=== PATIENT | male | born 1940 | race Caucasian/White ===

== ENCOUNTER 2018-04-30 05:35 | Emergency (ER) | payer MEDICARE ==
[~2018-04-30] VITALS: Ht 172.7 cm; Wt 81.6 kg
[~2018-04-30 05:35] MED LIST: ACET-687 PO; ASPI-484 PO; CARB1TAB2 PO; CARV6.25 PO; CLON0.5T11 PO; DIGO125T73 PO; METF500T27 PO; PANT40TA3 PO; PARO20TA4 PO; SIMV20TA3 PO; WARF-35 PO
--- NOTE | 2018-04-30 05:50 | ER.PDOC ---
General Chief Complaint: Requesting Medical Care Stated Complaint: FALL Time seen by MD: 05:45 Source: patient Exam Limitations: no limitations History of Present Illness Initial Comments Head and pelvic pain S/P fall. Occurred: just prior to arrival Where: home Severity: moderate Injuries/Pain Location: head, pelvis Context: Lost Balance Loss of Consciousness: No Loss of Consciousness Associated Symptoms: denies symptoms Allergies: Coded Allergies: morphine (Verified Allergy, Severe, HALLUCINATIONS, 10/27/16) MEDS Active Scripts Acetaminophen With Codeine (TYLENOL WITH CODEINE #4 TABLET) 1 Each Tablet, 1-2 EACH PO Q4 PRN for PAIN, #30 TABLET 2 Refills Prov:LILIBETH BOSS Roberto HAND SPRING REPAIRER 11/04/16 Reported Medications Metformin Hcl (METFORMIN HCL ER) 500 Mg Tab.er.24, 1 TAB PO DAILY, #90 TAB 1 Refill 10/28/16 Pantoprazole Sodium (PROTONIX) 40 Mg Tablet.dr, 1 TAB PO BID, #30 TAB 5 Refills 10/27/16 Carbidopa/Levodopa (SINEMET 25-100 MG TABLET) 1 Each Tablet, 1 TAB PO TID, #90 TAB 5 Refills 10/27/16 Clonazepam (CLONAZEPAM) 0.5 Mg Tablet, 1 TAB PO TID, #60 TAB 1 Refill 10/27/16 Aspirin (ASPIR 81) 81 Mg Tablet.dr, 1 TAB PO DAILY, #30 TAB 5 Refills 10/27/16 Warfarin Sodium (WARFARIN SODIUM) 5 Mg Tablet, 0.5 TAB PO DAILY, #90 TAB 3 Refills TUESDAY-TUESDAY AND Tuesday10/27/16 Warfarin Sodium (WARFARIN SODIUM) 5 Mg Tablet, 1 TAB PO DAILY, #90 TAB 1 Refill [id number] AND Tuesday10/27/16 Carvedilol 6.25MG (COREG 6.25MG) 6.25 Mg Tablet, 1 TAB PO BID, #180 TAB 1 Refill 10/27/16 Digoxin (Digitek) 125 Mcg Tablet, 125 MCG PO DAILY, TABLET 10/27/16 Simvastatin (SIMVASTATIN) 20 Mg Tablet, 1 TAB PO HS, #30 TAB 5 Refills 10/27/16 Paroxetine Hcl (PAROXETINE HCL) 20 Mg Tablet, 1 TAB PO HS, #30 TAB 5 Refills 10/27/16 Past Medical History Medical History: other (Parkinson) Review of Systems Constitutional: no symptoms reported Eyes: no symptoms reported Respiratory: no symptoms reported Cardiovascular: no symptoms reported Gastrointestinal: no symptoms reported Psychiatric/Neurological: see HPI All Other Systems: Reviewed and Negative Physical Exam General Appearance: No Apparent Distress, WD/WN, C-collar Head: No Evidence of Injury Neck: Normal Alignment, Normal Inspection, Tenderness Cardiovascular/Respiratory: Regular Rate, Rhythm, No M/R/G, Normal Peripheral Pulses, No JVD, Normal Breath Sounds, No Respiratory Distress Gastrointestinal: Normal Bowel Sounds, No Organomegaly, No Pulsatile Mass, Non Tender, Soft Back: Normal Inspection, No CVA Tenderness, No Vertebral Tenderness Extremities: Tenderness (pelvis) Neurologic/Psychiatric: practice managers II-XII NML as Tested, No Motor/Sensory Deficits, Alert, Normal Mood/Affect, Oriented x 3 Skin: Normal Color, Warm/Dry, Ecchymosis (right elbow from a fall 2 days ago) Oscar Coma Score Best Eye Response: (4) Open Spontaneously Best Verbal Response: (5) Oriented Best Motor Response: (6) Obeys Commands Results/Orders Results/Orders Laboratory Tests Test 04/30/18 06:05 04/30/18 06:21 White Blood Count 8.3 10^3/uL (4.5-11.0) Red Blood Count 4.18 10^6/uL (4.50-5.90) Hemoglobin 12.7 g/dL (13.9-16.3) Hematocrit 37.8 % (37.0-53.0) Mean Corpuscular Volume 90.4 fL (78-100) Mean Corpuscular Hemoglobin 30.4 pg (26-34) Mean Corpuscular Hemoglobin Concent 33.6 g/dL (33-37) Red Cell Distribution Width 16.9 % (11.5-14.5) Platelet Count 115 10^3/uL (150-400) Mean Platelet Volume 10.4 fL (7.8-11.0) Neutrophils (%) (Auto) 84.1 % (41.0-85.0) Lymphocytes (%) (Auto) 6.7 % (24.0-44.0) Monocytes (%) (Auto) 8.9 % (5.0-12.0) Neutrophils # (Auto) 7.0 10^3/uL (1.8-7.7) Lymphocytes # (Auto) 0.6 10^3/uL (1.0-4.8) Monocytes # (Auto) 0.7 10^3/uL (0.3-0.8) Absolute Immature Granulocyte (auto 0.01 10^3 u/L (0-2) Eosinophils % 0.1 % (0.0-5.0) Basophils % 0.1 % (0.0-0.2) Basophils # 0.0 10^3/uL (0.0-0.1) Eosinophil Count 0.0 10^3/uL (0.0-0.2) Prothrombin Time 36.5 SEC (9.8-11.9) Prothrombin Time INR (Non-Therap) 3.8 Activated Partial Thromboplast Time 41.0 SEC (24.67-30.72) Sodium Level 142 mmol/L (132-145) Potassium Level 4.1 mmol/L (3.6-5.2) Chloride Level 105.0 mmol/L (96-109) Carbon Dioxide Level 27.1 mmol/L (20.0-32) Anion Gap 14.0 Blood Urea Nitrogen 23 mg/dL (7-18) Creatinine 1.37 mg/dL (0.59-1.40) Estimated GFR () 60.6 (>/=60) BUN/Creatinine Ratio 16.0 Glucose Level 115 mg/dL (70-110) Calcium Level 8.2 mg/dL (8.4-10.5) Total Bilirubin 0.5 mg/dL (0.2-1.0) Aspartate Amino Transf (AST/SGOT) 36 U/L (0-35) Alanine Aminotransferase (ALT/SGPT) 24 U/L (12-78) Alkaline Phosphatase 50 U/L (50-136) Total Creatine Kinase 469 U/L (39-308) Troponin I 0.13 ng/mL (0.00-0.05) Total Protein 6.7 g/dL (6.4-8.2) Albumin 3.5 g/dL (3.4-5.0) Globulin 3.2 Percent Immature Gran (Cell Imm) 0.10 % (0.00-0.50) Differential Total Cells Counted 100 #CELLS Segmented Neutrophils 79 % (31-76) Band Neutrophils 10 % (2-6) Lymphocytes 6 % (25-36) Monocytes 5 % (3-9) Progress Progress Care of patient transferred to Dr. Milligan at 7am Departure Time of Disposition: 07:16 Disposition: 02 XFER SHT-TRM HOSP Impression: Primary Impression: Non-STEMI (non-ST elevated myocardial infarction) Condition: Stable Referrals: MONET HERNANDEZ (PCP) PRIMARY CARE PROVIDER Duration or Time Spent with Pa: 10 ELIANA DELGADILLO MD Apr 30, 2018 05:50 KEN MILLIGAN MD Apr 30, 2018 07:18
--- NOTE | 2018-04-30 05:56 | PCM.EKG ---
[facility] Test Date: 2018-04-30 Test Time: 05:51:46 Pat Name: MAGEN KWOK Department: Room: Gender: M Spacer Type Bar And Segment: : 1940 Requested By: ELIANA DELGADILLO Order Number: [id number] Reading MD: Eliana DELGADILLO Measurements Intervals [place] Rate: 84 P: 58 NC: 158 QRS: 42 QRSD: 156 T: -40 QT: 406 QTc: 479 Interpretive Statements Electronic ventricular pacemaker No previous ECG available for comparison Electronically Signed On 05-01-2018 7:27:23 PARTS RUNNER by Eliana DELGADILLO Please click the below link to view image of tracing.
[2018-04-30 06:12] LABS: BASOPHIL % 0.1 % (0.0-0.2); EOSINOPHIL % 0.1 % (0.0-5.0); HEMOGLOBIN 12.7 g/dL (13.9-16.3); LYMPHOCYTES # 0.6 10^3/uL (1.0-4.8); LYMPHOCYTES % 6.7 % (24.0-44.0); MEAN CELL HGB 30.4 pg (26-34); MEAN CELL HGB CONCENTRATION 33.6 g/dL (33-37); MEAN CORP VOLUME 90.4 fL (78-100); MEAN PLATELET VOLUME 10.4 fL (7.8-11.0); MONOCYTES # 0.7 10^3/uL (0.3-0.8); MONOCYTES % 8.9 % (5.0-12.0); NEUTROPHILS % 84.1 % (41.0-85.0); RED CELL DISTRIBUTION WIDTH 16.9 % (11.5-14.5); WHITE BLOOD CELL 8.3 10^3/uL (4.5-11.0)
[2018-04-30 06:40] LABS: CALCIUM 8.2 mg/dL (8.4-10.5); CARBON DIOXIDE 27.1 mmol/L (20.0-32)
--- NOTE | 2018-04-30 06:43 | DIREP ---
PROCEDURE:CT HEAD WITHOUT CONTRAST TECHNIQUE:Axial cuts were obtained through the head, without intravenous contrast material. The images were viewed at brain and bone settings. COMPARISON:None. INDICATIONS:Pain S/P fall FINDINGS: VENTRICLES:The ventricles and sulci are prominent consistent with age related atrophy. CEREBRUM:There is periventricular and deep white matter hypoattenuation most likely related to chronic small vessel ischemic changes. No hemorrhage is seen. There is no mass effect. If signs and symptoms continue follow up MRI may be beneficial as CT is not sensitive for acute/subacute stroke. CEREBELLUM:Negative. BRAINSTEM:Negative. BASAL CISTERNS:Negative. SKULL:Normal. SINUSES:Mucosal thickening in the bilateral ethmoid air cells and left maxillary sinus. OTHER:None CONCLUSION: 1. No acute intracranial hemorrhage or mass effect. Age related atrophy and chronic small vessel ischemic changes. 2. Extensive ethmoid air cell and left maxillary sinus disease. Dictated by: Deon Zamora MD on 04/30/2018 at 06:38 AM
--- NOTE | 2018-04-30 06:45 | DIREP ---
PROCEDURE:CHEST 1 VIEW COMPARISON:[facility], CR, XRAY CHEST SINGLE VW, 11/01/2016, 10:21 AM. [facility], CR, XRAY CHEST 2 VWS, 10/27/2016, 04:07 PM. INDICATIONS:cough FINDINGS: LUNGS/PLEURA:Evaluation of left lung base is limited due to overlying cardiac silhouette. Left basilar atelectasis. Right lung is clear. VASCULATURE:Mildly prominent central pulmonary vasculature. CARDIAC:Enlarged cardiac silhouette possibly exaggerated by portable technique. MEDIASTINUM:Normal. No visible mass or adenopathy. BONES:Normal. No fracture or visible bony lesion. OTHER:Negative. CONCLUSION:Limited portable. Retrocardiac opacity cannot be excluded. Clear right lung. Dictated by: Deon Zamora MD on 04/30/2018 at 06:41 AM
--- NOTE | 2018-04-30 06:45 | DIREP ---
PROCEDURE:XRAY ELBOW 2VWS-RT COMPARISON:None. INDICATIONS:Pain S/P fall FINDINGS: BONES:Normal. JOINTS:Normal. No displaced anterior or posterior fat pads. SOFT TISSUES:Normal. OTHER:Normal. CONCLUSION:No acute bony findings. Dictated by: Deon Zamora MD on 04/30/2018 at 06:43 AM
--- NOTE | 2018-04-30 06:52 | DIREP ---
PROCEDURE: CT SPINE CERVICAL W/O COMPARISON:None. INDICATIONS:Pain S/P fall FINDINGS: ALIGNMENT:Straightening the normal cervical curvature. VERTEBRAE:Endplate Schmorl's nodes are seen at C5-C7. No compression fracture noted. PARASPINAL AREA:Normal. OTHER:No additional findings. CERVICAL DISC LEVELS C2-C3:Large exophytic left-sided facet hypertrophy causing severe left neural foraminal narrowing. C3-C4:Moderate disc height loss. Bilateral facet hypertrophy and posterior disc osteophyte complex causing severe neural from narrowing bilaterally. C4-C5:Bilateral facet hypertrophy causing moderate severe neural foraminal narrowing bilaterally. C5-C6:Severe disc height loss. Bilateral facet hypertrophy causing moderate bilateral neural foraminal narrowing. C6-C7:Severe disc height loss. Bilateral facet hypertrophy and disc osteophyte complex causing moderate severe bilateral neural foraminal narrowing and moderate spinal canal narrowing. C7-T1:Normal. CONCLUSION: No fracture or listhesis. Multilevel degenerative changes with moderate to severe neural foraminal narrowing as above. Dictated by: Deon Zamora MD on 04/30/2018 at 06:44 AM
[2018-04-30 06:54] LABS: BAND NEUTROPHILS 10 % (2-6); LYMPHOCYTE 6 % (25-36); MONOCYTE 5 % (3-9); SEGMENTED NEUTROPHILS 79 % (31-76)
--- NOTE | 2018-04-30 06:56 | NUR ---
C-COLLAR CLEARED BY EDP
--- NOTE | 2018-04-30 07:01 | DIREP ---
PROCEDURE:CT PELVIS W/O COMPARISON:None. INDICATIONS:Pain S/P fall TECHNIQUE:Axial images were created through the pelvis without intravenous contrast material. No oral contrast was administered. Sagittal and coronal reconstructions were performed from source images. FINDINGS: AORTA/VASCULAR:Atherosclerotic plaque. RETROPERITONEUM:Normal. No mass or adenopathy. BOWEL/MESENTERY:Diverticulosis without CT evidence of diverticulitis. ABDOMINAL WALL:Normal. No mass or hernia. PELVIC ORGANS:Enlarged prostate measuring 5.2 cm. Mild bladder wall thickening. BONES:Normal for age. No bony lesion or acute fracture. OTHER:Negative. CONCLUSION: No acute findings. Diverticulosis without CT evidence of diverticulitis. Enlarged prostate. Dictated by: Deon Zamora MD on 04/30/2018 at 06:52 AM
--- NOTE | 2018-04-30 07:25 | NUR ---
[facility] ON COMPLETE DIVERS[facility].
--- NOTE | 2018-04-30 07:28 | NUR ---
[facility] UNABLE TO TAKE PATIENT AT THIS TIME.
--- NOTE | 2018-04-30 07:29 | NUR ---
[facility] PATIENT FAMILY AGREES TO PATIENT GOING TO [facility] FOR CARDIAC.
[2018-04-30 07:37] VITALS: BP 139/69
[2018-04-30] MEDS ORDERED: LOPRESSER IVP STA (07:42)
[2018-04-30] MEDS ORDERED: ASPIRIN ONE (07:48)
[2018-04-30] MEDS ORDERED: ASPIRIN PO STA (07:48)
[2018-04-30] MEDS ORDERED: LOPRESSER ONE (07:48)
[2018-04-30] MEDS ORDERED: LIPITOR PO SCH (08:00)
--- NOTE | 2018-04-30 08:06 | NUR ---
REPEAT EKG CALLED FOR REPEAT EKG.
--- NOTE | 2018-04-30 08:08 | NUR ---
[facility] DISPTACH CALLED FOR STATUS OF LIFE [facility]AR.
--- NOTE | 2018-04-30 08:16 | PCM.EKG ---
[facility] Test Date: 2018-04-30 Test Time: 08:11:59 Pat Name: MAGEN KWOK Department: Room: Gender: M Ssis Architect: : 1940 Requested By: KEN MILLIGAN Order Number: [id number] Reading MD: Ken Milligan Measurements Intervals [place] Rate: 122 P: 78 ND: 120 QRS: -53 QRSD: 162 T: 117 QT: 340 QTc: 484 Interpretive Statements Sinus tachycardia with fusion complexes with junctional escape complexes Left axis deviation Left bundle branch block Abnormal ECG No previous ECG available for comparison Electronically Signed On 05-06-2018 2:52:29 TOXICS PROGRAM OFFICER by Ken Milligan Please click the below link to view image of tracing.
[2018-04-30 08:19] VITALS: BP 150/96
--- NOTE | 2018-04-30 08:23 | NUR ---
REPORT CALLED TO [facility] ER.
--- NOTE | 2018-04-30 08:30 | NUR ---
[facility] RESUMED REPORT OF PATIENT AT THIS TIME.
[2018-04-30 09:11] VITALS: BP 150/96
== END 2018-04-30 08:40 | disposition short-term general hospital (02) ==
LOC: EDUNIT# 05:35 → EDBD 05:35 → ER 05:35
DX: S50.01XA Contusion of right elbow, initial encounter (principal); I21.4 Non-ST elevation (NSTEMI) myocardial infarction; R10.2 Pelvic and perineal pain; R51 Headache; Z79.01 Long term (current) use of anticoagulants; Z88.5 Allergy status to narcotic agent; Z79.82 Long term (current) use of aspirin; Z79.899 Other long term (current) drug therapy; W19.XXXA Unspecified fall, initial encounter; Y93.89 Activity, other specified; Y92.098 Other place in other non-institutional residence as the place of occurrence of the external cause; Y99.8 Other external cause status
CPT/HCPCS: 36415; 70450; 71045; 72125; 72192; 73070; 80053; 82550; 84484; 85025; 85610; 85730; 93005 ×2; 96374; 99285; J3490

== ENCOUNTER 2018-06-03 13:59 | Inpatient (IN) | payer MEDICARE ==
[2018-06-03] VITALS (16 sets, daily range): BP systolic 84–156; BP diastolic 36–99
[~2018-06-03] VITALS: Ht 172.7 cm; Wt 82.6 kg
[2018-06-03] MEDS ORDERED: NS 1000ML 1,000 ML IV STA (14:38)
[2018-06-03 14:56] LABS: BASOPHIL % 0.2 % (0.0-0.2); EOSINOPHIL # 0.1 10^3/uL (0.0-0.2); HEMOGLOBIN 10.8 g/dL (13.9-16.3); LYMPHOCYTES # 1.1 10^3/uL (1.0-4.8); LYMPHOCYTES % 12.2 % (24.0-44.0); MEAN CELL HGB CONCENTRATION 32.5 g/dL (33-37); MEAN CORP VOLUME 95.4 fL (78-100); MEAN PLATELET VOLUME 10.2 fL (7.8-11.0); MONOCYTES % 10.5 % (5.0-12.0); RED CELL DISTRIBUTION WIDTH 17.2 % (11.5-14.5); WHITE BLOOD CELL 9.2 10^3/uL (4.5-11.0)
[2018-06-03 15:12] LABS: CALCIUM 8.6 mg/dL (8.4-10.5); CARBON DIOXIDE 27.5 mmol/L (20.0-32)
--- NOTE | 2018-06-03 15:13 | ER.PDOC ---
General Chief Complaint: Skin Rash/Abscess Stated Complaint: BLISTER/SWOLLEN L FT. Time seen by MD: 15:08 Source: patient, family Exam Limitations: no limitations History of Present Illness Initial Comments Left leg swelling and pain S/P fall 5 days ago. Patient also developed blisters. Patient seen in [place] ED 3 days ago. Where: home Severity: moderate Exacerbated By: walking movement Relieved By: nothing Prior symptoms/Treatment: Recenly Seen, Treated by Doctor Allergies: Coded Allergies: morphine (Verified Allergy, Severe, HALLUCINATIONS, 10/27/16) Home Meds Active Scripts Acetaminophen With Codeine (TYLENOL WITH CODEINE #4 TABLET) 1 Each Tablet, 1-2 EACH PO Q4 PRN for PAIN, #30 TABLET 2 Refills Prov:LILIBETH BOSS NP 11/04/16 Reported Medications Metformin Hcl (METFORMIN HCL ER) 500 Mg Tab.er.24, 1 TAB PO DAILY, #90 TAB 1 Refill 10/28/16 Pantoprazole Sodium (PROTONIX) 40 Mg Tablet., 1 TAB PO BID, #30 TAB 5 Refills 10/27/16 Carbidopa/Levodopa (SINEMET 25-100 MG TABLET) 1 Each Tablet, 1 TAB PO TID, #90 TAB 5 Refills 10/27/16 Clonazepam (CLONAZEPAM) 0.5 Mg Tablet, 1 TAB PO TID, #60 TAB 1 Refill 10/27/16 Aspirin (ASPIR 81) 81 Mg Tablet.dr, 1 TAB PO DAILY, #30 TAB 5 Refills 10/27/16 Warfarin Sodium (WARFARIN SODIUM) 5 Mg Tablet, 0.5 TAB PO DAILY, #90 TAB 3 Refills TUESDAY-TUESDAY AND Tuesday10/27/16 Warfarin Sodium (WARFARIN SODIUM) 5 Mg Tablet, 1 TAB PO DAILY, #90 TAB 1 Refill [id number] AND Tuesday10/27/16 Carvedilol 6.25MG (COREG 6.25MG) 6.25 Mg Tablet, 1 TAB PO BID, #180 TAB 1 Refill 10/27/16 Digoxin (Digitek) 125 Mcg Tablet, 125 MCG PO DAILY, TABLET 10/27/16 Simvastatin (SIMVASTATIN) 20 Mg Tablet, 1 TAB PO HS, #30 TAB 5 Refills 10/27/16 Paroxetine Hcl (PAROXETINE HCL) 20 Mg Tablet, 1 TAB PO HS, #30 TAB 5 Refills 10/27/16 Past Medical History Medical History: arrhythmia, coronary artery disease, cardiac problems, congestive heart failure, diabetes, high cholesterol, hypertension, parkinson, renal disease Surgical History: cardiac cath, angioplasty, knee, pacemaker/ICD, stent Social History Smoking: non-smoker Alcohol Use: none Drug Use: none Review of Systems Constitutional: no symptoms reported EENTM: no symptoms reported Respiratory: no symptoms reported Cardiovascular: no symptoms reported Gastrointestinal: no symptoms reported Musculoskeletal: see HPI Skin: see HPI All Other Systems: Reviewed and Negative Physical Exam General Appearance: Alert, No Apparent Distress Lower Extremity: tenderness (left leg), swelling (left leg with blisters on medial aspect of distal leg and dorsal aspect of foot) Joint Exam: joints nml, nml ROM, nml gait/weight bearing Vascular: poor cap refill (with paresthesia of left leg), decreased pulses Neuro/Psych: sensation nml, motor nml, oriented x3, CN's nml as tested, mood/ affect nml Skin: color nml, warm/dry Back/Neck: nml inspection Respiratory: no resp distress, breath sounds nml CVS: reg rate & rhythm, heart sounds nml Abdomen: non-tender, no organomegaly, no bruit/mass Results/Orders Results/Orders Laboratory Tests Test 06/03/18 14:40 White Blood Count 9.2 10^3/uL (4.5-11.0) Red Blood Count 3.48 10^6/uL (4.50-5.90) Hemoglobin 10.8 g/dL (13.9-16.3) Hematocrit 33.2 % (37.0-53.0) Mean Corpuscular Volume 95.4 fL (78-100) Mean Corpuscular Hemoglobin 31.0 pg (26-34) Mean Corpuscular Hemoglobin Concent 32.5 g/dL (33-37) Red Cell Distribution Width 17.2 % (11.5-14.5) Platelet Count 165 10^3/uL (150-400) Mean Platelet Volume 10.2 fL (7.8-11.0) Neutrophils (%) (Auto) 76.0 % (41.0-85.0) Lymphocytes (%) (Auto) 12.2 % (24.0-44.0) Monocytes (%) (Auto) 10.5 % (5.0-12.0) Neutrophils # (Auto) 7.0 10^3/uL (1.8-7.7) Lymphocytes # (Auto) 1.1 10^3/uL (1.0-4.8) Monocytes # (Auto) 1.0 10^3/uL (0.3-0.8) Absolute Immature Granulocyte (auto 0.01 10^3 u/L (0-2) Eosinophils % 1.0 % (0.0-5.0) Basophils % 0.2 % (0.0-0.2) Basophils # 0.0 10^3/uL (0.0-0.1) Eosinophil Count 0.1 10^3/uL (0.0-0.2) Prothrombin Time 22.2 SEC (9.8-11.9) Prothrombin Time INR (Non-Therap) 2.3 Activated Partial Thromboplast Time 37.4 SEC (24.67-30.72) Sodium Level 141 mmol/L (132-145) Potassium Level 4.3 mmol/L (3.6-5.2) Chloride Level 105.0 mmol/L (96-109) Carbon Dioxide Level 27.5 mmol/L (20.0-32) Anion Gap 12.8 Blood Urea Nitrogen 25 mg/dL (7-18) Creatinine 1.53 mg/dL (0.59-1.40) Estimated GFR () 53.4 (>/=60) BUN/Creatinine Ratio 16.0 Glucose Level 125 mg/dL (70-110) Calcium Level 8.6 mg/dL (8.4-10.5) Total Bilirubin 0.9 mg/dL (0.2-1.0) Aspartate Amino Transf (AST/SGOT) 60 U/L (0-35) Alanine Aminotransferase (ALT/SGPT) 12 U/L (12-78) Alkaline Phosphatase 58 U/L (50-136) Total Protein 6.7 g/dL (6.4-8.2) Albumin 3.5 g/dL (3.4-5.0) Globulin 3.2 Percent Immature Gran (Cell Imm) 0.10 % (0.00-0.50) Administered Medications Medications (Trade) Dose Ordered Sig/Feliz Route PRN Reason Start Time Stop Time Status Last Admin Dose Admin Sodium Chloride 1,000 ml @ 1,200 mls/hr Q50M STAT IV 06/03/18 14:38 06/03/18 15:27 DC 06/03/18 14:53 Microbiology Date/Time Source Procedure Growth Status 06/03/18 14:40 Leg Left Gram Stain - Final Resulted 06/03/18 14:40 Leg Left Wound Culture Pending Resulted Progress Progress CT lower extremity: No evidence of acute bony or joint abnormality. Abnormal high density soft tissue in the lateral space suggesting hematoma. This should be evaluated in its clinical context to determine if additional evaluation is warranted. Departure Time of Disposition: 17:22 Disposition: 09 ADMITTED INPATIENT Impression: Primary Impression: Compartment syndrome of left lower extremity Additional Impression: Leg injury Condition: Stable Referrals: MONET HERNANDEZ (PCP) PRIMARY CARE PROVIDER Comments Patient taken to Surgery by Dr. Calle and will be admitted. Duration or Time Spent with Pa: 60 mins Problem Qualifiers Primary Impression: Compartment syndrome of left lower extremity Encounter type: initial encounter Qualified Codes: T79.A22A - Traumatic compartment syndrome of left lower extremity, initial encounter Additional Impression: Leg injury Encounter type: initial encounter Laterality: left Qualified Codes: S89.92XA - Unspecified injury of left lower leg, initial encounter ELIANA DELGADILLO MD Jun 03, 2018 15:13
--- NOTE | 2018-06-03 16:09 | DIREP ---
PROCEDURE:CT LOWER EXTREMITY-LT W/O COMPARISON:None. INDICATIONS:Pain and swelling of leg with blisters S/P fall 5 days ago. TECHNIQUE:Multi-planar CT images of the left calf were created without intravenous contrast. FINDINGS: BONES: No visible fracture. Knee arthroplasty. Old fracture deformity of the distal fibula. JOINTS: No dislocation. Degenerative changes to the ankle. OTHER: Localize high density soft tissue in the lateral calf measuring 28.2 x 10.1 x 4.0 cm. CONCLUSION: 1. No evidence of acute bony or joint abnormality. Abnormal high density soft tissue in the lateral space suggesting hematoma. This should be evaluated in its clinical context to determine if additional evaluation is warranted. Dictated by: Viraj Daigle M.D. on 06/03/2018 at 03:57 PM
[2018-06-03] MEDS ORDERED: VITAMIN K IM STA (16:53)
[2018-06-03] MEDS ORDERED: SODIUM CHLORIDE IR ONE (17:05)
[2018-06-03] MEDS ORDERED: NS 1000ML 1,000 ML ONE (17:21)
[2018-06-03] MEDS ORDERED: SUBLIMAZE ONE (17:22)
[2018-06-03] MEDS ORDERED: DIPRIVAN IV ONE (17:22)
[2018-06-03] MEDS ORDERED: DECADRON ONE (17:22)
[2018-06-03] MEDS ORDERED: NS 100ML 100 ML IV ONE ×2 (17:22→23:50)
[2018-06-03] MEDS ORDERED: AMIDATE IV ONE (17:22)
[2018-06-03] MEDS ORDERED: ZOFRAN ONE (17:22)
[2018-06-03] MEDS ORDERED: VITAMIN K ONE ×2 (17:24→17:42)
--- NOTE | 2018-06-03 17:39 | HPH ---
ADMIT DATE: 06/03/2018 CHIEF COMPLAINT: Painful left lower leg. HISTORY OF PRESENT ILLNESS: The patient is a 77-year-old male. He fell approximately 5-6 days ago at home injuring his left lower leg. Apparently, at first he was able to ambulate, but over the next several days, he began having more pain and swelling about the left lower leg. On , which was approximately 2 days ago, he was seen in the Emergency Room in [place] where he was advised to keep his leg elevated and use ice packs. The patient continued to have pain and swelling about the left leg and his family brought him to the Emergency Room in [place] today. The patient is on Coumadin for cardiac reasons. According to the family on Tuesday, he saw his showcase maker and his INR was elevated and they advocated that he stop his Coumadin at that point. The patient has been off Coumadin for the last 3 days. PAST MEDICAL HISTORY: Medical problems include history of atrial fibrillation, history of congestive heart failure, coronary artery disease. He has diabetes, hypertension, Parkinson's. MEDICATIONS: Please see list on the chart. ALLERGIES: Include MORPHINE and CODEINE PAST SURGICAL HISTORY: Includes bilateral knee replacement, pacemaker and defibrillator placement, placement of cardiac stent. REVIEW OF SYSTEMS: Positive for numbness about the left lower leg, but is negative for chest pain, shortness of breath, nausea, vomiting, melena, hematochezia, dysuria, hematuria, fever, chills, or weight loss. FAMILY HISTORY: Unknown. PHYSICAL EXAMINATION: GENERAL: Shows a healthy-appearing 77-year-old male in no acute distress. HEENT: Within normal limits. CHEST: Clear to auscultation. HEART: Regular rate and rhythm, no murmur. EXTREMITIES: The patient's left lower extremity distal to the knee, he has quite a few fracture blisters, some have already popped and others are still present. On the dorsal aspect of his foot, he has a fairly large fracture blister. The patient is unable to extend his toes, but he is able to plantar flex his toes. He really has no dorsi or plantar flexion about his ankle. He has diffuse numbness over the plantar medial, dorsal and lateral aspect of his left foot compared to the right. The patient's compartments are extremely swollen and very tight. He does not have any pain with passive flexion and extension of his toes. He has a 1+ dorsalis pedis pulse. The patient has quite a bit of bruising all down the lateral side of his leg. IMAGING: The patient's x-rays are negative for any fractures. His CT scan shows a hematoma anterolaterally. The patient's upper extremities and right lower extremities have no areas of tenderness or deformity. He has normal sensation about the left lower extremity including the left foot and ankle with normal flexion and extension of his toes and ankles. ASSESSMENT: Compartment syndrome, left lower leg. Other diagnoses include diabetes, hypertension, coronary artery disease, history of atrial fibrillation, history of coronary artery disease, Coumadin toxicity history. PLAN: The patient will be taken to the operating room for fasciotomies. The risks and hazards of the procedure have been discussed with the family. He will be given fresh frozen plasma. The patient and the family understand there will be multiple procedures. Oseas Calle MD DR: ANILA/gabby JOB# [id number]
[2018-06-03] MEDS ORDERED: ANCEF ONE ×2 (17:46→23:49)
[2018-06-03] MEDS ORDERED: NS 250ML 250 ML IV ONE (17:46)
[2018-06-03] MEDS ORDERED: LACTATED RINGERS 1,000 ML ONE (18:50)
[2018-06-03] MEDS ORDERED: ZOFRAN IV PRN ×2 (19:30)
[2018-06-03] MEDS ORDERED: VENTOLIN IH PRN (19:30)
[2018-06-03] MEDS ORDERED: BENADRYL IV PRN (19:30)
[2018-06-03] MEDS ORDERED: SUBLIMAZE IV PRN (19:30)
[2018-06-03] MEDS ORDERED: LACTATED RINGERS 1,000 ML IV SCH (19:30)
[2018-06-03] MEDS ORDERED: CEPACOL SORE THROAT LOZENGE MM PRN (19:30)
[2018-06-03] MEDS: DEMEROL IV PRN (20:01)
[2018-06-03] MEDS ORDERED: NS 500ML 500 ML IV STA (20:48)
[2018-06-03] MEDS ORDERED: TOPROL XL PO STA (20:48)
--- NOTE | 2018-06-03 20:54 | PCM.EKG ---
[facility] Test Date: 2018-06-03 Test Time: 20:39:53 Pat Name: MAGEN KWOK Department: Room: 340 A Gender: M Family Preservation Worker: CATY : 1940 Requested By: LONG ORTEGA Order Number: [id number] Reading MD: Ruben Gonzalez Measurements Intervals [place] Rate: 119 P: NV: QRS: -44 QRSD: 174 T: 120 QT: 426 QTc: 599 Interpretive Statements Atrial fibrillation with occasional Left axis deviation Left bundle branch block Abnormal ECG Compared to ECG 04/30/2018 08:11:59 Sinus tachycardia no longer present Junctional escape complex(es) no longer present Fusion complex(es) no longer present Electronically Signed On 06-05-2018 7:59:09 PRODUCTION TROUBLESHOOTER by Ruben Gonzalez Please click the below link to view image of tracing.
[2018-06-03] MEDS ORDERED: LOPRESSER ONE (20:57)
[2018-06-03] MEDS: PAXIL PO SCH (20:59)
[2018-06-03] MEDS: PROTONIX PO SCH (20:59)
[2018-06-03] MEDS: SINEMET 25/100 PO SCH (20:59)
[2018-06-03] MEDS: COREG PO SCH (21:00)
[2018-06-03] MEDS: KLONOPIN PO SCH (21:00)
[2018-06-03] MEDS: ANCEF 2 GM/D5W 50ML IV SCH (23:53)
[2018-06-04] MEDS: ULTRAM PO PRN ×3 (00:01→21:26)
--- NOTE | 2018-06-04 01:20 | OPH ---
DATE OF SURGERY: 06/03/2018 PREOPERATIVE DIAGNOSES: 1. Compartment syndrome of the left lower leg. 2. Hematoma, left lower leg. POSTOPERATIVE DIAGNOSES: 1. Compartment syndrome of the left lower leg. 2. Hematoma, left lower leg. OPERATIVE PROCEDURES: 1. I and D of a large hematoma over the anterolateral aspect of the left lower leg. 2. Full compartment fasciotomy, left lower leg. SURGEON: Oseas Calle MD ANESTHESIA: LMA. TOURNIQUET TIME: 23 minutes at 300 mmHg. DRAINS: None. BLOOD LOSS: 300 mL. DESCRIPTION OF INDICATIONS: The patient is a 77-year-old male. He fell approximately 5 days ago at home, injuring his left lower leg. Earlier that day, the patient had seen his psychiatric mental health nurse in [place] and he was informed that his INR was too high for his Coumadin therapy and was advised to stop his Coumadin 5 days ago. The Coumadin was stopped by the family. Over the next several days, the patient continued to have increasingly severe swelling about the left lower leg. Approximately 2 days ago, he was seen in the [facility] because of some fracture blisters about the left lower leg. He was advised to keep the leg elevated as much as possible and to stay off of it. The family brought him to the [facility] this afternoon because of continued swelling and more fracture blisters as well as some malodorous lesions about the left lower leg. They denied any fever or chills. The patient on exam complained of numbness about the medial, dorsal and lateral aspects of his left foot. He had no active extension of the toes or the ankle. He had slight flexion of the toes. The patient had an extreme amount of swelling anterolaterally as well as some pain medially and posteriorly about the leg. His compartments felt very tight. The patient really did not have any significant pain with flexion and extension of his toes or ankle. The patient had large fracture blisters on the dorsal portion of his foot. He had multiple areas of skin necrosis that were 3-4 cm in diameter in circular manner over the anterolateral border of his leg. The patient had 1+ dorsalis pedis pulse. The x-rays did not show any fractures. The CT scan showed large hematoma anterolaterally about his leg. The patient was felt to have a compartment syndrome of unknown duration. The patient has a certain amount of dementia and the family really cannot tell me exactly how long had he had numbness about his foot and ankle. It is my opinion that we should proceed with immediate fasciotomy of his leg with decompression of the hematoma. The patient already had numbness and weakness. However, I felt it was more prudent to proceed with decompression as opposed to observation, although the problem could have been several days old. The patient was taken to the operating room for the above procedures. DESCRIPTION OF PROCEDURE: The patient was placed on the operating table in the supine position. LMA anesthetic was induced without difficulty. The patient had the well-padded tourniquet placed around the right thigh. He was given 10 mg of vitamin K and 1 unit of fresh frozen plasma. His preoperative INR was 2.4. The patient then had the left lower extremity sterilely prepped and draped. The leg was elevated for 60 seconds and the tourniquet was inflated to 300 mmHg. The patient then had an anterolateral incision made about the leg extending from the fibular head down to about 2 inches proximal to the tip of the lateral malleolus. A huge hematoma under quite a bit of tension was encountered and decompressed. The patient had extremely large amount of hematoma compressing the anterior and lateral compartments. The hematoma was evacuated. The anterior compartment was decompressed from proximal to distal. Likewise, the lateral compartment was decompressed from proximal to distal over the shaft of the fibula. The patient then had an incision made just posterior to the posteromedial border of his tibia. The incision was taken through the skin and the subcutaneous tissues. The muscle belly was dissected off of the posteromedial edge of his tibia. This decompressed the deep compartment. The superficial compartment was decompressed through a separate fascial incision more posteriorly. Once the wounds were all irrigated, then the tourniquet was released. Any bleeding was controlled with the cautery. The wounds were left open and the wounds were dressed with Adaptic, 4 x 4s, ABD pad, cast padding and Ronaldo wrap from his knee down to his foot. The patient was extubated in the operating room and sent to recovery in stable condition. Oseas Calle MD DR: ANILA/gabby JOB# [id number]
[2018-06-04 01:27] VITALS: BP 107/63
[2018-06-04 04:47] VITALS: BP 104/64
[2018-06-04 05:41] LABS: HEMOGLOBIN 8.5 g/dL (13.9-16.3); MEAN CELL HGB 30.6 pg (26-34); MEAN CELL HGB CONCENTRATION 31.5 g/dL (33-37); MEAN CORP VOLUME 97.1 fL (78-100); MEAN PLATELET VOLUME 10.4 fL (7.8-11.0); RED CELL DISTRIBUTION WIDTH 17.1 % (11.5-14.5); WHITE BLOOD CELL 9.7 10^3/uL (4.5-11.0)
[2018-06-04] MEDS ORDERED: NS 100ML 100 ML IV ONE (06:15)
[2018-06-04] MEDS ORDERED: ANCEF ONE (06:15)
[2018-06-04] MEDS: ANCEF 2 GM/D5W 50ML IV SCH (06:21)
[2018-06-04 07:42] VITALS: BP 98/59
[2018-06-04] MEDS: COLACE PO SCH (08:21)
[2018-06-04] MEDS: SINEMET 25/100 PO SCH ×3 (08:21→21:23)
[2018-06-04] MEDS: LANOXIN PO SCH (08:21)
[2018-06-04] MEDS: KLONOPIN PO SCH ×3 (08:22→21:24)
[2018-06-04] MEDS: COREG PO SCH ×3 (08:22→21:24)
[2018-06-04] MEDS: PEPCID PO SCH (08:22)
[2018-06-04] MEDS: PROTONIX PO SCH ×2 (08:22→21:24)
[2018-06-04] MEDS: GLUCOPHAGE XR PO SCH (09:00)
--- NOTE | 2018-06-04 09:20 | PRM.CONS ---
Consultation History of Present Illness History of Patient Comments 77 yo male presented to with severe leg pain and swelling after a fall 4 days ago. Found to have hematoma and compartment syndrome of the left lower leg and went to OR early this AM for fasciotomy and hematoma evacuation. Pt. has end-stage Parkinson's Disease and has profound shuffling gait. Multiple recent falls including head trauma and bilateral LE injury. 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 Secondary to the pt's very high risk of continued falls and complications from those falls, I would not recommend he be on anything stronger than an 81 mg daily ASA. Risk of CVA in Afib and CHF is about 7% per year and is far outweighed by his risk of continued multiple falls and trauma. Continue IVF for JENNIFER. Thank you for consultation! Consultation # [id number] Review of Systems Allergies: Coded Allergies: morphine (Verified Allergy, Severe, HALLUCINATIONS, 10/27/16) codeine (Verified Allergy, Intermediate, 06/03/18) Scheduled Aspirin (Aspir 81), 1 TAB PO DAILY, (Reported) Carbidopa/Levodopa (Sinemet 25-100 Mg Tablet), 1 TAB PO TID, (Reported) Carvedilol 6.25MG (Coreg 6.25MG), 1 TAB PO BID, (Reported) Clonazepam (Clonazepam), 1 TAB PO TID, (Reported) Digoxin (Digitek), 125 MCG PO DAILY, (Reported) Metformin Hcl (Metformin Hcl Er), 1 TAB PO DAILY, (Reported) Pantoprazole Sodium (Protonix), 1 TAB PO BID, (Reported) Paroxetine Hcl (Paroxetine Hcl), 1 TAB PO HS, (Reported) Simvastatin (Simvastatin), 1 TAB PO HS, (Reported) Warfarin Sodium (Warfarin Sodium), 1 TAB PO DAILY, (Reported) Warfarin Sodium (Warfarin Sodium), 0.5 TAB PO DAILY, (Reported) Scheduled PRN Acetaminophen With Codeine (Tylenol With Codeine #4 Tablet), 1-2 EACH PO Q4 PRN for PAIN VTE VTE Risk Total Score: 3 VTE Risk Score VTE Risk: Score 0-1 = Low Risk (Aggressive mobilization; early ambulation; no VTE prophylaxis required) Score 2: Moderate Risk (Intermittent/Pneumatic Compression Device OR Lovenox/Heparin/Coumadin) Score 3-4: High Risk (Intermittent/Pneumatic Compression Device AND Lovenox/Heparin/Coumadin) Score > or =5: Highest Risk (Intermittent/Pneumatic Compression Device AND Lovenox/Heparin/Coumadin) Assessment/Plan Assessment/Plan Patient History: No known health problems 32 MOTHER, , Age:87 19 CHILD 19 CHILD, , Age:27 19 CHILD, , Age:54 Parkinson's disease G8 BROTHER, , Age:81 No Family History of: Alzheimer's disease Asthma Cerebrovascular disorder Chronic obstructive pulmonary disease Congestive heart failure Diabetes insipidus Diabetes mellitus Hypertension LONG ORTEGA MD Jun 04, 2018 09:20
[2018-06-04 11:56] VITALS: BP 100/53
--- NOTE | 2018-06-04 12:43 | PRM.PN ---
Subjective Subjective Date: Jun 04, 2018 Time: 12:41 Subjective Pain ok VSS HGB 8.5 postop anemia from surgery expected No sensation on foot but able to extend his toes Cont with PT IV antibiotics Patient History: No known health problems 32 MOTHER, , Age:87 19 CHILD 19 CHILD, , Age:27 19 CHILD, , Age:54 Parkinson's disease G8 BROTHER, , Age:81 No Family History of: Alzheimer's disease Asthma Cerebrovascular disorder Chronic obstructive pulmonary disease Congestive heart failure Diabetes insipidus Diabetes mellitus Hypertension VTE VTE Risk Total Score: 3 VTE Risk Score VTE Risk: Score 0-1 = Low Risk (Aggressive mobilization; early ambulation; no VTE prophylaxis required) Score 2: Moderate Risk (Intermittent/Pneumatic Compression Device OR Lovenox/Heparin/Coumadin) Score 3-4: High Risk (Intermittent/Pneumatic Compression Device AND Lovenox/Heparin/Coumadin) Score > or =5: Highest Risk (Intermittent/Pneumatic Compression Device AND Lovenox/Heparin/Coumadin) Review of Systems Allergies: Coded Allergies: morphine (Verified Allergy, Severe, HALLUCINATIONS, 10/27/16) codeine (Verified Allergy, Intermediate, 06/03/18) Scheduled Aspirin (Aspir 81), 1 TAB PO DAILY, (Reported) Carbidopa/Levodopa (Sinemet 25-100 Mg Tablet), 1 TAB PO TID, (Reported) Carvedilol 6.25MG (Coreg 6.25MG), 1 TAB PO BID, (Reported) Clonazepam (Clonazepam), 1 TAB PO TID, (Reported) Digoxin (Digitek), 125 MCG PO DAILY, (Reported) Metformin Hcl (Metformin Hcl Er), 1 TAB PO DAILY, (Reported) Pantoprazole Sodium (Protonix), 1 TAB PO BID, (Reported) Paroxetine Hcl (Paroxetine Hcl), 1 TAB PO HS, (Reported) Simvastatin (Simvastatin), 1 TAB PO HS, (Reported) Warfarin Sodium (Warfarin Sodium), 1 TAB PO DAILY, (Reported) Warfarin Sodium (Warfarin Sodium), 0.5 TAB PO DAILY, (Reported) Scheduled PRN Acetaminophen With Codeine (Tylenol With Codeine #4 Tablet), 1-2 EACH PO Q4 PRN for PAIN Objective Vitals and I/O Vital Sign - Last 24 Hours 06/03/18 06/03/18 06/03/18 06/03/18 14:09 14:14 14:18 14:23 Temp 98.9 98.9 98.9 98.9 Pulse 88 89 88 Resp 14 14 B/P (MAP) 115/52 (73) 84/36 (52) Pulse Ox 94 94 O2 Delivery Room Air Room Air 06/03/18 06/03/18 06/03/18 06/03/18 14:29 14:31 14:44 14:59 Pulse 85 81 82 B/P (MAP) 93/51 (65) Pulse Ox 96 88 92 06/03/18 06/03/18 06/03/18 06/03/18 15:14 15:27 15:29 15:48 Pulse 88 89 B/P (MAP) 105/61 (76) 156/90 (112) Pulse Ox 94 95 06/03/18 06/03/18 06/03/18 06/03/18 15:59 16:04 16:14 16:19 Pulse 92 97 B/P (MAP) 134/73 (93) 148/42 (77) 06/03/18 06/03/18 06/03/18 06/03/18 16:29 16:34 16:44 16:49 Pulse 82 99 B/P (MAP) 151/71 (97) 156/99 (118) 06/03/18 06/03/18 06/03/18 06/03/18 16:59 17:04 17:14 18:00 Temp 98.6 98.6 Pulse 92 87 109 Resp 14 B/P (MAP) 134/70 (91) 104/39 06/03/18 06/03/18 06/03/18 06/03/18 18:15 18:20 18:55 19:08 Temp 99.0 98.3 100.6 99.8 99.0 98.3 100.6 99.8 Pulse 70 108 122 90 Resp 14 14 18 18 B/P (MAP) 91/62 105/68 87/49 (62) 118/61 (80) Pulse Ox 97 95 O2 Delivery Non-Rebreather Room Air O2 Flow Rate 10 06/03/18 06/03/18 06/03/18 06/03/18 19:25 21:49 22:55 22:56 Temp 99.5 99.5 Pulse 92 80 Resp 18 18 16 B/P (MAP) 121/60 (80) Pulse Ox 97 97 97 O2 Delivery Room Air Nasal Cannula CPAP FiO2 30 06/03/18 06/03/18 06/04/18 06/04/18 22:56 23:40 01:27 04:30 Temp 97.8 97.8 Pulse 80 88 76 Resp 16 18 19 B/P (MAP) 107/63 (78) Pulse Ox 98 97 95 O2 Delivery C-Pap C-Pap C Pap CPAP FiO2 30 30 06/04/18 06/04/18 06/04/18 06/04/18 04:47 07:42 08:23 08:26 Temp 97.4 98.3 97.4 98.3 Pulse 68 72 72 Resp 30 20 B/P (MAP) 104/64 (77) 98/59 (72) 98/59 Pulse Ox 97 O2 Delivery C Pap Room Air Nasal Cannula O2 Flow Rate 2.00 06/04/18 06/04/18 06/04/18 10:01 10:15 11:56 Temp 98.1 98.1 Pulse 69 71 Resp 16 20 B/P (MAP) 100/53 (69) Pulse Ox 98 98 O2 Delivery Nasal Cannula Nasal Cannula O2 Flow Rate 2.00 2.00 FiO2 28 Intake and Output 06/03/18 06/03/18 06/04/18 15:00 23:00 07:00 Intake Total 9000 ml 200 ml Output Total 275 ml Balance 9000 ml -75 ml All Results(Lab/Rad) Laboratory Tests Test 06/03/18 14:40 06/04/18 05:26 White Blood Count 9.2 10^3/uL 9.7 10^3/uL Red Blood Count 3.48 10^6/uL 2.78 10^6/uL Hemoglobin 10.8 g/dL 8.5 g/dL Hematocrit 33.2 % 27.0 % Mean Corpuscular Volume 95.4 fL 97.1 fL Mean Corpuscular Hemoglobin 31.0 pg 30.6 pg Mean Corpuscular Hemoglobin Concent 32.5 g/dL 31.5 g/dL Red Cell Distribution Width 17.2 % 17.1 % Platelet Count 165 10^3/uL 145 10^3/uL Mean Platelet Volume 10.2 fL 10.4 fL Neutrophils (%) (Auto) 76.0 % Lymphocytes (%) (Auto) 12.2 % Monocytes (%) (Auto) 10.5 % Neutrophils # (Auto) 7.0 10^3/uL Lymphocytes # (Auto) 1.1 10^3/uL Monocytes # (Auto) 1.0 10^3/uL Absolute Immature Granulocyte (auto 0.01 10^3 u/L Eosinophils % 1.0 % Basophils % 0.2 % Basophils # 0.0 10^3/uL Eosinophil Count 0.1 10^3/uL Prothrombin Time 22.2 SEC Prothrombin Time INR (Non-Therap) 2.3 Activated Partial Thromboplast Time 37.4 SEC Sodium Level 141 mmol/L Potassium Level 4.3 mmol/L Chloride Level 105.0 mmol/L Carbon Dioxide Level 27.5 mmol/L Anion Gap 12.8 Blood Urea Nitrogen 25 mg/dL Creatinine 1.53 mg/dL Estimated GFR () 53.4 BUN/Creatinine Ratio 16.0 Glucose Level 125 mg/dL Calcium Level 8.6 mg/dL Total Bilirubin 0.9 mg/dL Aspartate Amino Transf (AST/SGOT) 60 U/L Alanine Aminotransferase (ALT/SGPT) 12 U/L Alkaline Phosphatase 58 U/L Total Protein 6.7 g/dL Albumin 3.5 g/dL Globulin 3.2 Percent Immature Gran (Cell Imm) 0.10 % Current Medications Medications (Trade) Dose Ordered Sig/Feliz Route PRN Reason Start Time Stop Time Status Last Admin Dose Admin Sodium Chloride 1,000 ml @ 1,200 mls/hr Q50M STAT IV 06/03/18 14:38 06/03/18 15:27 DC 06/03/18 14:53 Sodium Chloride (Sodium Chloride) 1,000 ml STK-MED ONCE IR 06/03/18 17:05 06/03/18 17:07 DC Sodium Chloride 1,000 ml @ ud STK-MED ONCE .ROUTE 06/03/18 17:21 06/03/18 17:23 DC Sodium Chloride 100 ml @ ud STK-MED ONCE IV 06/03/18 17:22 06/03/18 17:23 DC Dexamethasone Sodium Phosphate (Decadron) 4 mg STK-MED ONCE .ROUTE 06/03/18 17:22 06/03/18 17:23 DC Ondansetron HCl (Zofran) 4 mg STK-MED ONCE .ROUTE 06/03/18 17:22 06/03/18 17:23 DC Etomidate (Amidate) 40 mg STK-MED ONCE IV 06/03/18 17:22 06/03/18 17:23 DC Fentanyl Citrate (Sublimaze) 100 mcg STK-MED ONCE .ROUTE 06/03/18 17:22 06/03/18 17:24 DC Propofol (Diprivan) 200 mg STK-MED ONCE IV 06/03/18 17:22 06/03/18 17:24 DC Cefazolin Sodium (Ancef) 1 gm STK-MED ONCE .ROUTE 06/03/18 17:46 06/03/18 17:47 DC Sodium Chloride 250 ml @ ud STK-MED ONCE IV 06/03/18 17:46 06/03/18 17:47 DC Fentanyl Citrate (Sublimaze) 25 mcg Q5MIN PRN IV PAIN 06/03/18 19:30 06/03/18 22:40 DC Ondansetron HCl (Zofran) 4 mg PRN PRN IV nv 06/03/18 19:30 06/03/18 22:43 DC Diphenhydramine HCl (Benadryl) 25 mg Q5MIN PRN IV NAUSEA / VOMITING 06/03/18 19:30 06/03/18 22:34 DC Albuterol Sulfate (Ventolin) 2.5 mg OT PRN IH WHEEZING 06/03/18 19:30 06/03/18 22:42 DC Tramadol HCl (Ultram) 50 mg Q6H PRN PO MILD PAIN 06/03/18 19:30 07/03/18 19:29 Tramadol HCl (Ultram) 100 mg Q6H PRN PO SEVERE PAIN 06/03/18 19:30 07/03/18 19:29 06/04/18 06:22 Docusate Sodium (Colace) 100 mg DAILY PO 06/04/18 09:00 07/04/18 08:59 06/04/18 08:21 Throat Lozenges (Cepacol Sore Throat Lozenge) 1 each PRN PRN MM SORE THROAT 06/03/18 19:30 07/03/18 19:29 Famotidine (Pepcid) 20 mg DAILY PO 06/04/18 09:00 07/04/18 08:59 06/04/18 08:22 Cefazolin Sodium/ Dextrose (Ancef 2 Gm/D5W 50ml) 2 gm Q8 IV 06/03/18 22:00 06/04/18 14:01 06/04/18 06:21 Meperidine HCl (Demerol) 50 mg Q4HR PRN IV PAIN 06/03/18 19:30 07/03/18 19:29 06/03/18 20:01 Ondansetron HCl (Zofran) 4 mg Q4H PRN IV NAUSEA / VOMITING 06/03/18 19:30 07/03/18 19:29 Carbidopa/Levodopa (Sinemet 25/100) 1 each TID PO 06/03/18 21:00 07/03/18 20:59 06/04/18 08:21 Carvedilol (Coreg) 6.25 mg BID PO 06/03/18 21:00 07/03/18 20:59 Clonazepam (Klonopin) 0.5 mg TID PO 06/03/18 21:00 07/03/18 20:59 06/04/18 08:22 Digoxin (Lanoxin) 125 mcg DAILY PO 06/04/18 09:00 07/04/18 08:59 06/04/18 08:21 Pantoprazole Sodium (Protonix) 40 mg BID PO 06/03/18 21:00 07/03/18 20:59 06/04/18 08:22 Paroxetine HCl (Paxil) 20 mg HS PO 06/03/18 21:00 07/03/18 20:59 06/03/18 20:59 Simvastatin (Zocor) 20 mg HS PO 06/03/18 21:00 07/03/18 20:59 06/04/18 00:00 Metformin HCl (Glucophage Xr) 500 mg DAILY PO 06/04/18 09:00 07/04/18 08:59 Sodium Chloride 0 ml @ 999 mls/hr Q0M STAT IV 06/03/18 20:48 06/03/18 22:39 DC 06/03/18 20:48 Metoprolol Succinate (Toprol Xl) 25 mg STAT STAT PO 06/03/18 20:48 06/03/18 22:40 DC 06/03/18 21:05 Metoprolol Tartrate (Lopresser) 25 mg STK-MED ONCE .ROUTE 06/03/18 20:57 06/03/18 20:59 DC Cefazolin Sodium (Ancef) 1 gm STK-MED ONCE .ROUTE 06/03/18 23:49 06/03/18 23:51 DC Sodium Chloride 100 ml @ ud STK-MED ONCE IV 06/03/18 23:50 06/03/18 23:51 DC Cefazolin Sodium (Ancef) 1 gm STK-MED ONCE .ROUTE 06/04/18 06:15 06/04/18 06:16 DC Sodium Chloride 100 ml @ ud STK-MED ONCE IV 06/04/18 06:15 06/04/18 06:17 DC Course Sepsis Screening Results: Posi: NEGATIVE Sepsis Qualifier/Stage: NO DEFINITE RISK Duration or Total Time Spent w: 60 mins Vitals & review Data Vital Sign - Last 24 Hours 06/03/18 06/03/18 06/03/18 06/03/18 14:09 14:14 14:18 14:23 Temp 98.9 98.9 98.9 98.9 Pulse 88 89 88 Resp 14 14 B/P (MAP) 115/52 (73) 84/36 (52) Pulse Ox 94 94 O2 Delivery Room Air Room Air 06/03/18 06/03/18 06/03/18 06/03/18 14:29 14:31 14:44 14:59 Pulse 85 81 82 B/P (MAP) 93/51 (65) Pulse Ox 96 88 92 06/03/18 06/03/18 06/03/18 06/03/18 15:14 15:27 15:29 15:48 Pulse 88 89 B/P (MAP) 105/61 (76) 156/90 (112) Pulse Ox 94 95 06/03/18 06/03/18 06/03/18 06/03/18 15:59 16:04 16:14 16:19 Pulse 92 97 B/P (MAP) 134/73 (93) 148/42 (77) 06/03/18 06/03/18 06/03/18 06/03/18 16:29 16:34 16:44 16:49 Pulse 82 99 B/P (MAP) 151/71 (97) 156/99 (118) 06/03/18 06/03/18 06/03/18 06/03/18 16:59 17:04 17:14 18:00 Temp 98.6 98.6 Pulse 92 87 109 Resp 14 B/P (MAP) 134/70 (91) 104/39 06/03/18 06/03/18 06/03/18 06/03/18 18:15 18:20 18:55 19:08 Temp 99.0 98.3 100.6 99.8 99.0 98.3 100.6 99.8 Pulse 70 108 122 90 Resp 14 14 18 18 B/P (MAP) 91/62 105/68 87/49 (62) 118/61 (80) Pulse Ox 97 95 O2 Delivery Non-Rebreather Room Air O2 Flow Rate 10 06/03/18 06/03/18 06/03/18 06/03/18 19:25 21:49 22:55 22:56 Temp 99.5 99.5 Pulse 92 80 Resp 18 18 16 B/P (MAP) 121/60 (80) Pulse Ox 97 97 97 O2 Delivery Room Air Nasal Cannula CPAP FiO2 30 06/03/18 06/03/18 06/04/18 06/04/18 22:56 23:40 01:27 04:30 Temp 97.8 97.8 Pulse 80 88 76 Resp 16 18 19 B/P (MAP) 107/63 (78) Pulse Ox 98 97 95 O2 Delivery C-Pap C-Pap C Pap CPAP FiO2 30 30 06/04/18 06/04/18 06/04/18 06/04/18 04:47 07:42 08:23 08:26 Temp 97.4 98.3 97.4 98.3 Pulse 68 72 72 Resp 30 20 B/P (MAP) 104/64 (77) 98/59 (72) 98/59 Pulse Ox 97 O2 Delivery C Pap Room Air Nasal Cannula O2 Flow Rate 2.00 06/04/18 06/04/18 06/04/18 10:01 10:15 11:56 Temp 98.1 98.1 Pulse 69 71 Resp 16 20 B/P (MAP) 100/53 (69) Pulse Ox 98 98 O2 Delivery Nasal Cannula Nasal Cannula O2 Flow Rate 2.00 2.00 FiO2 28 Intake and Output 06/03/18 06/03/18 06/04/18 15:00 23:00 07:00 Intake Total 9000 ml 200 ml Output Total 275 ml Balance 9000 ml -75 ml Laboratory Tests Test 06/03/18 14:40 06/04/18 05:26 White Blood Count 9.2 10^3/uL 9.7 10^3/uL Red Blood Count 3.48 10^6/uL 2.78 10^6/uL Hemoglobin 10.8 g/dL 8.5 g/dL Hematocrit 33.2 % 27.0 % Mean Corpuscular Volume 95.4 fL 97.1 fL Mean Corpuscular Hemoglobin 31.0 pg 30.6 pg Mean Corpuscular Hemoglobin Concent 32.5 g/dL 31.5 g/dL Red Cell Distribution Width 17.2 % 17.1 % Platelet Count 165 10^3/uL 145 10^3/uL Mean Platelet Volume 10.2 fL 10.4 fL Neutrophils (%) (Auto) 76.0 % Lymphocytes (%) (Auto) 12.2 % Monocytes (%) (Auto) 10.5 % Neutrophils # (Auto) 7.0 10^3/uL Lymphocytes # (Auto) 1.1 10^3/uL Monocytes # (Auto) 1.0 10^3/uL Absolute Immature Granulocyte (auto 0.01 10^3 u/L Eosinophils % 1.0 % Basophils % 0.2 % Basophils # 0.0 10^3/uL Eosinophil Count 0.1 10^3/uL Prothrombin Time 22.2 SEC Prothrombin Time INR (Non-Therap) 2.3 Activated Partial Thromboplast Time 37.4 SEC Sodium Level 141 mmol/L Potassium Level 4.3 mmol/L Chloride Level 105.0 mmol/L Carbon Dioxide Level 27.5 mmol/L Anion Gap 12.8 Blood Urea Nitrogen 25 mg/dL Creatinine 1.53 mg/dL Estimated GFR () 53.4 BUN/Creatinine Ratio 16.0 Glucose Level 125 mg/dL Calcium Level 8.6 mg/dL Total Bilirubin 0.9 mg/dL Aspartate Amino Transf (AST/SGOT) 60 U/L Alanine Aminotransferase (ALT/SGPT) 12 U/L Alkaline Phosphatase 58 U/L Total Protein 6.7 g/dL Albumin 3.5 g/dL Globulin 3.2 Percent Immature Gran (Cell Imm) 0.10 % Current Medications Medications (Trade) Dose Ordered Sig/Feliz PRN Reason Start Time Stop Time Status Last Admin Carbidopa/Levodopa (Sinemet 25/100) 1 each TID 06/03/18 21:00 07/03/18 20:59 06/04/18 08:21 Carvedilol (Coreg) 6.25 mg BID 06/03/18 21:00 07/03/18 20:59 Cefazolin Sodium/ Dextrose (Ancef 2 Gm/D5W 50ml) 2 gm Q8 06/03/18 22:00 06/04/18 14:01 06/04/18 06:21 Clonazepam (Klonopin) 0.5 mg TID 06/03/18 21:00 07/03/18 20:59 06/04/18 08:22 Digoxin (Lanoxin) 125 mcg DAILY 06/04/18 09:00 07/04/18 08:59 06/04/18 08:21 Docusate Sodium (Colace) 100 mg DAILY 06/04/18 09:00 07/04/18 08:59 06/04/18 08:21 Famotidine (Pepcid) 20 mg DAILY 06/04/18 09:00 07/04/18 08:59 06/04/18 08:22 Meperidine HCl (Demerol) 50 mg Q4HR PRN PAIN 06/03/18 19:30 07/03/18 19:29 06/03/18 20:01 Metformin HCl (Glucophage Xr) 500 mg DAILY 06/04/18 09:00 07/04/18 08:59 Ondansetron HCl (Zofran) 4 mg Q4H PRN NAUSEA / VOMITING 06/03/18 19:30 07/03/18 19:29 Pantoprazole Sodium (Protonix) 40 mg BID 06/03/18 21:00 07/03/18 20:59 06/04/18 08:22 Paroxetine HCl (Paxil) 20 mg HS 06/03/18 21:00 07/03/18 20:59 06/03/18 20:59 Simvastatin (Zocor) 20 mg HS 06/03/18 21:00 07/03/18 20:59 06/04/18 00:00 Throat Lozenges (Cepacol Sore Throat Lozenge) 1 each PRN PRN SORE THROAT 06/03/18 19:30 07/03/18 19:29 Tramadol HCl (Ultram) 50 mg Q6H PRN MILD PAIN 06/03/18 19:30 07/03/18 19:29 Tramadol HCl (Ultram) 100 mg Q6H PRN SEVERE PAIN 06/03/18 19:30 07/03/18 19:29 06/04/18 06:22 Sepsis Infection Criteria Pres: None LEVEL 1 SEPSIS INFECTION CRITE: None/Not assessed LEVEL 2-SIRS (LIST ALL THAT AP: HR>90/min Cardiovascular Evidence: Not Assessed or None Hematologic Evidence: None/Not assessed Hepatic Evidence: None/Not assessed Metabolic Evidence: None/Not assessed Neurological Evidence: None/Not assessed Respiratory Evidence: Need for O2 to keep>90%, O2 SAT<90room air Renal Evidence: None/Not assessed O2 Sat by Pulse Oximetry: 98 Oxygen Flow Rate: 2.00 ARACELI HUMPHREY MD Jun 04, 2018 12:43
[2018-06-04] MEDS: ANCEF 1 GM in NS 100ML 100 ML IV SCH ×2 (15:14→21:23)
--- NOTE | 2018-06-04 16:01 | CNH ---
DATE OF CONSULTATION: 06/03/2018 INTERNAL MEDICINE CONSULTATION ATTENDING PHYSICIAN: Oseas Calle M.D. REASON FOR CONSULTATION: Medical management. HISTORY OF PRESENT ILLNESS: This is a very pleasant 77-year-old male with a past medical history significant for multiple medical problems including end-stage Parkinson's disease who presents to the Emergency Department with severe pain and swelling of the left lower extremity. The patient most recently fell approximately 5 days ago at home, twisting his ankle and getting a small puncture wound on the lower left leg. He was having significant swelling and pain secondary to this, and he proceeded to the Emergency Room in [facility] where he was advised to be on antibiotics and to keep his leg elevated. The patient's pain and swelling continued to worsen over the next 48 hours to the point that his leg was severely hard to the touch, and he began having a loss of sensation in the leg as well as the inability to move his foot and toes. On presentation to the Emergency Department, he was found to have probable compartment syndrome as well as a large hematoma and was taken to the operating room for fasciotomy and evacuation of the hematoma early this morning. The patient is currently postop and doing very well, alert and comfortable with significant improvement in the range of motion of his foot and toes. He still does not have sensation in his toes, however. The patient has Parkinson's disease and over the last several weeks has been having multiple falls. The patient has a shuffling gait and this is causing him to trip extensively at home. He has hit his head multiple times and has injured his right hip and right knee several times as well. He was taken to the hospital at [facility] [place] in [place], [place], several weeks ago after one of these falls and he was found to be in atrial fibrillation. His musculoskeletal system was evaluated, and he was found to not have any fractures, although he was in rapid ventricular response and was kept in the hospital for 2 days to get control of this. He was placed on warfarin at that time and has been taking it faithfully up until the last 4 to 5 days. He was seen in the [facility] where his INR was slightly elevated according to the family, and he was instructed to hold his Coumadin at that time. The patient's family states that he is having significant bruising frequently since being on Coumadin, especially with his falls. PAST MEDICAL HISTORY: 1. Chronic systolic congestive heart failure. 2. Coronary artery disease with stent placement. 3. Atrial fibrillation. 4. Chronic anticoagulation. 5. End-stage Parkinson's disease. 6. Hypertension. 7. Diabetes mellitus type 2. 8. Osteoarthritis. 9. Degenerative joint disease. 10. Gait disturbance. MEDICATIONS: See admit medication reconciliation form. ALLERGIES: CODEINE AND MORPHINE. PAST SURGICAL HISTORY: 1. Bilateral knee replacement. 2. Pacemaker and ICD placement. 3. Placement of stent 4 or 5 years ago. SOCIAL HISTORY: Alcohol, tobacco, or recreational drug, none. The patient lives with his in [place], [place]. He is retired, but still somewhat active. FAMILY HISTORY: Multiple family members positive for diabetes and hypertension. REVIEW OF SYSTEMS: GENERAL: Overall positive for weakness and fatigue over the last several weeks. CARDIAC: Denies chest pain, orthopnea, PND or palpitations. RESPIRATORY: Denies shortness of breath, cough or congestion. No hemoptysis. No history of TB. GASTROINTESTINAL: No nausea, vomiting, diarrhea, or constipation. No history of hepatitis. GENITOURINARY: Denies dysuria, frequency, hematuria or nocturia. No incontinence. HEMATOLOGIC: Positive for easy bleeding and easy bruising as above, especially since being on warfarin. ENDOCRINE: No recent weight loss or weight gain. No temperature intolerance. NEUROLOGIC: Denies headache, paresthesias or dizziness. He has a significant tremor and shuffling gait from his Parkinson's disease. MUSCULOSKELETAL: Pain in the left lower extremity as noted above. PSYCHIATRIC: Denies depression or anxiety. SKIN: No complaints. OBJECTIVE: PHYSICAL EXAMINATION: VITAL SIGNS: Temperature 98.9, pulse 88, respirations 14, O2 sat 94% on room air, and blood pressure 115/52. GENERAL: This is a well-appearing male in no acute distress. He is lying in bed, postop day 0. HEENT: Atraumatic, normocephalic. Sclerae are clear and anicteric. Oral mucosa is moist. NECK: Soft, supple. Normal range of motion. No bruits, goiter, mass or adenopathy. There is no JVD. LUNGS: Clear to auscultation bilaterally. HEART: Irregularly irregular rhythm without murmurs, S3 or S4. ABDOMEN: Soft, nontender, nondistended. Positive bowel sounds. No masses felt. EXTREMITIES: The right lower extremity warm and well perfused without edema, cyanosis, or clubbing. The left lower extremity is wrapped from the knee to the end of the foot with his postop dressing. Unable to evaluate for edema in the lower leg. Leg is nontender. He does have good movement in the toes. He cannot feel his toes, however. I am unable to evaluate his pulses at this time. Cranial nerves 2 through 12 are grossly intact and symmetric. SKIN: Intact. LABORATORY DATA: White blood cell count 9.2, hemoglobin 10.8, hematocrit 33.2, and platelets 165. Sodium 141, potassium 4.3, chloride 105, BUN 25, creatinine 1.53, glucose 125. Calcium 8.6, total bilirubin 0.9, AST 60, ALT 12. PT 22.2, INR 2.3. CT abdomen and pelvis -- "no evidence of acute bony or joint abnormality. Abnormal high density soft tissue in the lateral space suggesting hematoma." ASSESSMENT: 1. Left lower leg compartment syndrome. 2. Left lower leg hematoma. 3. Paroxysmal atrial fibrillation. 4. Acute renal insufficiency. 5. Elevated INR secondary to Coumadin use. 6. Diabetes mellitus with hyperglycemia. 7. Chronic systolic congestive heart failure. 8. End-stage Parkinson's disease. PLAN: The patient is admitted to [facility] Med/Surg floor postoperatively. He went this morning at approximately 1:00 a.m. for full compartment fasciotomy of the left lower leg as well as I and D of large hematoma over the anterolateral aspect of the left lower leg. He is doing very well postoperatively. We will defer management to Dr. Calle. Unclear if he will need wound care as an outpatient, but depending on this, he may benefit from [facility] facility versus long-term acute care. He desperately needs physical therapy to try to aid in his gait disturbance. He shuffling gait from Parkinson's is progressing and it is placing him at severely high risk of more falls. The patient's INR was appropriately elevated from warfarin use on arrival. He was given vitamin K preoperatively. He is on warfarin for atrial fibrillation and stroke prevention. In terms of a risk-benefit ratio, in my opinion it is severely risky for him to remain on blood thinners in the future because of his very high fall risk, multiple recent falls, recent head trauma from falls, and now recent hematoma from a fall. Unfortunately, he is going to be at a higher risk of fall in the future secondary to his Parkinson's as well as age and deconditioning. His risk of stroke is only approximately 7% per year if he is not on anticoagulation and in my opinion it is just not worth the risk. I will try and discuss this with his PCP tomorrow and get his thoughts as well, but the family is leaning towards him not being on anticoagulation as well. Continue IV fluids postoperatively, and we will reevaluate renal function in a.m. Follow heart rate on telemetry and adjust beta shivam as needed for paroxysmal tachycardia. Resume other cardiac medications and home medications. Thank you very much for the opportunity to follow this very pleasant patient. I will be happy to continue to follow with you and make recommendations as needed. Naveed Simon MD DR: MONIKA/gabby JOB# [id number] CC: Oseas Calle MD
[2018-06-04 20:27] VITALS: BP 98/77
[2018-06-04] MEDS: ZOCOR PO SCH ×2 (21:24)
[2018-06-04] MEDS: PAXIL PO SCH (21:24)
[2018-06-05] VITALS (39 sets, daily range): BP systolic 83–148; BP diastolic 42–91
[2018-06-05 05:11] LABS: HEMOGLOBIN 7.3 g/dL (13.9-16.3); MEAN CELL HGB 30.4 pg (26-34); MEAN CELL HGB CONCENTRATION 30.9 g/dL (33-37); MEAN CORP VOLUME 98.3 fL (78-100); MEAN PLATELET VOLUME 10.1 fL (7.8-11.0); RED CELL DISTRIBUTION WIDTH 17.1 % (11.5-14.5); WHITE BLOOD CELL 6.9 10^3/uL (4.5-11.0)
[2018-06-05 05:54] LABS: CARBON DIOXIDE 28.3 mmol/L (20.0-32)
[2018-06-05] MEDS: ANCEF 1 GM in NS 100ML 100 ML IV SCH ×2 (05:57→17:10)
[2018-06-05] MEDS: COLACE PO SCH (08:36)
[2018-06-05] MEDS: SINEMET 25/100 PO SCH ×3 (08:36→21:06)
[2018-06-05] MEDS: KLONOPIN PO SCH ×3 (08:36→21:06)
[2018-06-05] MEDS: COREG PO SCH ×2 (08:36→21:08)
[2018-06-05] MEDS: LANOXIN PO SCH (08:37)
[2018-06-05] MEDS: PROTONIX PO SCH ×2 (08:37→21:06)
[2018-06-05] MEDS: GLUCOPHAGE XR PO SCH (08:37)
[2018-06-05] MEDS: PEPCID PO SCH (08:37)
[2018-06-05] MEDS ORDERED: LASIX IV ONE (09:30)
[2018-06-05] MEDS ORDERED: NS 250ML 250 ML IV ONE ×2 (10:13→14:03)
--- NOTE | 2018-06-05 10:47 | PCM.EKG ---
[facility] [place], [place] Test Date: 2018-06-05 Test Time: 10:45:24 Pat Name: MAGEN KWOK Department: Room: ICU3 Gender: M Light Adjuster: DF : 1940 Requested By: LONG ORTEGA Order Number: [id number] Reading MD: Ruben Gonzalez Measurements Intervals [place] Rate: 104 P: ND: QRS: -36 QRSD: 176 T: 117 QT: 432 QTc: 568 Interpretive Statements Atrial fibrillation with frequent Left axis deviation Left bundle branch block Abnormal ECG Compared to ECG 06/03/2018 20:39:53 No significant changes Electronically Signed On 06-06-2018 10:04:13 [employer]AMINER by Ruben Gonzalez Please click the below link to view image of tracing.
[2018-06-05] MEDS: ULTRAM PO PRN (11:43)
[2018-06-05 12:40] LABS: ABG PH 7.429 (7.350-7.450); BE(B) 2.6 mmol/L (-2.0-2.0); HCO3act 27.2 mmol/L (22.0-26.0); pO2 99.5 mmHg (75.0-100.0)
[2018-06-05] MEDS ORDERED: LASIX ONE (14:08)
[2018-06-05] MEDS ORDERED: LANOXIN IV STA (15:29)
[2018-06-05] MEDS ORDERED: NEXTERONE IV ONE (15:30)
[2018-06-05] MEDS ORDERED: NS 100ML 100 ML IV ONE (15:37)
--- NOTE | 2018-06-05 16:01 | DIREP ---
PROCEDURE:CHEST 2 VIEWS COMPARISON:[facility], CR, XRAY CHEST SINGLE VW, 04/30/2018, 05:06 AM. [facility], CR, XRAY CHEST SINGLE VW, 11/01/2016, 10:21 AM. [facility], CR, XRAY CHEST 2 VWS, 10/27/2016, 04:07 PM. INDICATIONS:chf FINDINGS: LUNGS/PLEURA:No significant pulmonary parenchymal abnormalities. No effusions. VASCULATURE:Normal. Unremarkable pulmonary vasculature. CARDIAC:Mild cardiomegaly. Left pacemaker. MEDIASTINUM:Normal. No visible mass or adenopathy. BONES:Normal. No fracture or visible bony lesion. OTHER:EKG leads overlie the chest. CONCLUSION:Mild cardiomegaly. No acute cardiopulmonary abnormalities. Dictated by: Howard Barrett M.D. on 06/05/2018 at 03:58 PM
[2018-06-05] MEDS ORDERED: LANOXIN ONE (16:38)
[2018-06-05] MEDS ORDERED: NS 1000ML/KCL 20MEQ 1,000 ML IV ONE (16:39)
[2018-06-05] MEDS: NEXTERONE 360 MG/200 ML BAG 200 ML IV SCH ×2 (17:06→22:32)
[2018-06-05] MEDS: NS 1000ML/KCL 20MEQ 1,000 ML IV SCH (17:10)
--- NOTE | 2018-06-05 17:27 | PRM.PN ---
Subjective Subjective Date: Jun 05, 2018 Time: 17:24 Subjective No significant events overnight. Pain under control but slightly worse than yesterday. Moving foot and toes well, although this brings on most of his pain. Weak overall and tries to get up alone. 3/4 In ICU because of AFIB HGB 7.3 postop anemia from surgical blood loss expected Dr Simon and Dr Rocha managing medical issues Pt appears comfortable and in no distress Plan repeat I&D once stable medically Patient History: No known health problems 32 MOTHER, , Age:87 19 CHILD 19 CHILD, , Age:27 19 CHILD, , Age:54 Parkinson's disease G8 BROTHER, , Age:81 No Family History of: Alzheimer's disease Asthma Cerebrovascular disorder Chronic obstructive pulmonary disease Congestive heart failure Diabetes insipidus Diabetes mellitus Hypertension VTE VTE Risk Total Score: 3 VTE Risk Score VTE Risk: Score 0-1 = Low Risk (Aggressive mobilization; early ambulation; no VTE prophylaxis required) Score 2: Moderate Risk (Intermittent/Pneumatic Compression Device OR Lovenox/Heparin/Coumadin) Score 3-4: High Risk (Intermittent/Pneumatic Compression Device AND Lovenox/Heparin/Coumadin) Score > or =5: Highest Risk (Intermittent/Pneumatic Compression Device AND Lovenox/Heparin/Coumadin) Review of Systems Constitutional: Weakness; No: Fever, Chills, Sweats, Malaise, Other Respiratory: No: Cough, Dry, Shortness of breath, SOB with excertion, Wheezing , Hemoptysis, Pleuritic Pain, Sputum, Wheezing, Other Cardiovascular: No: Chest Pain, Palpitations, Orthopnea, Paroxysmal Noc. Dyspnea, Edema, Lt Headedness, Other Gastrointestinal: No: Nausea, Vomiting, Abdominal Pain, Diarrhea, Constipation , Melena, Hematochezia, Other Musculoskeletal: leg pain, foot pain Neurological: Weakness; No: Numbness, Incoordination, Change in speech, Confusion, Seizures, Other Allergies: Coded Allergies: morphine (Verified Allergy, Severe, HALLUCINATIONS, 10/27/16) codeine (Verified Allergy, Intermediate, 06/03/18) Scheduled Aspirin (Aspir 81), 1 TAB PO DAILY, (Reported) Carbidopa/Levodopa (Sinemet 25-100 Mg Tablet), 1 TAB PO TID, (Reported) Carvedilol 6.25MG (Coreg 6.25MG), 1 TAB PO BID, (Reported) Clonazepam (Clonazepam), 1 TAB PO TID, (Reported) Digoxin (Digitek), 125 MCG PO DAILY, (Reported) Metformin Hcl (Metformin Hcl Er), 1 TAB PO DAILY, (Reported) Pantoprazole Sodium (Protonix), 1 TAB PO BID, (Reported) Paroxetine Hcl (Paroxetine Hcl), 1 TAB PO HS, (Reported) Simvastatin (Simvastatin), 1 TAB PO HS, (Reported) Warfarin Sodium (Warfarin Sodium), 1 TAB PO DAILY, (Reported) Warfarin Sodium (Warfarin Sodium), 0.5 TAB PO DAILY, (Reported) Scheduled PRN Acetaminophen With Codeine (Tylenol With Codeine #4 Tablet), 1-2 EACH PO Q4 PRN for PAIN Objective Vitals and I/O Vital Sign - Last 24 Hours 06/03/18 06/03/18 06/03/18 06/03/18 14:09 14:14 14:18 14:23 Temp 98.9 98.9 98.9 98.9 Pulse 88 89 88 Resp 14 14 B/P (MAP) 115/52 (73) 84/36 (52) Pulse Ox 94 94 O2 Delivery Room Air Room Air 06/03/18 06/03/18 06/03/18 06/03/18 14:29 14:31 14:44 14:59 Pulse 85 81 82 B/P (MAP) 93/51 (65) Pulse Ox 96 88 92 06/03/18 06/03/18 06/03/18 06/03/18 15:14 15:27 15:29 15:48 Pulse 88 89 B/P (MAP) 105/61 (76) 156/90 (112) Pulse Ox 94 95 06/03/18 06/03/18 06/03/18 06/03/18 15:59 16:04 16:14 16:19 Pulse 92 97 B/P (MAP) 134/73 (93) 148/42 (77) 06/03/18 06/03/18 06/03/18 06/03/18 16:29 16:34 16:44 16:49 Pulse 82 99 B/P (MAP) 151/71 (97) 156/99 (118) 06/03/18 06/03/18 06/03/18 06/03/18 16:59 17:04 17:14 18:00 Temp 98.6 98.6 Pulse 92 87 109 Resp 14 B/P (MAP) 134/70 (91) 104/39 06/03/18 06/03/18 06/03/18 06/03/18 18:15 18:20 18:55 19:08 Temp 99.0 98.3 100.6 99.8 99.0 98.3 100.6 99.8 Pulse 70 108 122 90 Resp 14 14 18 18 B/P (MAP) 91/62 105/68 87/49 (62) 118/61 (80) Pulse Ox 97 95 O2 Delivery Non-Rebreather Room Air O2 Flow Rate 10 06/03/18 06/03/18 06/03/18 06/03/18 19:25 21:49 22:55 22:56 Temp 99.5 99.5 Pulse 92 80 Resp 18 18 16 B/P (MAP) 121/60 (80) Pulse Ox 97 97 97 O2 Delivery Room Air Nasal Cannula CPAP FiO2 30 06/03/18 06/03/18 06/04/18 06/04/18 22:56 23:40 01:27 04:30 Temp 97.8 97.8 Pulse 80 88 76 Resp 16 18 19 B/P (MAP) 107/63 (78) Pulse Ox 98 97 95 O2 Delivery C-Pap C-Pap C Pap CPAP FiO2 30 30 06/04/18 06/04/18 06/04/18 06/04/18 04:47 07:42 08:23 08:26 Temp 97.4 98.3 97.4 98.3 Pulse 68 72 72 Resp 30 20 B/P (MAP) 104/64 (77) 98/59 (72) 98/59 Pulse Ox 97 O2 Delivery C Pap Room Air Nasal Cannula O2 Flow Rate 2.00 06/04/18 06/04/18 06/04/18 10:01 10:15 11:56 Temp 98.1 98.1 Pulse 69 71 Resp 16 20 B/P (MAP) 100/53 (69) Pulse Ox 98 98 O2 Delivery Nasal Cannula Nasal Cannula O2 Flow Rate 2.00 2.00 FiO2 28 Intake and Output 06/03/18 06/03/18 06/04/18 15:00 23:00 07:00 Intake Total 9000 ml 200 ml Output Total 275 ml Balance 9000 ml -75 ml General: Alert, Oriented X3, Cooperative, No acute distress Neck: Supple, No JVD Lungs: Clear to auscultation Heart: Regular rate, Normal S1, Normal S2, No murmurs Abdomen: Normal bowel sounds, Soft, No tenderness, No masses Extremities: Other (L LE wrapped, cleand dressed and dry.) Neuro: Normal gait, Normal speech, Strength at 5/5 X4 ext, Normal tone, Sensation intact, Other (Moderate to severe resting parkinsonian tremor on RUE.) All Results(Lab/Rad) Laboratory Tests Test 06/03/18 14:40 06/04/18 05:26 White Blood Count 9.2 10^3/uL 9.7 10^3/uL Red Blood Count 3.48 10^6/uL 2.78 10^6/uL Hemoglobin 10.8 g/dL 8.5 g/dL Hematocrit 33.2 % 27.0 % Mean Corpuscular Volume 95.4 fL 97.1 fL Mean Corpuscular Hemoglobin 31.0 pg 30.6 pg Mean Corpuscular Hemoglobin Concent 32.5 g/dL 31.5 g/dL Red Cell Distribution Width 17.2 % 17.1 % Platelet Count 165 10^3/uL 145 10^3/uL Mean Platelet Volume 10.2 fL 10.4 fL Neutrophils (%) (Auto) 76.0 % Lymphocytes (%) (Auto) 12.2 % Monocytes (%) (Auto) 10.5 % Neutrophils # (Auto) 7.0 10^3/uL Lymphocytes # (Auto) 1.1 10^3/uL Monocytes # (Auto) 1.0 10^3/uL Absolute Immature Granulocyte (auto 0.01 10^3 u/L Eosinophils % 1.0 % Basophils % 0.2 % Basophils # 0.0 10^3/uL Eosinophil Count 0.1 10^3/uL Prothrombin Time 22.2 SEC Prothrombin Time INR (Non-Therap) 2.3 Activated Partial Thromboplast Time 37.4 SEC Sodium Level 141 mmol/L Potassium Level 4.3 mmol/L Chloride Level 105.0 mmol/L Carbon Dioxide Level 27.5 mmol/L Anion Gap 12.8 Blood Urea Nitrogen 25 mg/dL Creatinine 1.53 mg/dL Estimated GFR () 53.4 BUN/Creatinine Ratio 16.0 Glucose Level 125 mg/dL Calcium Level 8.6 mg/dL Total Bilirubin 0.9 mg/dL Aspartate Amino Transf (AST/SGOT) 60 U/L Alanine Aminotransferase (ALT/SGPT) 12 U/L Alkaline Phosphatase 58 U/L Total Protein 6.7 g/dL Albumin 3.5 g/dL Globulin 3.2 Percent Immature Gran (Cell Imm) 0.10 % Current Medications Medications (Trade) Dose Ordered Sig/Feliz Route PRN Reason Start Time Stop Time Status Last Admin Dose Admin Sodium Chloride 1,000 ml @ 1,200 mls/hr Q50M STAT IV 06/03/18 14:38 06/03/18 15:27 DC 06/03/18 14:53 Sodium Chloride (Sodium Chloride) 1,000 ml STK-MED ONCE IR 06/03/18 17:05 06/03/18 17:07 DC Sodium Chloride 1,000 ml @ ud STK-MED ONCE .ROUTE 06/03/18 17:21 06/03/18 17:23 DC Sodium Chloride 100 ml @ ud STK-MED ONCE IV 06/03/18 17:22 06/03/18 17:23 DC Dexamethasone Sodium Phosphate (Decadron) 4 mg STK-MED ONCE .ROUTE 06/03/18 17:22 06/03/18 17:23 DC Ondansetron HCl (Zofran) 4 mg STK-MED ONCE .ROUTE 06/03/18 17:22 06/03/18 17:23 DC Etomidate (Amidate) 40 mg STK-MED ONCE IV 06/03/18 17:22 06/03/18 17:23 DC Fentanyl Citrate (Sublimaze) 100 mcg STK-MED ONCE .ROUTE 06/03/18 17:22 06/03/18 17:24 DC Propofol (Diprivan) 200 mg STK-MED ONCE IV 06/03/18 17:22 06/03/18 17:24 DC Cefazolin Sodium (Ancef) 1 gm STK-MED ONCE .ROUTE 06/03/18 17:46 06/03/18 17:47 DC Sodium Chloride 250 ml @ ud STK-MED ONCE IV 06/03/18 17:46 06/03/18 17:47 DC Fentanyl Citrate (Sublimaze) 25 mcg Q5MIN PRN IV PAIN 06/03/18 19:30 06/03/18 22:40 DC Ondansetron HCl (Zofran) 4 mg PRN PRN IV nv 06/03/18 19:30 06/03/18 22:43 DC Diphenhydramine HCl (Benadryl) 25 mg Q5MIN PRN IV NAUSEA / VOMITING 06/03/18 19:30 06/03/18 22:34 DC Albuterol Sulfate (Ventolin) 2.5 mg OT PRN IH WHEEZING 06/03/18 19:30 06/03/18 22:42 DC Tramadol HCl (Ultram) 50 mg Q6H PRN PO MILD PAIN 06/03/18 19:30 07/03/18 19:29 Tramadol HCl (Ultram) 100 mg Q6H PRN PO SEVERE PAIN 06/03/18 19:30 07/03/18 19:29 06/04/18 06:22 Docusate Sodium (Colace) 100 mg DAILY PO 06/04/18 09:00 07/04/18 08:59 06/04/18 08:21 Throat Lozenges (Cepacol Sore Throat Lozenge) 1 each PRN PRN MM SORE THROAT 06/03/18 19:30 07/03/18 19:29 Famotidine (Pepcid) 20 mg DAILY PO 06/04/18 09:00 07/04/18 08:59 06/04/18 08:22 Cefazolin Sodium/ Dextrose (Ancef 2 Gm/D5W 50ml) 2 gm Q8 IV 06/03/18 22:00 06/04/18 14:01 06/04/18 06:21 Meperidine HCl (Demerol) 50 mg Q4HR PRN IV PAIN 06/03/18 19:30 07/03/18 19:29 06/03/18 20:01 Ondansetron HCl (Zofran) 4 mg Q4H PRN IV NAUSEA / VOMITING 06/03/18 19:30 07/03/18 19:29 Carbidopa/Levodopa (Sinemet 25/100) 1 each TID PO 06/03/18 21:00 07/03/18 20:59 06/04/18 08:21 Carvedilol (Coreg) 6.25 mg BID PO 06/03/18 21:00 07/03/18 20:59 Clonazepam (Klonopin) 0.5 mg TID PO 06/03/18 21:00 07/03/18 20:59 06/04/18 08:22 Digoxin (Lanoxin) 125 mcg DAILY PO 06/04/18 09:00 07/04/18 08:59 06/04/18 08:21 Pantoprazole Sodium (Protonix) 40 mg BID PO 06/03/18 21:00 07/03/18 20:59 06/04/18 08:22 Paroxetine HCl (Paxil) 20 mg HS PO 06/03/18 21:00 07/03/18 20:59 06/03/18 20:59 Simvastatin (Zocor) 20 mg HS PO 06/03/18 21:00 07/03/18 20:59 06/04/18 00:00 Metformin HCl (Glucophage Xr) 500 mg DAILY PO 06/04/18 09:00 07/04/18 08:59 Sodium Chloride 0 ml @ 999 mls/hr Q0M STAT IV 06/03/18 20:48 06/03/18 22:39 DC 06/03/18 20:48 Metoprolol Succinate (Toprol Xl) 25 mg STAT STAT PO 06/03/18 20:48 06/03/18 22:40 DC 06/03/18 21:05 Metoprolol Tartrate (Lopresser) 25 mg STK-MED ONCE .ROUTE 06/03/18 20:57 06/03/18 20:59 DC Cefazolin Sodium (Ancef) 1 gm STK-MED ONCE .ROUTE 06/03/18 23:49 06/03/18 23:51 DC Sodium Chloride 100 ml @ ud STK-MED ONCE IV 06/03/18 23:50 06/03/18 23:51 DC Cefazolin Sodium (Ancef) 1 gm STK-MED ONCE .ROUTE 06/04/18 06:15 06/04/18 06:16 DC Sodium Chloride 100 ml @ ud STK-MED ONCE IV 06/04/18 06:15 06/04/18 06:17 DC Course Sepsis Screening Results: Posi: NEGATIVE Sepsis Qualifier/Stage: NO DEFINITE RISK Duration or Total Time Spent w: 60 mins Vitals & review Data Vital Sign - Last 24 Hours 06/03/18 06/03/18 06/03/18 06/03/18 14:09 14:14 14:18 14:23 Temp 98.9 98.9 98.9 98.9 Pulse 88 89 88 Resp 14 14 B/P (MAP) 115/52 (73) 84/36 (52) Pulse Ox 94 94 O2 Delivery Room Air Room Air 06/03/18 06/03/18 06/03/18 06/03/18 14:29 14:31 14:44 14:59 Pulse 85 81 82 B/P (MAP) 93/51 (65) Pulse Ox 96 88 92 06/03/18 06/03/18 06/03/18 06/03/18 15:14 15:27 15:29 15:48 Pulse 88 89 B/P (MAP) 105/61 (76) 156/90 (112) Pulse Ox 94 95 06/03/18 06/03/18 06/03/18 06/03/18 15:59 16:04 16:14 16:19 Pulse 92 97 B/P (MAP) 134/73 (93) 148/42 (77) 06/03/18 06/03/18 06/03/18 06/03/18 16:29 16:34 16:44 16:49 Pulse 82 99 B/P (MAP) 151/71 (97) 156/99 (118) 06/03/18 06/03/18 06/03/18 06/03/18 16:59 17:04 17:14 18:00 Temp 98.6 98.6 Pulse 92 87 109 Resp 14 B/P (MAP) 134/70 (91) 104/39 06/03/18 06/03/18 06/03/18 06/03/18 18:15 18:20 18:55 19:08 Temp 99.0 98.3 100.6 99.8 99.0 98.3 100.6 99.8 Pulse 70 108 122 90 Resp 14 14 18 18 B/P (MAP) 91/62 105/68 87/49 (62) 118/61 (80) Pulse Ox 97 95 O2 Delivery Non-Rebreather Room Air O2 Flow Rate 10 06/03/18 06/03/18 06/03/18 06/03/18 19:25 21:49 22:55 22:56 Temp 99.5 99.5 Pulse 92 80 Resp 18 18 16 B/P (MAP) 121/60 (80) Pulse Ox 97 97 97 O2 Delivery Room Air Nasal Cannula CPAP FiO2 30 06/03/18 06/03/18 06/04/18 06/04/18 22:56 23:40 01:27 04:30 Temp 97.8 97.8 Pulse 80 88 76 Resp 16 18 19 B/P (MAP) 107/63 (78) Pulse Ox 98 97 95 O2 Delivery C-Pap C-Pap C Pap CPAP FiO2 30 30 06/04/18 06/04/18 06/04/18 06/04/18 04:47 07:42 08:23 08:26 Temp 97.4 98.3 97.4 98.3 Pulse 68 72 72 Resp 30 20 B/P (MAP) 104/64 (77) 98/59 (72) 98/59 Pulse Ox 97 O2 Delivery C Pap Room Air Nasal Cannula O2 Flow Rate 2.00 06/04/18 06/04/18 06/04/18 10:01 10:15 11:56 Temp 98.1 98.1 Pulse 69 71 Resp 16 20 B/P (MAP) 100/53 (69) Pulse Ox 98 98 O2 Delivery Nasal Cannula Nasal Cannula O2 Flow Rate 2.00 2.00 FiO2 28 Intake and Output 06/03/18 06/03/18 06/04/18 15:00 23:00 07:00 Intake Total 9000 ml 200 ml Output Total 275 ml Balance 9000 ml -75 ml Laboratory Tests Test 06/03/18 14:40 06/04/18 05:26 White Blood Count 9.2 10^3/uL 9.7 10^3/uL Red Blood Count 3.48 10^6/uL 2.78 10^6/uL Hemoglobin 10.8 g/dL 8.5 g/dL Hematocrit 33.2 % 27.0 % Mean Corpuscular Volume 95.4 fL 97.1 fL Mean Corpuscular Hemoglobin 31.0 pg 30.6 pg Mean Corpuscular Hemoglobin Concent 32.5 g/dL 31.5 g/dL Red Cell Distribution Width 17.2 % 17.1 % Platelet Count 165 10^3/uL 145 10^3/uL Mean Platelet Volume 10.2 fL 10.4 fL Neutrophils (%) (Auto) 76.0 % Lymphocytes (%) (Auto) 12.2 % Monocytes (%) (Auto) 10.5 % Neutrophils # (Auto) 7.0 10^3/uL Lymphocytes # (Auto) 1.1 10^3/uL Monocytes # (Auto) 1.0 10^3/uL Absolute Immature Granulocyte (auto 0.01 10^3 u/L Eosinophils % 1.0 % Basophils % 0.2 % Basophils # 0.0 10^3/uL Eosinophil Count 0.1 10^3/uL Prothrombin Time 22.2 SEC Prothrombin Time INR (Non-Therap) 2.3 Activated Partial Thromboplast Time 37.4 SEC Sodium Level 141 mmol/L Potassium Level 4.3 mmol/L Chloride Level 105.0 mmol/L Carbon Dioxide Level 27.5 mmol/L Anion Gap 12.8 Blood Urea Nitrogen 25 mg/dL Creatinine 1.53 mg/dL Estimated GFR () 53.4 BUN/Creatinine Ratio 16.0 Glucose Level 125 mg/dL Calcium Level 8.6 mg/dL Total Bilirubin 0.9 mg/dL Aspartate Amino Transf (AST/SGOT) 60 U/L Alanine Aminotransferase (ALT/SGPT) 12 U/L Alkaline Phosphatase 58 U/L Total Protein 6.7 g/dL Albumin 3.5 g/dL Globulin 3.2 Percent Immature Gran (Cell Imm) 0.10 % Current Medications Medications (Trade) Dose Ordered Sig/Feliz PRN Reason Start Time Stop Time Status Last Admin Carbidopa/Levodopa (Sinemet 25/100) 1 each TID 06/03/18 21:00 07/03/18 20:59 06/04/18 08:21 Carvedilol (Coreg) 6.25 mg BID 06/03/18 21:00 07/03/18 20:59 Cefazolin Sodium/ Dextrose (Ancef 2 Gm/D5W 50ml) 2 gm Q8 06/03/18 22:00 06/04/18 14:01 06/04/18 06:21 Clonazepam (Klonopin) 0.5 mg TID 06/03/18 21:00 07/03/18 20:59 06/04/18 08:22 Digoxin (Lanoxin) 125 mcg DAILY 06/04/18 09:00 07/04/18 08:59 06/04/18 08:21 Docusate Sodium (Colace) 100 mg DAILY 06/04/18 09:00 07/04/18 08:59 06/04/18 08:21 Famotidine (Pepcid) 20 mg DAILY 06/04/18 09:00 07/04/18 08:59 06/04/18 08:22 Meperidine HCl (Demerol) 50 mg Q4HR PRN PAIN 06/03/18 19:30 07/03/18 19:29 06/03/18 20:01 Metformin HCl (Glucophage Xr) 500 mg DAILY 06/04/18 09:00 07/04/18 08:59 Ondansetron HCl (Zofran) 4 mg Q4H PRN NAUSEA / VOMITING 06/03/18 19:30 07/03/18 19:29 Pantoprazole Sodium (Protonix) 40 mg BID 06/03/18 21:00 07/03/18 20:59 06/04/18 08:22 Paroxetine HCl (Paxil) 20 mg HS 06/03/18 21:00 07/03/18 20:59 06/03/18 20:59 Simvastatin (Zocor) 20 mg HS 06/03/18 21:00 07/03/18 20:59 06/04/18 00:00 Throat Lozenges (Cepacol Sore Throat Lozenge) 1 each PRN PRN SORE THROAT 06/03/18 19:30 07/03/18 19:29 Tramadol HCl (Ultram) 50 mg Q6H PRN MILD PAIN 06/03/18 19:30 07/03/18 19:29 Tramadol HCl (Ultram) 100 mg Q6H PRN SEVERE PAIN 06/03/18 19:30 07/03/18 19:29 06/04/18 06:22 Sepsis Infection Criteria Pres: None LEVEL 1 SEPSIS INFECTION CRITE: None/Not assessed LEVEL 2-SIRS (LIST ALL THAT AP: None/Not assessed Cardiovascular Evidence: Not Assessed or None Hematologic Evidence: None/Not assessed Hepatic Evidence: None/Not assessed Metabolic Evidence: None/Not assessed Neurological Evidence: None/Not assessed Respiratory Evidence: Need for O2 to keep>90%, O2 SAT<90room air Renal Evidence: None/Not assessed O2 Sat by Pulse Oximetry: 94 Oxygen Flow Rate: 2.00 Assessment/Plan Assessment/Plan Assessment/Plan 1.) L Lower Leg Compartment Syndrome - PO D1 fasciotomy. Stable and improved ROM. - May be going back to OR tomorrow. 2.) L LE Hematoma - Secondary to fall. Evac during surgery. - Continue holding Coumadin. 3.) Elevated INR - Secondary to therapeutic dose of Coumadin. No active bleeding. - Continue to hold Coumadin. 4.) Anemia - Probably secondary to expected drop with surgery. - Currently at 7.3, but given his significant cardiac hx and the fact that he may be going back to the OR 1 or more times, will transfuse 2 units flanking Lasix. 5.) Paroxysmal Afib - Rate controlled. I would not anticoagulate at this time secondary to fresh hematoma, ongoing OR cases, and high-risk for multiple falls. 6.) Acute Renal Insuff - Probably mild ATN. Will follow. 7.) End-Stage Parkinson's Disease - Putting him at very high risk for falls. Will very likely need SNF as outpt. - PT/OT. Plan 1.) L Lower Leg Compartment Syndrome - PO D1 fasciotomy. Stable and improved ROM. - May be going back to OR tomorrow. 2.) L LE Hematoma - Secondary to fall. Evac during surgery. - Continue holding Coumadin. 3.) Elevated INR - Secondary to therapeutic dose of Coumadin. No active bleeding. - Continue to hold Coumadin. 4.) Anemia - Probably secondary to expected drop with surgery. - Currently at 7.3, but given his significant cardiac hx and the fact that he may be going back to the OR 1 or more times, will transfuse 2 units flanking Lasix. 5.) Paroxysmal Afib - Rate controlled. I would not anticoagulate at this time secondary to fresh hematoma, ongoing OR cases, and high-risk for multiple falls. 6.) Acute Renal Insuff - Probably mild ATN. Will follow. 7.) End-Stage Parkinson's Disease - Putting him at very high risk for falls. Will very likely need SNF as outpt. - PT/OT. ARACELI HUMPHREY MD Jun 05, 2018 17:27
[2018-06-05] MEDS: LIPITOR PO SCH (21:06)
[2018-06-05] MEDS: PAXIL PO SCH (21:06)
[2018-06-05] MEDS: ZOCOR PO SCH (21:06)
[2018-06-05] MEDS: ALTACE PO SCH (21:07)
[2018-06-05] MEDS ORDERED: NEXTERONE 360 MG/200 ML BAG 200 ML IV SCH (21:30)
[2018-06-06] VITALS (89 sets, daily range): BP systolic 74–159; BP diastolic 35–97
[2018-06-06] MEDS: ANCEF 1 GM in NS 100ML 100 ML IV SCH ×3 (01:02→17:02)
[2018-06-06 05:02] LABS: HEMOGLOBIN 9.7 g/dL (13.9-16.3); MEAN CELL HGB 30.7 pg (26-34); MEAN CELL HGB CONCENTRATION 32.3 g/dL (33-37); MEAN CORP VOLUME 94.9 fL (78-100); MEAN PLATELET VOLUME 9.7 fL (7.8-11.0); RED CELL DISTRIBUTION WIDTH 18.2 % (11.5-14.5); WHITE BLOOD CELL 7.6 10^3/uL (4.5-11.0)
[2018-06-06 05:23] LABS: CALCIUM 8.4 mg/dL (8.4-10.5); CARBON DIOXIDE 30.4 mmol/L (20.0-32)
[2018-06-06] MEDS: NS 1000ML/KCL 20MEQ 1,000 ML IV SCH ×2 (06:22→22:43)
[2018-06-06] MEDS ORDERED: NS 1000ML 1,000 ML ONE (06:40)
[2018-06-06] MEDS ORDERED: SUBLIMAZE ONE (06:41)
[2018-06-06] MEDS ORDERED: XYLOCAINE ONE (06:41)
[2018-06-06] MEDS ORDERED: HEPARIN ONE (06:41)
[2018-06-06] MEDS ORDERED: VERSED ONE (06:41)
[2018-06-06] MEDS: ULTRAM PO PRN ×2 (07:15→13:31)
--- NOTE | 2018-06-06 08:26 | PCM.EKG ---
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
[2018-06-06] MEDS: COLACE PO SCH (09:18)
[2018-06-06] MEDS: KLONOPIN PO SCH ×3 (09:18→20:54)
[2018-06-06] MEDS: SINEMET 25/100 PO SCH ×3 (09:18→20:54)
[2018-06-06] MEDS: GLUCOPHAGE XR PO SCH (09:18)
[2018-06-06] MEDS: PROTONIX PO SCH (09:19)
[2018-06-06] MEDS: ALTACE PO SCH ×2 (09:19→20:56)
[2018-06-06] MEDS: COREG PO SCH ×2 (09:19→20:55)
[2018-06-06] MEDS: PEPCID PO SCH (09:19)
[2018-06-06] MEDS: LANOXIN PO SCH (09:19)
--- NOTE | 2018-06-06 09:29 | PRM.PN ---
Subjective Subjective Date: Jun 06, 2018 Time: 09:27 Subjective Patient denies complaints. Pain controlled. OR likely this AM for further debridement. Cardiology stepped up to ICU for Amio infusion. Patient has not converted but rate is controlled. No other issues. Labs reviewed. 06/05 In ICU HGB 9.7 after 2units of PRBCS Pain ok For Cardioversion later today as per Dr Paz Patient History: No known health problems 32 MOTHER, , Age:87 19 CHILD 19 CHILD, , Age:27 19 CHILD, , Age:54 Parkinson's disease G8 BROTHER, , Age:81 No Family History of: Alzheimer's disease Asthma Cerebrovascular disorder Chronic obstructive pulmonary disease Congestive heart failure Diabetes insipidus Diabetes mellitus Hypertension VTE VTE Risk Total Score: 3 VTE Risk Score VTE Risk: Score 0-1 = Low Risk (Aggressive mobilization; early ambulation; no VTE prophylaxis required) Score 2: Moderate Risk (Intermittent/Pneumatic Compression Device OR Lovenox/Heparin/Coumadin) Score 3-4: High Risk (Intermittent/Pneumatic Compression Device AND Lovenox/Heparin/Coumadin) Score > or =5: Highest Risk (Intermittent/Pneumatic Compression Device AND Lovenox/Heparin/Coumadin) Review of Systems Allergies: Coded Allergies: morphine (Verified Allergy, Severe, HALLUCINATIONS, 10/27/16) codeine (Verified Allergy, Intermediate, 06/03/18) Scheduled Aspirin (Aspir 81), 1 TAB PO DAILY, (Reported) Carbidopa/Levodopa (Sinemet 25-100 Mg Tablet), 1 TAB PO TID, (Reported) Carvedilol 6.25MG (Coreg 6.25MG), 1 TAB PO BID, (Reported) Clonazepam (Clonazepam), 1 TAB PO TID, (Reported) Digoxin (Digitek), 125 MCG PO DAILY, (Reported) Metformin Hcl (Metformin Hcl Er), 1 TAB PO DAILY, (Reported) Pantoprazole Sodium (Protonix), 1 TAB PO BID, (Reported) Paroxetine Hcl (Paroxetine Hcl), 1 TAB PO HS, (Reported) Simvastatin (Simvastatin), 1 TAB PO HS, (Reported) Warfarin Sodium (Warfarin Sodium), 1 TAB PO DAILY, (Reported) Warfarin Sodium (Warfarin Sodium), 0.5 TAB PO DAILY, (Reported) Scheduled PRN Acetaminophen With Codeine (Tylenol With Codeine #4 Tablet), 1-2 EACH PO Q4 PRN for PAIN Objective Vitals and I/O Vital Sign - Last 24 Hours 06/03/18 06/03/18 06/03/18 06/03/18 14:09 14:14 14:18 14:23 Temp 98.9 98.9 98.9 98.9 Pulse 88 89 88 Resp 14 14 B/P (MAP) 115/52 (73) 84/36 (52) Pulse Ox 94 94 O2 Delivery Room Air Room Air 06/03/18 06/03/18 06/03/18 06/03/18 14:29 14:31 14:44 14:59 Pulse 85 81 82 B/P (MAP) 93/51 (65) Pulse Ox 96 88 92 06/03/18 06/03/18 06/03/18 06/03/18 15:14 15:27 15:29 15:48 Pulse 88 89 B/P (MAP) 105/61 (76) 156/90 (112) Pulse Ox 94 95 06/03/18 06/03/18 06/03/18 06/03/18 15:59 16:04 16:14 16:19 Pulse 92 97 B/P (MAP) 134/73 (93) 148/42 (77) 06/03/18 06/03/18 06/03/18 06/03/18 16:29 16:34 16:44 16:49 Pulse 82 99 B/P (MAP) 151/71 (97) 156/99 (118) 06/03/18 06/03/18 06/03/18 06/03/18 16:59 17:04 17:14 18:00 Temp 98.6 98.6 Pulse 92 87 109 Resp 14 B/P (MAP) 134/70 (91) 104/39 06/03/18 06/03/18 06/03/18 06/03/18 18:15 18:20 18:55 19:08 Temp 99.0 98.3 100.6 99.8 99.0 98.3 100.6 99.8 Pulse 70 108 122 90 Resp 14 14 18 18 B/P (MAP) 91/62 105/68 87/49 (62) 118/61 (80) Pulse Ox 97 95 O2 Delivery Non-Rebreather Room Air O2 Flow Rate 10 3/2/06/03/18 06/03/18 06/03/18 19:25 21:49 22:55 22:56 Temp 99.5 99.5 Pulse 92 80 Resp 18 18 16 B/P (MAP) 121/60 (80) Pulse Ox 97 97 97 O2 Delivery Room Air Nasal Cannula CPAP FiO2 30 06/03/18 06/03/18 06/04/18 06/04/18 22:56 23:40 01:27 04:30 Temp 97.8 97.8 Pulse 80 88 76 Resp 16 18 19 B/P (MAP) 107/63 (78) Pulse Ox 98 97 95 O2 Delivery C-Pap C-Pap C Pap CPAP FiO2 30 30 06/04/18 06/04/18 06/04/18 06/04/18 04:47 07:42 08:23 08:26 Temp 97.4 98.3 97.4 98.3 Pulse 68 72 72 Resp 30 20 B/P (MAP) 104/64 (77) 98/59 (72) 98/59 Pulse Ox 97 O2 Delivery C Pap Room Air Nasal Cannula O2 Flow Rate 2.00 06/04/18 06/04/18 06/04/18 10:01 10:15 11:56 Temp 98.1 98.1 Pulse 69 71 Resp 16 20 B/P (MAP) 100/53 (69) Pulse Ox 98 98 O2 Delivery Nasal Cannula Nasal Cannula O2 Flow Rate 2.00 2.00 FiO2 28 Intake and Output 06/03/18 06/03/18 06/04/18 15:00 23:00 07:00 Intake Total 9000 ml 200 ml Output Total 275 ml Balance 9000 ml -75 ml General: Alert, Oriented X3, Cooperative, No acute distress HEENT: Atraumatic, PERRLA, EOMI Neck: Supple, No JVD Lungs: Clear to auscultation, Normal air movement Heart: Regular rate, Normal S1, Normal S2, No murmurs Abdomen: Normal bowel sounds, Soft, No tenderness, No masses Extremities: Other (L LE wrapped, cleand dressed and dry.) Skin: No rashes Neuro: Normal gait, Normal speech, Strength at 5/5 X4 ext, Normal tone, Sensation intact, Cranial nerves 3-12 NL, Other (Moderate to severe resting parkinsonian tremor on RUE.) Psych/Mental Status: Mental status NL, Mood NL All Results(Lab/Rad) Laboratory Tests Test 06/03/18 14:40 06/04/18 05:26 White Blood Count 9.2 10^3/uL 9.7 10^3/uL Red Blood Count 3.48 10^6/uL 2.78 10^6/uL Hemoglobin 10.8 g/dL 8.5 g/dL Hematocrit 33.2 % 27.0 % Mean Corpuscular Volume 95.4 fL 97.1 fL Mean Corpuscular Hemoglobin 31.0 pg 30.6 pg Mean Corpuscular Hemoglobin Concent 32.5 g/dL 31.5 g/dL Red Cell Distribution Width 17.2 % 17.1 % Platelet Count 165 10^3/uL 145 10^3/uL Mean Platelet Volume 10.2 fL 10.4 fL Neutrophils (%) (Auto) 76.0 % Lymphocytes (%) (Auto) 12.2 % Monocytes (%) (Auto) 10.5 % Neutrophils # (Auto) 7.0 10^3/uL Lymphocytes # (Auto) 1.1 10^3/uL Monocytes # (Auto) 1.0 10^3/uL Absolute Immature Granulocyte (auto 0.01 10^3 u/L Eosinophils % 1.0 % Basophils % 0.2 % Basophils # 0.0 10^3/uL Eosinophil Count 0.1 10^3/uL Prothrombin Time 22.2 SEC Prothrombin Time INR (Non-Therap) 2.3 Activated Partial Thromboplast Time 37.4 SEC Sodium Level 141 mmol/L Potassium Level 4.3 mmol/L Chloride Level 105.0 mmol/L Carbon Dioxide Level 27.5 mmol/L Anion Gap 12.8 Blood Urea Nitrogen 25 mg/dL Creatinine 1.53 mg/dL Estimated GFR () 53.4 BUN/Creatinine Ratio 16.0 Glucose Level 125 mg/dL Calcium Level 8.6 mg/dL Total Bilirubin 0.9 mg/dL Aspartate Amino Transf (AST/SGOT) 60 U/L Alanine Aminotransferase (ALT/SGPT) 12 U/L Alkaline Phosphatase 58 U/L Total Protein 6.7 g/dL Albumin 3.5 g/dL Globulin 3.2 Percent Immature Gran (Cell Imm) 0.10 % Current Medications Medications (Trade) Dose Ordered Sig/Feliz Route PRN Reason Start Time Stop Time Status Last Admin Dose Admin Sodium Chloride 1,000 ml @ 1,200 mls/hr Q50M STAT IV 06/03/18 14:38 06/03/18 15:27 DC 06/03/18 14:53 Sodium Chloride (Sodium Chloride) 1,000 ml STK-MED ONCE IR 06/03/18 17:05 06/03/18 17:07 DC Sodium Chloride 1,000 ml @ ud STK-MED ONCE .ROUTE 06/03/18 17:21 06/03/18 17:23 DC Sodium Chloride 100 ml @ ud STK-MED ONCE IV 06/03/18 17:22 06/03/18 17:23 DC Dexamethasone Sodium Phosphate (Decadron) 4 mg STK-MED ONCE .ROUTE 06/03/18 17:22 06/03/18 17:23 DC Ondansetron HCl (Zofran) 4 mg STK-MED ONCE .ROUTE 06/03/18 17:22 06/03/18 17:23 DC Etomidate (Amidate) 40 mg STK-MED ONCE IV 06/03/18 17:22 06/03/18 17:23 DC Fentanyl Citrate (Sublimaze) 100 mcg STK-MED ONCE .ROUTE 06/03/18 17:22 06/03/18 17:24 DC Propofol (Diprivan) 200 mg STK-MED ONCE IV 06/03/18 17:22 06/03/18 17:24 DC Cefazolin Sodium (Ancef) 1 gm STK-MED ONCE .ROUTE 06/03/18 17:46 06/03/18 17:47 DC Sodium Chloride 250 ml @ ud STK-MED ONCE IV 06/03/18 17:46 06/03/18 17:47 DC Fentanyl Citrate (Sublimaze) 25 mcg Q5MIN PRN IV PAIN 06/03/18 19:30 06/03/18 22:40 DC Ondansetron HCl (Zofran) 4 mg PRN PRN IV nv 06/03/18 19:30 06/03/18 22:43 DC Diphenhydramine HCl (Benadryl) 25 mg Q5MIN PRN IV NAUSEA / VOMITING 06/03/18 19:30 06/03/18 22:34 DC Albuterol Sulfate (Ventolin) 2.5 mg OT PRN IH WHEEZING 06/03/18 19:30 06/03/18 22:42 DC Tramadol HCl (Ultram) 50 mg Q6H PRN PO MILD PAIN 06/03/18 19:30 07/03/18 19:29 Tramadol HCl (Ultram) 100 mg Q6H PRN PO SEVERE PAIN 06/03/18 19:30 07/03/18 19:29 06/04/18 06:22 Docusate Sodium (Colace) 100 mg DAILY PO 06/04/18 09:00 07/04/18 08:59 06/04/18 08:21 Throat Lozenges (Cepacol Sore Throat Lozenge) 1 each PRN PRN MM SORE THROAT 06/03/18 19:30 07/03/18 19:29 Famotidine (Pepcid) 20 mg DAILY PO 06/04/18 09:00 07/04/18 08:59 06/04/18 08:22 Cefazolin Sodium/ Dextrose (Ancef 2 Gm/D5W 50ml) 2 gm Q8 IV 06/03/18 22:00 06/04/18 14:01 06/04/18 06:21 Meperidine HCl (Demerol) 50 mg Q4HR PRN IV PAIN 06/03/18 19:30 07/03/18 19:29 06/03/18 20:01 Ondansetron HCl (Zofran) 4 mg Q4H PRN IV NAUSEA / VOMITING 06/03/18 19:30 07/03/18 19:29 Carbidopa/Levodopa (Sinemet 25/100) 1 each TID PO 06/03/18 21:00 07/03/18 20:59 06/04/18 08:21 Carvedilol (Coreg) 6.25 mg BID PO 06/03/18 21:00 07/03/18 20:59 Clonazepam (Klonopin) 0.5 mg TID PO 06/03/18 21:00 07/03/18 20:59 06/04/18 08:22 Digoxin (Lanoxin) 125 mcg DAILY PO 06/04/18 09:00 07/04/18 08:59 06/04/18 08:21 Pantoprazole Sodium (Protonix) 40 mg BID PO 06/03/18 21:00 07/03/18 20:59 06/04/18 08:22 Paroxetine HCl (Paxil) 20 mg HS PO 06/03/18 21:00 07/03/18 20:59 06/03/18 20:59 Simvastatin (Zocor) 20 mg HS PO 06/03/18 21:00 07/03/18 20:59 06/04/18 00:00 Metformin HCl (Glucophage Xr) 500 mg DAILY PO 06/04/18 09:00 07/04/18 08:59 Sodium Chloride 0 ml @ 999 mls/hr Q0M STAT IV 06/03/18 20:48 06/03/18 22:39 DC 06/03/18 20:48 Metoprolol Succinate (Toprol Xl) 25 mg STAT STAT PO 06/03/18 20:48 06/03/18 22:40 DC 06/03/18 21:05 Metoprolol Tartrate (Lopresser) 25 mg STK-MED ONCE .ROUTE 06/03/18 20:57 06/03/18 20:59 DC Cefazolin Sodium (Ancef) 1 gm STK-MED ONCE .ROUTE 06/03/18 23:49 06/03/18 23:51 DC Sodium Chloride 100 ml @ ud STK-MED ONCE IV 06/03/18 23:50 06/03/18 23:51 DC Cefazolin Sodium (Ancef) 1 gm STK-MED ONCE .ROUTE 06/04/18 06:15 06/04/18 06:16 DC Sodium Chloride 100 ml @ ud STK-MED ONCE IV 06/04/18 06:15 06/04/18 06:17 DC Course Sepsis Screening Results: Posi: POSITIVE Sepsis Qualifier/Stage: SEPSIS RISK Duration or Total Time Spent w: 60 mins Vitals & review Data Vital Sign - Last 24 Hours 06/03/18 06/03/18 06/03/18 06/03/18 14:09 14:14 14:18 14:23 Temp 98.9 98.9 98.9 98.9 Pulse 88 89 88 Resp 14 14 B/P (MAP) 115/52 (73) 84/36 (52) Pulse Ox 94 94 O2 Delivery Room Air Room Air 06/03/18 06/03/18 06/03/18 06/03/18 14:29 14:31 14:44 14:59 Pulse 85 81 82 B/P (MAP) 93/51 (65) Pulse Ox 96 88 92 306/03/18 06/03/18 06/03/18 15:14 15:27 15:29 15:48 Pulse 88 89 B/P (MAP) 105/61 (76) 156/90 (112) Pulse Ox 94 95 06/03/18 06/03/18 06/03/18 06/03/18 15:59 16:04 16:14 16:19 Pulse 92 97 B/P (MAP) 134/73 (93) 148/42 (77) 06/03/18 06/03/18 06/03/18 06/03/18 16:29 16:34 16:44 16:49 Pulse 82 99 B/P (MAP) 151/71 (97) 156/99 (118) 06/03/18 06/03/18 06/03/18 06/03/18 16:59 17:04 17:14 18:00 Temp 98.6 98.6 Pulse 92 87 109 Resp 14 B/P (MAP) 134/70 (91) 104/39 06/03/18 06/03/18 06/03/18 06/03/18 18:15 18:20 18:55 19:08 Temp 99.0 98.3 100.6 99.8 99.0 98.3 100.6 99.8 Pulse 70 108 122 90 Resp 14 14 18 18 B/P (MAP) 91/62 105/68 87/49 (62) 118/61 (80) Pulse Ox 97 95 O2 Delivery Non-Rebreather Room Air O2 Flow Rate 10 06/03/18 06/03/18 06/03/18 06/03/18 19:25 21:49 22:55 22:56 Temp 99.5 99.5 Pulse 92 80 Resp 18 18 16 B/P (MAP) 121/60 (80) Pulse Ox 97 97 97 O2 Delivery Room Air Nasal Cannula CPAP FiO2 30 06/03/18 06/03/18 06/04/18 06/04/18 22:56 23:40 01:27 04:30 Temp 97.8 97.8 Pulse 80 88 76 Resp 16 18 19 B/P (MAP) 107/63 (78) Pulse Ox 98 97 95 O2 Delivery C-Pap C-Pap C Pap CPAP FiO2 30 30 06/04/18 06/04/18 06/04/18 06/04/18 04:47 07:42 08:23 08:26 Temp 97.4 98.3 97.4 98.3 Pulse 68 72 72 Resp 30 20 B/P (MAP) 104/64 (77) 98/59 (72) 98/59 Pulse Ox 97 O2 Delivery C Pap Room Air Nasal Cannula O2 Flow Rate 2.00 06/04/18 06/04/18 06/04/18 10:01 10:15 11:56 Temp 98.1 98.1 Pulse 69 71 Resp 16 20 B/P (MAP) 100/53 (69) Pulse Ox 98 98 O2 Delivery Nasal Cannula Nasal Cannula O2 Flow Rate 2.00 2.00 FiO2 28 Intake and Output 06/03/18 06/03/18 06/04/18 15:00 23:00 07:00 Intake Total 9000 ml 200 ml Output Total 275 ml Balance 9000 ml -75 ml Laboratory Tests Test 06/03/18 14:40 06/04/18 05:26 White Blood Count 9.2 10^3/uL 9.7 10^3/uL Red Blood Count 3.48 10^6/uL 2.78 10^6/uL Hemoglobin 10.8 g/dL 8.5 g/dL Hematocrit 33.2 % 27.0 % Mean Corpuscular Volume 95.4 fL 97.1 fL Mean Corpuscular Hemoglobin 31.0 pg 30.6 pg Mean Corpuscular Hemoglobin Concent 32.5 g/dL 31.5 g/dL Red Cell Distribution Width 17.2 % 17.1 % Platelet Count 165 10^3/uL 145 10^3/uL Mean Platelet Volume 10.2 fL 10.4 fL Neutrophils (%) (Auto) 76.0 % Lymphocytes (%) (Auto) 12.2 % Monocytes (%) (Auto) 10.5 % Neutrophils # (Auto) 7.0 10^3/uL Lymphocytes # (Auto) 1.1 10^3/uL Monocytes # (Auto) 1.0 10^3/uL Absolute Immature Granulocyte (auto 0.01 10^3 u/L Eosinophils % 1.0 % Basophils % 0.2 % Basophils # 0.0 10^3/uL Eosinophil Count 0.1 10^3/uL Prothrombin Time 22.2 SEC Prothrombin Time INR (Non-Therap) 2.3 Activated Partial Thromboplast Time 37.4 SEC Sodium Level 141 mmol/L Potassium Level 4.3 mmol/L Chloride Level 105.0 mmol/L Carbon Dioxide Level 27.5 mmol/L Anion Gap 12.8 Blood Urea Nitrogen 25 mg/dL Creatinine 1.53 mg/dL Estimated GFR () 53.4 BUN/Creatinine Ratio 16.0 Glucose Level 125 mg/dL Calcium Level 8.6 mg/dL Total Bilirubin 0.9 mg/dL Aspartate Amino Transf (AST/SGOT) 60 U/L Alanine Aminotransferase (ALT/SGPT) 12 U/L Alkaline Phosphatase 58 U/L Total Protein 6.7 g/dL Albumin 3.5 g/dL Globulin 3.2 Percent Immature Gran (Cell Imm) 0.10 % Current Medications Medications (Trade) Dose Ordered Sig/Feliz PRN Reason Start Time Stop Time Status Last Admin Carbidopa/Levodopa (Sinemet 25/100) 1 each TID 06/03/18 21:00 07/03/18 20:59 06/04/18 08:21 Carvedilol (Coreg) 6.25 mg BID 06/03/18 21:00 07/03/18 20:59 Cefazolin Sodium/ Dextrose (Ancef 2 Gm/D5W 50ml) 2 gm Q8 06/03/18 22:00 06/04/18 14:01 06/04/18 06:21 Clonazepam (Klonopin) 0.5 mg TID 06/03/18 21:00 07/03/18 20:59 06/04/18 08:22 Digoxin (Lanoxin) 125 mcg DAILY 06/04/18 09:00 07/04/18 08:59 06/04/18 08:21 Docusate Sodium (Colace) 100 mg DAILY 06/04/18 09:00 07/04/18 08:59 06/04/18 08:21 Famotidine (Pepcid) 20 mg DAILY 06/04/18 09:00 07/04/18 08:59 06/04/18 08:22 Meperidine HCl (Demerol) 50 mg Q4HR PRN PAIN 06/03/18 19:30 07/03/18 19:29 06/03/18 20:01 Metformin HCl (Glucophage Xr) 500 mg DAILY 06/04/18 09:00 07/04/18 08:59 Ondansetron HCl (Zofran) 4 mg Q4H PRN NAUSEA / VOMITING 06/03/18 19:30 07/03/18 19:29 Pantoprazole Sodium (Protonix) 40 mg BID 06/03/18 21:00 07/03/18 20:59 06/04/18 08:22 Paroxetine HCl (Paxil) 20 mg HS 06/03/18 21:00 07/03/18 20:59 06/03/18 20:59 Simvastatin (Zocor) 20 mg HS 06/03/18 21:00 07/03/18 20:59 06/04/18 00:00 Throat Lozenges (Cepacol Sore Throat Lozenge) 1 each PRN PRN SORE THROAT 06/03/18 19:30 07/03/18 19:29 Tramadol HCl (Ultram) 50 mg Q6H PRN MILD PAIN 06/03/18 19:30 07/03/18 19:29 Tramadol HCl (Ultram) 100 mg Q6H PRN SEVERE PAIN 06/03/18 19:30 07/03/18 19:29 06/04/18 06:22 Sepsis Infection Criteria Pres: Suspected Infection LEVEL 1 SEPSIS INFECTION CRITE: ABX Therapy, Recent Invasive Procedure LEVEL 2-SIRS (LIST ALL THAT AP: None/Not assessed Cardiovascular Evidence: Not Assessed or None Hematologic Evidence: None/Not assessed Hepatic Evidence: Elevated AST(SGOT)>72 Metabolic Evidence: None/Not assessed Neurological Evidence: None/Not assessed Respiratory Evidence: Need for O2 to keep>90%, O2 SAT<90room air Renal Evidence: None/Not assessed O2 Sat by Pulse Oximetry: 98 Oxygen Flow Rate: 2.00 Assessment/Plan Assessment/Plan Assessment/Plan 1.) L Lower Leg Compartment Syndrome - POD 2 fasciotomy. Possible further debridement in OR this AM. Cont IV abx. Pain currently controlled. Cont PT/OT. 2.) L LE Hematoma - Secondary to fall. Evac during surgery. - currently holding anticoagulation. Restart per Cards/surgery 3.) Coagulopathy: INR subtherapeutic currently. Will defer anticoagulation recs to Cardiology. 4.) Anemia - Hg improved s/p Transfusion. Will recheck CBC in AM. 5.) Chronic Afib- Rate controlled. Cards has been consulted, cont Amio infusion. Possible Cardioversion. Will defer anticoagulation recs to Cards. Patient is fall risk. 6.) Acute Renal Insuff - BUN/Cr mildly elevated. GFR above 70. 7.) End-Stage Parkinson's Disease - cont PT/OT. 8. PPx: PPI and Pepcid, no VTE currently 2/2 Compartment syndrome and Anemia. 9. DM: cont PO oral hypoglycemics Plan 1.) L Lower Leg Compartment Syndrome - POD 2 fasciotomy. Possible further debridement in OR this AM. Cont IV abx. Pain currently controlled. Cont PT/OT. 2.) L LE Hematoma - Secondary to fall. Evac during surgery. - currently holding anticoagulation. Restart per Cards/surgery 3.) Coagulopathy: INR subtherapeutic currently. Will defer anticoagulation recs to Cardiology. 4.) Anemia - Hg improved s/p Transfusion. Will recheck CBC in AM. 5.) Chronic Afib- Rate controlled. Cards has been consulted, cont Amio infusion. Possible Cardioversion. Will defer anticoagulation recs to Cards. Patient is fall risk. 6.) Acute Renal Insuff - BUN/Cr mildly elevated. GFR above 70. 7.) End-Stage Parkinson's Disease - cont PT/OT. 8. PPx: PPI and Pepcid, no VTE currently 2/2 Compartment syndrome and Anemia. 9. DM: cont PO oral hypoglycemics ARACELI HUMPHREY MD Jun 06, 2018 09:29
[2018-06-06] MEDS: FIBERCON PO SCH (09:47)
--- NOTE | 2018-06-06 12:18 | DIET.OP ---
Nutrition Asmt/Malnutrit 2-17 Nutritional Screening: Malnutr/Diet Consult Diagnosis: Painful Left Lower Leg Pertinent Medical Hx/Surgical: Per MD: Medical problems include history of atrial fibrillation, history of congestive heart failure, coronary artery disease. He has diabetes, hypertension, Parkinson's. Subjective Information: Consulted for Diabetic assessment. Spoke to the patient with the presence of the and daughter in the room. He does not currently have any appetite problems, past or present. He currently takes metformin and a cinnamon pill daily for DM, unsure of dosages. He normally eats two meals daily. His reports that she helps him check his sugars normally 3 times weekly, unless the patient feels that he needs to check them more often. Blood sugars run around 110 mg/dL at home. Sometimes has problems swallowing when he eats too fast. Unable to get a UBW. Current Diet Order/Nutrition S: 1800 ADA, 2 gr Na Pertinent Meds Current Medications Medications (Trade) Dose Ordered Sig/Feliz PRN Reason Start Time Stop Time Status Last Admin Amiodarone HCL/ Dextrose 200 ml @ 17 mls/hr OT 06/05/18 21:30 07/05/18 21:29 Amiodarone HCL/ Dextrose 200 ml @ 34 mls/hr OT 06/05/18 15:30 07/05/18 15:29 06/05/18 22:32 Atorvastatin Calcium (Lipitor) 40 mg HS 06/05/18 21:00 07/05/18 20:59 06/05/18 21:06 Calcium Polycarbophil (Fibercon) 625 mg DAILY 06/06/18 10:00 07/06/18 09:59 06/06/18 09:47 Carbidopa/Levodopa (Sinemet 25/100) 1 each TID 06/03/18 21:00 07/03/18 20:59 06/06/18 09:18 Carvedilol (Coreg) 6.25 mg BID 06/03/18 21:00 07/03/18 20:59 06/06/18 09:19 Cefazolin Sodium 1 gm/Sodium Chloride 100 ml @ 100 mls/hr Q8H 06/06/18 01:00 07/06/18 00:59 06/06/18 09:19 Clonazepam (Klonopin) 0.5 mg TID 06/03/18 21:00 07/03/18 20:59 06/06/18 09:18 Digoxin (Lanoxin) 125 mcg DAILY 06/04/18 09:00 07/04/18 08:59 06/06/18 09:19 Docusate Sodium (Colace) 100 mg DAILY 06/04/18 09:00 07/04/18 08:59 06/06/18 09:18 Famotidine (Pepcid) 20 mg DAILY 06/04/18 09:00 07/04/18 08:59 06/06/18 09:19 Meperidine HCl (Demerol) 50 mg Q4HR PRN PAIN 06/03/18 19:30 07/03/18 19:29 06/03/18 20:01 Metformin HCl (Glucophage Xr) 500 mg DAILY 06/04/18 09:00 07/04/18 08:59 06/06/18 09:18 Ondansetron HCl (Zofran) 4 mg Q4H PRN NAUSEA / VOMITING 06/03/18 19:30 07/03/18 19:29 Pantoprazole Sodium (Protonix) 40 mg BID 06/03/18 21:00 07/03/18 20:59 06/06/18 09:19 Paroxetine HCl (Paxil) 20 mg HS 06/03/18 21:00 07/03/18 20:59 06/05/18 21:06 Potassium Chloride/Sodium Chloride 1,000 ml @ 80 mls/hr [id number] 06/05/18 15:30 07/05/18 15:29 06/06/18 06:22 Ramipril (Altace) 1.25 mg BID 06/05/18 21:00 07/05/18 20:59 06/06/18 09:19 Simvastatin (Zocor) 20 mg HS 06/03/18 21:00 07/03/18 20:59 06/05/18 21:06 Throat Lozenges (Cepacol Sore Throat Lozenge) 1 each PRN PRN SORE THROAT 06/03/18 19:30 07/03/18 19:29 Tramadol HCl (Ultram) 50 mg Q6H PRN MILD PAIN 06/03/18 19:30 07/03/18 19:29 06/06/18 07:15 Tramadol HCl (Ultram) 100 mg Q6H PRN SEVERE PAIN 06/03/18 19:30 07/03/18 19:29 06/05/18 11:43 Pertinent Labs Laboratory Tests 06/05/18 12:23: Troponin I 0.07H, Pro-B-Type Natriuretic Peptide 1920H 06/06/18 04:50: White Blood Count 7.6, Red Blood Count 3.16L, Hemoglobin 9.7#L, Hematocrit 30.0L , Mean Corpuscular Volume 94.9, Mean Corpuscular Hemoglobin 30.7, Mean Corpuscular Hemoglobin Concent 32.3L, Red Cell Distribution Width 18.2H, Platelet Count 148L, Mean Platelet Volume 9.7, Sodium Level 141, Potassium Level 4.2, Chloride Level 104.0, Carbon Dioxide Level 30.4, Anion Gap 10.8, Blood Urea Nitrogen 21H, Creatinine 1.17, Estimated GFR () 72.8 , BUN/Creatinine Ratio 17.0, Glucose Level 111H, Calcium Level 8.4, Total Bilirubin 0.8, Aspartate Amino Transf (AST/SGOT) 78H, Alanine Aminotransferase ( ALT/SGPT) 11L, Alkaline Phosphatase 47L, Total Protein 6.1L, Albumin 2.8L, Globulin 3.3 Height (Feet): 5 Height (Inches): 8 Current Weight: 180 %IBW: 117 Weight Status: Appropriate Food Allergies: No Cultural/Ethnic/Orthodox Maty: None reported Current %PO: Good(75-100%) BEE in Kcals: Use Current Weight Calories/Kcals/Kg: MsJ * 1.2-1.3 Kcals Calculated: [id number] Protein: Use Current Weight Protein g/k-20% of 1800 ADA Protein Calculated: 68g-90g Fluid: ml: 5431-2086 or 1 mL/kcal Nutritional Problem: No Cur. Nutritional Probl Signs/Symptoms: BMI 26.7, 117% IBW, 75-100% consumption of most meals, Blood Sugars 96-136 mg/dL RD Comments: CHO needs: 45-55% of 1800 ADA or 203g-248g daily Intervention: 1. Continue with current diet order 2. If necessary, educate the patient about the consistent CHO diet Monitor/evaluate: 1. Blood Glucose Levels 2. Weight status 3. po intake Expected Outcomes Goal: 1. The patient will consume 100% of meals provided to meet 100% pf estimated energy needs over the next 2-3 days Discharge plan; 1. Discharge planning in progress Malnutrtion/Nutrition Risk Edu: VIRA Lou RD Jun 06, 2018 12:18
[2018-06-06] MEDS: CORDARONE PO SCH (20:55)
[2018-06-06] MEDS: PAXIL PO SCH (20:55)
[2018-06-06] MEDS: LIPITOR PO SCH ×2 (20:56→21:00)
[2018-06-07] VITALS (85 sets, daily range): BP systolic 88–157; BP diastolic 33–105
[2018-06-07] MEDS: ANCEF 1 GM in NS 100ML 100 ML IV SCH ×3 (00:57→17:15)
--- NOTE | 2018-06-07 01:19 | CNH ---
DATE OF CONSULTATION: 06/05/2018 IDENTIFICATION: A 77-year-old male. PRIMARY CARE PHYSICIAN: Dr. Simon. CHIEF COMPLAINT: Preop evaluation for right lower leg hematoma exacerbation with unstable vital signs and rapid irregular heartbeat. HISTORY OF PRESENT ILLNESS: The patient is a 77-year-old white male with known history of atherosclerotic heart disease and has one coronary stent placed and has been told that he has cardiomyopathy, chronic systolic heart failure, congestive heart failure and he has irregular rhythm and apparently, he has a device and it is biventricular pacer ICD device implanted by ____, generator change done by Dr. Liao about 3 years ago and he has had recurrent falls, dizziness, lightheadedness. At this time, he felt a huge hematoma in the right leg and was seen by Dr. Calle and the hematoma would require evacuation surgery and skin grafting by Dr. Hartman, consulted by ____ found the patient's blood pressure was 70/50 and his heart rate was 130. He was in flutter/fibrillation with ventricular heart rate with flutter waves tracking and ventricular pacing with a rate of 130 and the patient has weakness and fatigue. Denies chest pain, but dyspnea on exertion with extreme poor effort tolerance and he has had a drop in hemoglobin from 10 to almost 7 grams and he is getting 2 units of blood at this time and he has been given morphine. MEDICATIONS: He has been on multiple medications: Aspirin 81 mg once a day, Coumadin 2.5 mg once a day alternating with ____ they have been stopped since he was admitted. He was on Tylenol with Codeine 1 tablet q. 4 hours p.r.n. pain and he has a history of Parkinson's. He is on Sinemet 25/100 one tablet 3 times a day, Coreg 6.25 mg twice a day, clonazepam 0.5 mg 3 times a day, digoxin 0.125 mg daily, metformin 500 mg daily, Protonix 40 mg once a day, paroxetine 20 mg once a day, simvastatin 20 mg once a day. PAST MEDICAL HISTORY: Admits to have CAD, coronary stent with congestive heart failure, biventricular device and [employer]-D, dyslipidemia, diabetes, kidney disease, Parkinson's disease, hypertension, hypertensive heart disease and prior ____ operation. SOCIAL HISTORY: Nonsmoker and no ethanol abuse. FAMILY HISTORY: Not much available from the patient. PHYSICAL EXAMINATION: GENERAL: The patient was lying in bed and he is 172 cm and 82 kilograms and BMI 27.7. VITAL SIGNS: Showed a heart rate of 130, blood pressure was 70/50 in lying position, his respirations were 18. He appeared very pale. RBC infusion in progress. HEENT: Otherwise unremarkable. No obvious JVP or carotid bruits are noted. LUNGS: Poor air entry bilaterally. HEART: Sounds S1, S2 irregular and arrhythmia. No murmurs were audible. ABDOMEN: Rounded, soft, nontender, no organomegaly. EXTREMITIES: Distal pulses poorly felt. Right leg has been red because of the hematoma and dependent edema was noted in the left leg. NEUROLOGIC: He is alert, awake, oriented. No lateralizing motor deficit is documented. LABORATORY DATA: Showed hemoglobin dropped from 10.8-7.3 and chemistries showed a BUN of 24, creatinine of 1.09 with an elevation of SGOT to 110, alkaline phosphatase is 42, creatinine came down from 1.53-1.09 with a BUN of 24. ProBNP is 1920. Troponin is 0.07. IMAGING STUDIES: EKG shows atrial flutter/fibrillation with rapid ventricular response with flutter, tracking with ventricular pacing at a rate of 130 along with left bundle-branch block pattern. His chest x-ray shows cardiomegaly. There was lower extremity CT done, which showed no evidence of any acute bony abnormality, soft tissue swelling and hematoma noted. No actual fracture is noted. IMPRESSION: Recurrent falls, atrial flutter/fibrillation with rapid ventricular response and ischemic cardiomyopathy with low ejection fraction somewhere around 25-30%, hypotension, hypovolemia, probably related to blood loss due to hematoma with drop in hemoglobin to 7.3, large right leg hematoma, history of diabetes, history of hypertension, hypertensive heart disease. RECOMMENDATIONS: At this time, we will transfer the patient to ICU. We will interrogate the device and see when he went into atrial flutter/fibrillation. According to the family, he was in and out of flutter/fibrillation. We will get the history of his arrhythmias on interrogation echocardiogram to assess LV function. We will give blood transfusion and judicious fluids. Once the blood pressure is stabilized, we will probably start him on IV amiodarone to control rate and may try to achieve chemical cardioversion. He is off anticoagulation at the present time, so one would not shock him, rate control would be acceptable and may start him on preload and afterload agents once blood pressure stabilizes. He is not hemodynamically stable to undergo surgery at the present time. We will reevaluate him on 06/06/2018 and determine his risk. Thank you very much for this consultation. Chandnihand MD Aj DR: MARITZA/gabby JOB# [id number]
--- NOTE | 2018-06-07 04:02 | CNH ---
DATE OF CONSULTATION: BRIEF CONSULTATION CHIEF COMPLAINT: Wound on the left leg. HISTORY OF PRESENT ILLNESS: This is a 77-year-old male who apparently has been managed on outpatient Coumadin for some time. Approximately a week ago, he had an injury at home and developed some bleeding, which ultimately led to compartment syndrome. He was emergently evaluated over the weekend at [facility] and operated on by Orthopedics. There are some concerns for the possible need for skin graft depending on how the wound progresses. Unfortunately, postop phase, he had some bleeding that required transfusion and he is currently in the ICU for his AFib with RVR. The patient's believes he did have a similar bleeding episode in the past associated with elevated Coumadin levels. PAST MEDICAL HISTORY: Includes atrial fibrillation, history of chronic congestive heart failure, coronary artery disease, previous stent placement, Parkinson's disease, diabetes, hypertension. ALLERGIES: Include CODEINE and MORPHINE. INPATIENT MEDICATIONS: Per MAR. OUTPATIENT MEDICATIONS: Per electronic medical record for medical reconciliation. PAST SURGICAL HISTORY: Includes knee replacement, pacemaker, ICD, previous cardiac stent. SOCIAL HISTORY: Essentially negative for any recent alcohol, tobacco or illicit drug use. He apparently lives with his , in [place]. He is retired. 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 FAMILY HISTORY: Essentially noncontributory. REVIEW OF SYSTEMS: GENERAL: Positive for weakness and fatigue. ENDOCRINE: He has known diabetes. There is no reported thyroid disease. NEUROLOGIC: He has a history of Parkinson's disease. There is no reported seizures or passing out. MUSCULOSKELETAL: He has significant pain in the left lower extremity, is currently dressed. PHYSICAL EXAMINATION: VITAL SIGNS: This is an alert and oriented, appropriate, 77-year-old male in no acute distress. His last reported temperature today is 98.3, pulse 85, respiratory rate of 18, blood pressure 128/54. HEENT: Normocephalic, atraumatic. Hiller mucous membranes. NECK: Supple and soft. Trachea is midline. No JVD or thyromegaly. HEART: Has a regular rate and rhythm, the rate is currently controlled though. LUNGS: Clear bilaterally. ABDOMEN: Bowel sounds positive, soft. EXTREMITIES: Show positive radial pulses bilaterally. Positive dorsal pedal pulse on the right with limited evaluation on the left because of the dressing. He has good capillary refill in the left lower extremity. NEUROLOGIC: He has no acute findings. LABORATORY STUDIES: Today show white count 7.6, hemoglobin 9.7 after transfusion, platelet count is 148. Chemistry today shows BUN of 21, creatinine of 1.017. His liver enzymes show slight elevation in AST, which improved from previous. His troponin is 0.07. ASSESSMENT: 1. Compartment syndrome secondary to injury. 2. History of iatrogenic coagulopathy. 3. History of atrial fibrillation. 4. History of Parkinson's. PLAN: 1. The patient is seen and examined, the chart is reviewed. 2. Continue medical management per the primary service and Cardiology when this patient is appropriately optimized and Ortho. Return to the OR. We will evaluate the wound with the dressing change. Determine if he needs any further surgical intervention or if he needs to be managed conservatively. Butch Hartman DO DR: LINDA/gabby JOB# [id number] CC: Tom Kulkarni M.D.
--- NOTE | 2018-06-07 04:13 | PCM.EKG ---
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
[2018-06-07 05:29] LABS: BASOPHIL % 0.1 % (0.0-0.2); EOSINOPHIL # 0.2 10^3/uL (0.0-0.2); HEMOGLOBIN 9.5 g/dL (13.9-16.3); LYMPHOCYTES # 0.9 10^3/uL (1.0-4.8); LYMPHOCYTES % 11.2 % (24.0-44.0); MEAN CELL HGB 31.3 pg (26-34); MEAN CELL HGB CONCENTRATION 32.8 g/dL (33-37); MEAN CORP VOLUME 95.4 fL (78-100); MEAN PLATELET VOLUME 9.1 fL (7.8-11.0); MONOCYTES # 0.9 10^3/uL (0.3-0.8); MONOCYTES % 11.1 % (5.0-12.0); NEUTROPHIL # 5.9 10^3/uL (1.8-7.7); NEUTROPHILS % 74.5 % (41.0-85.0); RED CELL DISTRIBUTION WIDTH 17.1 % (11.5-14.5); WHITE BLOOD CELL 7.9 10^3/uL (4.5-11.0)
[2018-06-07 06:03] LABS: CALCIUM 8.4 mg/dL (8.4-10.5)
[2018-06-07] MEDS ORDERED: NEOSTIGMINE ONE (06:28)
[2018-06-07] MEDS ORDERED: ZOFRAN ONE (06:28)
[2018-06-07] MEDS ORDERED: DILAUDID ONE (06:29)
[2018-06-07] MEDS ORDERED: VERSED ONE (06:29)
[2018-06-07] MEDS ORDERED: DIPRIVAN IV ONE (06:29)
[2018-06-07] MEDS ORDERED: ZEMURON IV ONE (06:29)
[2018-06-07] MEDS ORDERED: SUBLIMAZE ONE (06:29)
[2018-06-07] MEDS ORDERED: LACTATED RINGERS 1,000 ML ONE (06:30)
[2018-06-07] MEDS ORDERED: LIDOCAINE 2% VIAL ONE (06:30)
[2018-06-07] MEDS ORDERED: NS 100ML 100 ML IV ONE ×2 (06:30→08:31)
[2018-06-07] MEDS ORDERED: NS 3000ML IRR IR ONE ×2 (07:02→10:10)
[2018-06-07] MEDS ORDERED: SODIUM CHLORIDE IR ONE (07:02)
[2018-06-07] MEDS ORDERED: NS 250ML 250 ML IV ONE (07:02)
--- NOTE | 2018-06-07 07:04 | PCM.EKG ---
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
--- NOTE | 2018-06-07 07:35 | PRM.PN ---
Subjective Subjective Date: Jun 07, 2018 Time: 07:30 Subjective Patient denies complaints. Plan to go to OR this AM for further debridement of wound. Pain controlled. Labs reviewed. Patient off Amio infusion. Patient History: No known health problems 32 MOTHER, , Age:87 19 CHILD 19 CHILD, , Age:27 19 CHILD, , Age:54 Parkinson's disease G8 BROTHER, , Age:81 No Family History of: Alzheimer's disease Asthma Cerebrovascular disorder Chronic obstructive pulmonary disease Congestive heart failure Diabetes insipidus Diabetes mellitus Hypertension VTE VTE Risk Total Score: 3 VTE Risk Score VTE Risk: Score 0-1 = Low Risk (Aggressive mobilization; early ambulation; no VTE prophylaxis required) Score 2: Moderate Risk (Intermittent/Pneumatic Compression Device OR Lovenox/Heparin/Coumadin) Score 3-4: High Risk (Intermittent/Pneumatic Compression Device AND Lovenox/Heparin/Coumadin) Score > or =5: Highest Risk (Intermittent/Pneumatic Compression Device AND Lovenox/Heparin/Coumadin) Review of Systems Allergies: Coded Allergies: morphine (Verified Allergy, Severe, HALLUCINATIONS, 10/27/16) codeine (Verified Allergy, Intermediate, 06/03/18) Scheduled Aspirin (Aspir 81), 1 TAB PO DAILY, (Reported) Carbidopa/Levodopa (Sinemet 25-100 Mg Tablet), 1 TAB PO TID, (Reported) Carvedilol 6.25MG (Coreg 6.25MG), 1 TAB PO BID, (Reported) Clonazepam (Clonazepam), 1 TAB PO TID, (Reported) Digoxin (Digitek), 125 MCG PO DAILY, (Reported) Metformin Hcl (Metformin Hcl Er), 1 TAB PO DAILY, (Reported) Pantoprazole Sodium (Protonix), 1 TAB PO BID, (Reported) Paroxetine Hcl (Paroxetine Hcl), 1 TAB PO HS, (Reported) Simvastatin (Simvastatin), 1 TAB PO HS, (Reported) Warfarin Sodium (Warfarin Sodium), 1 TAB PO DAILY, (Reported) Warfarin Sodium (Warfarin Sodium), 0.5 TAB PO DAILY, (Reported) Scheduled PRN Acetaminophen With Codeine (Tylenol With Codeine #4 Tablet), 1-2 EACH PO Q4 PRN for PAIN Objective Vitals and I/O Vital Sign - Last 24 Hours 06/03/18 06/03/18 06/03/18 06/03/18 14:09 14:14 14:18 14:23 Temp 98.9 98.9 98.9 98.9 Pulse 88 89 88 Resp 14 14 B/P (MAP) 115/52 (73) 84/36 (52) Pulse Ox 94 94 O2 Delivery Room Air Room Air 06/03/18 06/03/18 06/03/18 06/03/18 14:29 14:31 14:44 14:59 Pulse 85 81 82 B/P (MAP) 93/51 (65) Pulse Ox 96 88 92 06/03/18 06/03/18 06/03/18 06/03/18 15:14 15:27 15:29 15:48 Pulse 88 89 B/P (MAP) 105/61 (76) 156/90 (112) Pulse Ox 94 95 06/03/18 06/03/18 06/03/18 06/03/18 15:59 16:04 16:14 16:19 Pulse 92 97 B/P (MAP) 134/73 (93) 148/42 (77) 06/03/18 06/03/18 06/03/18 06/03/18 16:29 16:34 16:44 16:49 Pulse 82 99 B/P (MAP) 151/71 (97) 156/99 (118) 06/03/18 06/03/18 06/03/18 06/03/18 16:59 17:04 17:14 18:00 Temp 98.6 98.6 Pulse 92 87 109 Resp 14 B/P (MAP) 134/70 (91) 104/39 06/03/18 06/03/18 06/03/18 06/03/18 18:15 18:20 18:55 19:08 Temp 99.0 98.3 100.6 99.8 99.0 98.3 100.6 99.8 Pulse 70 108 122 90 Resp 14 14 18 18 B/P (MAP) 91/62 105/68 87/49 (62) 118/61 (80) Pulse Ox 97 95 O2 Delivery Non-Rebreather Room Air O2 Flow Rate 10 06/03/18 06/03/18 06/03/18 06/03/18 19:25 21:49 22:55 22:56 Temp 99.5 99.5 Pulse 92 80 Resp 18 18 16 B/P (MAP) 121/60 (80) Pulse Ox 97 97 97 O2 Delivery Room Air Nasal Cannula CPAP FiO2 30 06/03/18 06/03/18 06/04/18 06/04/18 22:56 23:40 01:27 04:30 Temp 97.8 97.8 Pulse 80 88 76 Resp 16 18 19 B/P (MAP) 107/63 (78) Pulse Ox 98 97 95 O2 Delivery C-Pap C-Pap C Pap CPAP FiO2 30 30 06/04/18 06/04/18 06/04/18 06/04/18 04:47 07:42 08:23 08:26 Temp 97.4 98.3 97.4 98.3 Pulse 68 72 72 Resp 30 20 B/P (MAP) 104/64 (77) 98/59 (72) 98/59 Pulse Ox 97 O2 Delivery C Pap Room Air Nasal Cannula O2 Flow Rate 2.00 06/04/18 06/04/18 06/04/18 10:01 10:15 11:56 Temp 98.1 98.1 Pulse 69 71 Resp 16 20 B/P (MAP) 100/53 (69) Pulse Ox 98 98 O2 Delivery Nasal Cannula Nasal Cannula O2 Flow Rate 2.00 2.00 FiO2 28 Intake and Output 06/03/18 06/03/18 06/04/18 15:00 23:00 07:00 Intake Total 9000 ml 200 ml Output Total 275 ml Balance 9000 ml -75 ml General: Alert, Oriented X3, Cooperative, No acute distress HEENT: Atraumatic, PERRLA, EOMI, Mucous membr. moist/pink Neck: Supple, No JVD Lungs: Clear to auscultation, Normal air movement Heart: Normal S1, Normal S2, No murmurs Abdomen: Normal bowel sounds, Soft, No tenderness, No masses Extremities: Normal pulses, Other (L LE wrapped, cleand dressed and dry.) Skin: No rashes Neuro: Normal gait, Normal speech, Strength at 5/5 X4 ext, Normal tone, Sensation intact, Cranial nerves 3-12 NL, Other (Moderate to severe resting parkinsonian tremor on RUE.) Psych/Mental Status: Mental status NL, Mood NL All Results(Lab/Rad) Laboratory Tests Test 06/03/18 14:40 06/04/18 05:26 White Blood Count 9.2 10^3/uL 9.7 10^3/uL Red Blood Count 3.48 10^6/uL 2.78 10^6/uL Hemoglobin 10.8 g/dL 8.5 g/dL Hematocrit 33.2 % 27.0 % Mean Corpuscular Volume 95.4 fL 97.1 fL Mean Corpuscular Hemoglobin 31.0 pg 30.6 pg Mean Corpuscular Hemoglobin Concent 32.5 g/dL 31.5 g/dL Red Cell Distribution Width 17.2 % 17.1 % Platelet Count 165 10^3/uL 145 10^3/uL Mean Platelet Volume 10.2 fL 10.4 fL Neutrophils (%) (Auto) 76.0 % Lymphocytes (%) (Auto) 12.2 % Monocytes (%) (Auto) 10.5 % Neutrophils # (Auto) 7.0 10^3/uL Lymphocytes # (Auto) 1.1 10^3/uL Monocytes # (Auto) 1.0 10^3/uL Absolute Immature Granulocyte (auto 0.01 10^3 u/L Eosinophils % 1.0 % Basophils % 0.2 % Basophils # 0.0 10^3/uL Eosinophil Count 0.1 10^3/uL Prothrombin Time 22.2 SEC Prothrombin Time INR (Non-Therap) 2.3 Activated Partial Thromboplast Time 37.4 SEC Sodium Level 141 mmol/L Potassium Level 4.3 mmol/L Chloride Level 105.0 mmol/L Carbon Dioxide Level 27.5 mmol/L Anion Gap 12.8 Blood Urea Nitrogen 25 mg/dL Creatinine 1.53 mg/dL Estimated GFR () 53.4 BUN/Creatinine Ratio 16.0 Glucose Level 125 mg/dL Calcium Level 8.6 mg/dL Total Bilirubin 0.9 mg/dL Aspartate Amino Transf (AST/SGOT) 60 U/L Alanine Aminotransferase (ALT/SGPT) 12 U/L Alkaline Phosphatase 58 U/L Total Protein 6.7 g/dL Albumin 3.5 g/dL Globulin 3.2 Percent Immature Gran (Cell Imm) 0.10 % Current Medications Medications (Trade) Dose Ordered Sig/Feliz Route PRN Reason Start Time Stop Time Status Last Admin Dose Admin Sodium Chloride 1,000 ml @ 1,200 mls/hr Q50M STAT IV 06/03/18 14:38 06/03/18 15:27 DC 06/03/18 14:53 Sodium Chloride (Sodium Chloride) 1,000 ml STK-MED ONCE IR 06/03/18 17:05 06/03/18 17:07 DC Sodium Chloride 1,000 ml @ ud STK-MED ONCE .ROUTE 06/03/18 17:21 06/03/18 17:23 DC Sodium Chloride 100 ml @ ud STK-MED ONCE IV 06/03/18 17:22 06/03/18 17:23 DC Dexamethasone Sodium Phosphate (Decadron) 4 mg STK-MED ONCE .ROUTE 06/03/18 17:22 06/03/18 17:23 DC Ondansetron HCl (Zofran) 4 mg STK-MED ONCE .ROUTE 06/03/18 17:22 06/03/18 17:23 DC Etomidate (Amidate) 40 mg STK-MED ONCE IV 06/03/18 17:22 06/03/18 17:23 DC Fentanyl Citrate (Sublimaze) 100 mcg STK-MED ONCE .ROUTE 06/03/18 17:22 06/03/18 17:24 DC Propofol (Diprivan) 200 mg STK-MED ONCE IV 06/03/18 17:22 06/03/18 17:24 DC Cefazolin Sodium (Ancef) 1 gm STK-MED ONCE .ROUTE 06/03/18 17:46 06/03/18 17:47 DC Sodium Chloride 250 ml @ ud STK-MED ONCE IV 06/03/18 17:46 06/03/18 17:47 DC Fentanyl Citrate (Sublimaze) 25 mcg Q5MIN PRN IV PAIN 06/03/18 19:30 06/03/18 22:40 DC Ondansetron HCl (Zofran) 4 mg PRN PRN IV nv 06/03/18 19:30 06/03/18 22:43 DC Diphenhydramine HCl (Benadryl) 25 mg Q5MIN PRN IV NAUSEA / VOMITING 06/03/18 19:30 06/03/18 22:34 DC Albuterol Sulfate (Ventolin) 2.5 mg OT PRN IH WHEEZING 06/03/18 19:30 06/03/18 22:42 DC Tramadol HCl (Ultram) 50 mg Q6H PRN PO MILD PAIN 06/03/18 19:30 07/03/18 19:29 Tramadol HCl (Ultram) 100 mg Q6H PRN PO SEVERE PAIN 06/03/18 19:30 07/03/18 19:29 06/04/18 06:22 Docusate Sodium (Colace) 100 mg DAILY PO 06/04/18 09:00 07/04/18 08:59 06/04/18 08:21 Throat Lozenges (Cepacol Sore Throat Lozenge) 1 each PRN PRN MM SORE THROAT 06/03/18 19:30 07/03/18 19:29 Famotidine (Pepcid) 20 mg DAILY PO 06/04/18 09:00 07/04/18 08:59 06/04/18 08:22 Cefazolin Sodium/ Dextrose (Ancef 2 Gm/D5W 50ml) 2 gm Q8 IV 06/03/18 22:00 06/04/18 14:01 06/04/18 06:21 Meperidine HCl (Demerol) 50 mg Q4HR PRN IV PAIN 06/03/18 19:30 07/03/18 19:29 06/03/18 20:01 Ondansetron HCl (Zofran) 4 mg Q4H PRN IV NAUSEA / VOMITING 06/03/18 19:30 07/03/18 19:29 Carbidopa/Levodopa (Sinemet 25/100) 1 each TID PO 06/03/18 21:00 07/03/18 20:59 06/04/18 08:21 Carvedilol (Coreg) 6.25 mg BID PO 06/03/18 21:00 07/03/18 20:59 Clonazepam (Klonopin) 0.5 mg TID PO 06/03/18 21:00 07/03/18 20:59 06/04/18 08:22 Digoxin (Lanoxin) 125 mcg DAILY PO 06/04/18 09:00 07/04/18 08:59 06/04/18 08:21 Pantoprazole Sodium (Protonix) 40 mg BID PO 06/03/18 21:00 07/03/18 20:59 06/04/18 08:22 Paroxetine HCl (Paxil) 20 mg HS PO 06/03/18 21:00 07/03/18 20:59 06/03/18 20:59 Simvastatin (Zocor) 20 mg HS PO 06/03/18 21:00 07/03/18 20:59 06/04/18 00:00 Metformin HCl (Glucophage Xr) 500 mg DAILY PO 06/04/18 09:00 07/04/18 08:59 Sodium Chloride 0 ml @ 999 mls/hr Q0M STAT IV 06/03/18 20:48 06/03/18 22:39 DC 06/03/18 20:48 Metoprolol Succinate (Toprol Xl) 25 mg STAT STAT PO 06/03/18 20:48 06/03/18 22:40 DC 06/03/18 21:05 Metoprolol Tartrate (Lopresser) 25 mg STK-MED ONCE .ROUTE 06/03/18 20:57 06/03/18 20:59 DC Cefazolin Sodium (Ancef) 1 gm STK-MED ONCE .ROUTE 06/03/18 23:49 06/03/18 23:51 DC Sodium Chloride 100 ml @ ud STK-MED ONCE IV 06/03/18 23:50 06/03/18 23:51 DC Cefazolin Sodium (Ancef) 1 gm STK-MED ONCE .ROUTE 06/04/18 06:15 06/04/18 06:16 DC Sodium Chloride 100 ml @ ud STK-MED ONCE IV 06/04/18 06:15 06/04/18 06:17 DC Course Sepsis Screening Results: Posi: POSITIVE Sepsis Qualifier/Stage: SEPSIS RISK Duration or Total Time Spent w: 60 mins Vitals & review Data Vital Sign - Last 24 Hours 06/03/18 06/03/18 06/03/18 06/03/18 14:09 14:14 14:18 14:23 Temp 98.9 98.9 98.9 98.9 Pulse 88 89 88 Resp 14 14 B/P (MAP) 115/52 (73) 84/36 (52) Pulse Ox 94 94 O2 Delivery Room Air Room Air 06/03/18 06/03/18 06/03/18 06/03/18 14:29 14:31 14:44 14:59 Pulse 85 81 82 B/P (MAP) 93/51 (65) Pulse Ox 96 88 92 06/03/18 06/03/18 06/03/18 06/03/18 15:14 15:27 15:29 15:48 Pulse 88 89 B/P (MAP) 105/61 (76) 156/90 (112) Pulse Ox 94 95 06/03/18 06/03/18 06/03/18 06/03/18 15:59 16:04 16:14 16:19 Pulse 92 97 B/P (MAP) 134/73 (93) 148/42 (77) 06/03/18 06/03/18 06/03/18 06/03/18 16:29 16:34 16:44 16:49 Pulse 82 99 B/P (MAP) 151/71 (97) 156/99 (118) 06/03/18 06/03/18 06/03/18 06/03/18 16:59 17:04 17:14 18:00 Temp 98.6 98.6 Pulse 92 87 109 Resp 14 B/P (MAP) 134/70 (91) 104/39 06/03/18 06/03/18 06/03/18 06/03/18 18:15 18:20 18:55 19:08 Temp 99.0 98.3 100.6 99.8 99.0 98.3 100.6 99.8 Pulse 70 108 122 90 Resp 14 14 18 18 B/P (MAP) 91/62 105/68 87/49 (62) 118/61 (80) Pulse Ox 97 95 O2 Delivery Non-Rebreather Room Air O2 Flow Rate 10 06/03/18 06/03/18 06/03/18 06/03/18 19:25 21:49 22:55 22:56 Temp 99.5 99.5 Pulse 92 80 Resp 18 18 16 B/P (MAP) 121/60 (80) Pulse Ox 97 97 97 O2 Delivery Room Air Nasal Cannula CPAP FiO2 30 06/03/18 06/03/18 06/04/18 06/04/18 22:56 23:40 01:27 04:30 Temp 97.8 97.8 Pulse 80 88 76 Resp 16 18 19 B/P (MAP) 107/63 (78) Pulse Ox 98 97 95 O2 Delivery C-Pap C-Pap C Pap CPAP FiO2 30 30 06/04/18 06/04/18 06/04/18 06/04/18 04:47 07:42 08:23 08:26 Temp 97.4 98.3 97.4 98.3 Pulse 68 72 72 Resp 30 20 B/P (MAP) 104/64 (77) 98/59 (72) 98/59 Pulse Ox 97 O2 Delivery C Pap Room Air Nasal Cannula O2 Flow Rate 2.00 06/04/18 06/04/18 06/04/18 10:01 10:15 11:56 Temp 98.1 98.1 Pulse 69 71 Resp 16 20 B/P (MAP) 100/53 (69) Pulse Ox 98 98 O2 Delivery Nasal Cannula Nasal Cannula O2 Flow Rate 2.00 2.00 FiO2 28 Intake and Output 06/03/18 06/03/18 06/04/18 15:00 23:00 07:00 Intake Total 9000 ml 200 ml Output Total 275 ml Balance 9000 ml -75 ml Laboratory Tests Test 06/03/18 14:40 06/04/18 05:26 White Blood Count 9.2 10^3/uL 9.7 10^3/uL Red Blood Count 3.48 10^6/uL 2.78 10^6/uL Hemoglobin 10.8 g/dL 8.5 g/dL Hematocrit 33.2 % 27.0 % Mean Corpuscular Volume 95.4 fL 97.1 fL Mean Corpuscular Hemoglobin 31.0 pg 30.6 pg Mean Corpuscular Hemoglobin Concent 32.5 g/dL 31.5 g/dL Red Cell Distribution Width 17.2 % 17.1 % Platelet Count 165 10^3/uL 145 10^3/uL Mean Platelet Volume 10.2 fL 10.4 fL Neutrophils (%) (Auto) 76.0 % Lymphocytes (%) (Auto) 12.2 % Monocytes (%) (Auto) 10.5 % Neutrophils # (Auto) 7.0 10^3/uL Lymphocytes # (Auto) 1.1 10^3/uL Monocytes # (Auto) 1.0 10^3/uL Absolute Immature Granulocyte (auto 0.01 10^3 u/L Eosinophils % 1.0 % Basophils % 0.2 % Basophils # 0.0 10^3/uL Eosinophil Count 0.1 10^3/uL Prothrombin Time 22.2 SEC Prothrombin Time INR (Non-Therap) 2.3 Activated Partial Thromboplast Time 37.4 SEC Sodium Level 141 mmol/L Potassium Level 4.3 mmol/L Chloride Level 105.0 mmol/L Carbon Dioxide Level 27.5 mmol/L Anion Gap 12.8 Blood Urea Nitrogen 25 mg/dL Creatinine 1.53 mg/dL Estimated GFR () 53.4 BUN/Creatinine Ratio 16.0 Glucose Level 125 mg/dL Calcium Level 8.6 mg/dL Total Bilirubin 0.9 mg/dL Aspartate Amino Transf (AST/SGOT) 60 U/L Alanine Aminotransferase (ALT/SGPT) 12 U/L Alkaline Phosphatase 58 U/L Total Protein 6.7 g/dL Albumin 3.5 g/dL Globulin 3.2 Percent Immature Gran (Cell Imm) 0.10 % Current Medications Medications (Trade) Dose Ordered Sig/Feliz PRN Reason Start Time Stop Time Status Last Admin Carbidopa/Levodopa (Sinemet 25/100) 1 each TID 06/03/18 21:00 07/03/18 20:59 06/04/18 08:21 Carvedilol (Coreg) 6.25 mg BID 06/03/18 21:00 07/03/18 20:59 Cefazolin Sodium/ Dextrose (Ancef 2 Gm/D5W 50ml) 2 gm Q8 06/03/18 22:00 06/04/18 14:01 06/04/18 06:21 Clonazepam (Klonopin) 0.5 mg TID 06/03/18 21:00 07/03/18 20:59 06/04/18 08:22 Digoxin (Lanoxin) 125 mcg DAILY 06/04/18 09:00 07/04/18 08:59 06/04/18 08:21 Docusate Sodium (Colace) 100 mg DAILY 06/04/18 09:00 07/04/18 08:59 06/04/18 08:21 Famotidine (Pepcid) 20 mg DAILY 06/04/18 09:00 07/04/18 08:59 06/04/18 08:22 Meperidine HCl (Demerol) 50 mg Q4HR PRN PAIN 06/03/18 19:30 07/03/18 19:29 06/03/18 20:01 Metformin HCl (Glucophage Xr) 500 mg DAILY 06/04/18 09:00 07/04/18 08:59 Ondansetron HCl (Zofran) 4 mg Q4H PRN NAUSEA / VOMITING 06/03/18 19:30 07/03/18 19:29 Pantoprazole Sodium (Protonix) 40 mg BID 06/03/18 21:00 07/03/18 20:59 06/04/18 08:22 Paroxetine HCl (Paxil) 20 mg HS 06/03/18 21:00 07/03/18 20:59 06/03/18 20:59 Simvastatin (Zocor) 20 mg HS 06/03/18 21:00 07/03/18 20:59 06/04/18 00:00 Throat Lozenges (Cepacol Sore Throat Lozenge) 1 each PRN PRN SORE THROAT 06/03/18 19:30 07/03/18 19:29 Tramadol HCl (Ultram) 50 mg Q6H PRN MILD PAIN 06/03/18 19:30 07/03/18 19:29 Tramadol HCl (Ultram) 100 mg Q6H PRN SEVERE PAIN 06/03/18 19:30 07/03/18 19:29 06/04/18 06:22 Sepsis Infection Criteria Pres: Suspected Infection LEVEL 1 SEPSIS INFECTION CRITE: ABX Therapy, Recent Invasive Procedure LEVEL 2-SIRS (LIST ALL THAT AP: None/Not assessed Cardiovascular Evidence: Not Assessed or None Hematologic Evidence: None/Not assessed Hepatic Evidence: Elevated AST(SGOT)>72 Metabolic Evidence: None/Not assessed Neurological Evidence: None/Not assessed Respiratory Evidence: Need for O2 to keep>90%, O2 SAT<90room air Renal Evidence: None/Not assessed O2 Sat by Pulse Oximetry: 97 Oxygen Flow Rate: 1.00 Assessment/Plan Assessment/Plan Assessment/Plan Patient is a 77 M PMH of Parkinson's Disease, DM, Chronic Afib presents with LLE Compartment syndrome. Plan 1.) L Lower Leg Compartment Syndrome - POD 3 fasciotomy. OR this AM for further debridement. Ortho managing. 2.) L LE Hematoma - Secondary to fall. Holding anticoagulation. 3.) Coagulopathy: holding all anticoagulation currently. INR wnl. 4.) Anemia - Hg stable. Will check daily CBC. 5.) Chronic Afib- Amio infusion d/c. PO amio currently. Holding anticoagulation. 6.) Acute Renal Insuff - Cr/GFR stable. Avoid Nephrotoxic agents. 7.) End-Stage Parkinson's Disease - cont PT/OT. 8. PPx: PPI and Pepcid, no VTE currently 2/2 Compartment syndrome and Anemia. 9. DM: cont PO oral hypoglycemics JATIN LOTT MD Jun 07, 2018 07:35
[2018-06-07] MEDS ORDERED: NS 1000ML 1,000 ML ONE (07:37)
[2018-06-07] MEDS ORDERED: ANCEF ONE (08:31)
[2018-06-07] MEDS ORDERED: TRANDATE IV PRN (09:30)
[2018-06-07] MEDS ORDERED: DILAUDID IV PRN (09:30)
[2018-06-07] MEDS ORDERED: APRESOLINE IV PRN (09:30)
[2018-06-07] MEDS ORDERED: SUBLIMAZE IV PRN (09:30)
[2018-06-07] MEDS ORDERED: ZOFRAN IV PRN (09:30)
[2018-06-07] MEDS ORDERED: PHENERGAN IV PRN (09:30)
[2018-06-07] MEDS: COREG PO SCH ×2 (10:20→22:02)
[2018-06-07] MEDS: COLACE PO SCH (10:20)
[2018-06-07] MEDS: CORDARONE PO SCH ×2 (10:21→22:05)
[2018-06-07] MEDS: FIBERCON PO SCH (10:21)
[2018-06-07] MEDS: GLUCOPHAGE XR PO SCH (10:21)
[2018-06-07] MEDS: KLONOPIN PO SCH ×3 (10:22→22:03)
[2018-06-07] MEDS: LANOXIN PO SCH (10:23)
[2018-06-07] MEDS: PROTONIX PO SCH (10:23)
[2018-06-07] MEDS: PEPCID PO SCH (10:23)
[2018-06-07] MEDS: SINEMET 25/100 PO SCH ×3 (10:24→22:03)
[2018-06-07] MEDS: ALTACE PO SCH ×2 (11:11→22:00)
[2018-06-07] MEDS: NS 1000ML/KCL 20MEQ 1,000 ML IV SCH (11:12)
--- NOTE | 2018-06-07 11:15 | OPH ---
DATE OF SURGERY: 06/07/2018 PREOPERATIVE DIAGNOSIS: Status post fasciotomy of the medial and lateral aspect of the left lower leg. POSTOPERATIVE DIAGNOSIS: Status post fasciotomy of the medial and lateral aspect of the left lower leg. OPERATIVE PROCEDURE: 1. I and D with wound closure of the medial wound of the left leg that was approximately 20 cm in length and 3.5 cm in width. 2. Debridement of skin and subcutaneous tissue using a 10 blade as well as a Versajet system at the lateral wound of the left lower leg. SURGEON: Oseas Calle MD ANESTHESIA: LMA. TOURNIQUET TIME: None. BLOOD LOSS: 30 mL. DESCRIPTION OF INDICATIONS: The patient is a 77-year-old male who is approximately 3 days status post I and D for a compartment syndrome of the left lower leg. The patient was taken to the operating room today for irrigation and debridement of his wound with possible wound closure. DESCRIPTION OF PROCEDURE: The patient was placed on the operating table in the supine position. LMA anesthetic was induced without difficulty. The patient had the left lower extremity sterilely prepped and draped. The lateral wound was clean and was approximately 20 cm in length and about 3 cm in width. The muscle tissue was clean. There were no signs of infection. No redness or purulent drainage. We used an irrigation to clean the wound. Any nonviable tissue was debrided with a #10 blade. The wound was then reapproximated with #2 Prolene in an interrupted manner as well as juan ramon. The fascia was left open. The subcutaneous area was not closed. There was good approximation of the skin edges without any excessive tension on the skin. On the lateral wound, the patient had some areas of full thickness necrosis about the anterolateral portion of the wound. The Pulsavac was used to irrigate and debride the lateral wound, which was 25 cm in length and initially about 5 cm in width. There was a fairly large area on the anterolateral portion of the wound where the skin had full thickness necrosis and was totally black. This area was debrided in an elliptical manner. On the posterior skin edge, there were some areas that appeared to be superficial skin thickness loss. These were debrided with a Versajet debriding basically the skin only. At the end, the wound on the lateral side was 25 cm in length, 9 cm in width and 0.5 cm in depth. The wound was clean laterally. No purulent material. The proximal muscle stimulated with the Bovie had good contraction. The distal portion of the lateral muscles had questionable contraction, but the muscle bellies appeared to be well perfused and appeared healthy. The wound was then dressed with Adaptic, 4 x 4s, cast padding and an Ronaldo wrap. He was extubated in the operating room, sent to recovery in stable condition. Oseas Calle MD DR: ANILA/gabby JOB# [id number]
[2018-06-07] MEDS: ULTRAM PO PRN ×2 (12:14→18:11)
--- NOTE | 2018-06-07 13:29 | PNH ---
DATE: 06/06/2018 A 77-year-old. SUBJECTIVE: The patient was transferred yesterday afternoon because his blood pressure was low and was given fluids and he had atrial flutter/fibrillation with rapid ventricular response and device check showed that he had a biventricular pacer ICD and he was V tracking and his rate was fast and he has a chronic systolic heart failure along with Parkinson's disease and hematoma in the right leg after a fall and fasciotomy was being considered, but at the present time, the patient seems to be high risk for surgery because of congestive heart failure and CAD and prior stenting with 30% ejection fraction with atrial flutter/fibrillation with rapid ventricular response and rate needs to be controlled and anticoagulants were held. He was started on IV amiodarone and today on 06/06/2018, his rate is under controlled and he is overall much better. OBJECTIVE: VITAL SIGNS: Shows a pulse of 86, respiration 20, blood pressure 128/90, saturation 95. Intake and output shows that he had aggressive diuresis yesterday of 1850 with a negative balance of 1095 and he has already had 3000 mL out today. LABORATORY DATA: Showed that hemoglobin came up from 7.3 to 9.7. Two units of packed cell were given and chemistries were normal. BUN 21, creatinine 1.17. Mild elevation of SGOT to 78. Chest x-ray was unremarkable. Echo showed multi-segmental wall motion abnormality, 30% ejection fraction. PLAN: At this time, we will continue present therapy. Rate control is being achieved and we will talk to Dr. Calle and see if he wants to undergo surgery for the hematoma. If the hematoma is stable, may start him on anticoagulation from 06/07/2018. Laxmichand MD Aj DR: MARITZA/gabby JOB# [id number]
--- NOTE | 2018-06-07 13:50 | ECHO ---
DATE OF SERVICE: 06/05/2018 DIAGNOSES: A 77-year-old with congestive heart failure, ischemic cardiomyopathy, post biventricular pacer ICD, atrial flutter/fibrillation. Assess LV function. FINDINGS: Mitral valve shows mitral annular calcification and mitral regurgitation with a velocity of 3.4 meters with 2+ mitral regurgitation with absence of AV flutter/fibrillation noted. Aortic sclerosis with an aortic incompetence with a pressure half time of 500 milliseconds and mild gradient across the aorta about 6 mm with an aortic valve area of 1.53 square cm with mild aortic stenosis and significant aortic sclerosis and tricuspid regurgitation of 2.7 meters velocity. Right ventricle is top normal size 3.1 cm. Right atrium is enlarged to 5.94 cm, left atrium is enlarged to 5.89 cm with left atrial volume of 73 mL and left ventricle is normal in size around 4.23 cm, end diastolic dimension with 3.51 cm, end-systolic dimension with left ventricular hypertrophy of global nature with posterior wall being thicker than the septum, but overall concentric left ventricular hypertrophy. Septum appears to be paradoxical due to bundle branch block and global hypokinesis with an ejection fraction of 30%, increased end diastolic volume to 173 mL noted. No thrombus in any of the cardiac chambers. Laxmichand MD Aj DR: MARITZA/gabby JOB# [id number]
[2018-06-07] MEDS ORDERED: LANOLIN HYDROUS TP ONE (18:24)
[2018-06-07] MEDS: LIPITOR PO SCH ×2 (21:00→22:02)
[2018-06-07] MEDS: PAXIL PO SCH (22:02)
[2018-06-08] VITALS (51 sets, daily range): BP systolic 90–145; BP diastolic 34–121
[2018-06-08] MEDS ORDERED: TYLENOL ONE (01:03)
[2018-06-08] MEDS: NS 1000ML/KCL 20MEQ 1,000 ML IV SCH ×2 (01:12→16:24)
[2018-06-08] MEDS: ANCEF 1 GM in NS 100ML 100 ML IV SCH ×3 (01:12→16:44)
[2018-06-08] MEDS: TYLENOL PO PRN ×2 (01:19→21:39)
[2018-06-08] MEDS ORDERED: TYLENOL PO PRN (01:30)
[2018-06-08 05:07] LABS: BASOPHIL % 0.1 % (0.0-0.2); EOSINOPHIL # 0.2 10^3/uL (0.0-0.2); EOSINOPHIL % 2.8 % (0.0-5.0); LYMPHOCYTES # 0.6 10^3/uL (1.0-4.8); LYMPHOCYTES % 8.5 % (24.0-44.0); MEAN CELL HGB 30.6 pg (26-34); MEAN CELL HGB CONCENTRATION 31.7 g/dL (33-37); MEAN CORP VOLUME 96.6 fL (78-100); MEAN PLATELET VOLUME 9.7 fL (7.8-11.0); MONOCYTES # 0.9 10^3/uL (0.3-0.8); MONOCYTES % 11.8 % (5.0-12.0); NEUTROPHIL # 5.8 10^3/uL (1.8-7.7); NEUTROPHILS % 76.7 % (41.0-85.0); RED CELL DISTRIBUTION WIDTH 16.9 % (11.5-14.5); WHITE BLOOD CELL 7.5 10^3/uL (4.5-11.0)
[2018-06-08 05:25] LABS: CARBON DIOXIDE 27.4 mmol/L (20.0-32)
[2018-06-08 05:26] LABS: CALCIUM 8.3 mg/dL (8.4-10.5)
--- NOTE | 2018-06-08 07:04 | PNH ---
DATE: 06/07/2018 Subjectively, the patient underwent evacuation of the hematoma in the right leg and he is not on any anticoagulation and post-hematoma evacuation. He is alert, awake, oriented and anesthesia effect has worn off and his vital signs are stable with 97 temperature and 75 pulse and atrial flutter/fibrillation with controlled ventricular response, respirations 18 and 112/50 blood pressure, ____ saturation on 2 liters nasal cannula and urine output is good 1690. He has been in overall positive balance after he came back from surgery almost 6000 mL and he has had congestive heart failure with 30% ejection fraction. His hemoglobin is 9.5 today and chemistries are acceptable, BUN 17, creatinine 1.02. Low protein and albumin, 6723 proBNP. Overall on clinical evaluation, his saturation ____. No JVD. Lungs show improved air entry. Heart sounds normal, atrial flutter/fibrillation, controlled ventricular response and probably he is now more in the intermittent biventricular paced rhythm. We will continue present therapy and we will probably start him on anticoagulation Xarelto from 06/08/2018. Laxmichand MD Aj DR: MARITZA/gabby JOB# [id number]
--- NOTE | 2018-06-08 08:03 | PRM.PN ---
Subjective Subjective Date: Jun 08, 2018 Time: 08:00 Subjective Pain controlled. Labs reviewed. Patient did have fever overnight. Patient will have Wound Vac today. Patient clinically feeling better. Patient History: No known health problems 32 MOTHER, , Age:87 19 CHILD 19 CHILD, , Age:27 19 CHILD, , Age:54 Parkinson's disease G8 BROTHER, , Age:81 No Family History of: Alzheimer's disease Asthma Cerebrovascular disorder Chronic obstructive pulmonary disease Congestive heart failure Diabetes insipidus Diabetes mellitus Hypertension VTE VTE Risk Total Score: 3 VTE Risk Score VTE Risk: Score 0-1 = Low Risk (Aggressive mobilization; early ambulation; no VTE prophylaxis required) Score 2: Moderate Risk (Intermittent/Pneumatic Compression Device OR Lovenox/Heparin/Coumadin) Score 3-4: High Risk (Intermittent/Pneumatic Compression Device AND Lovenox/Heparin/Coumadin) Score > or =5: Highest Risk (Intermittent/Pneumatic Compression Device AND Lovenox/Heparin/Coumadin) Review of Systems Allergies: Coded Allergies: morphine (Verified Allergy, Severe, HALLUCINATIONS, 10/27/16) codeine (Verified Allergy, Intermediate, 06/03/18) Scheduled Aspirin (Aspir 81), 1 TAB PO DAILY, (Reported) Carbidopa/Levodopa (Sinemet 25-100 Mg Tablet), 1 TAB PO TID, (Reported) Carvedilol 6.25MG (Coreg 6.25MG), 1 TAB PO BID, (Reported) Clonazepam (Clonazepam), 1 TAB PO TID, (Reported) Digoxin (Digitek), 125 MCG PO DAILY, (Reported) Metformin Hcl (Metformin Hcl Er), 1 TAB PO DAILY, (Reported) Pantoprazole Sodium (Protonix), 1 TAB PO BID, (Reported) Paroxetine Hcl (Paroxetine Hcl), 1 TAB PO HS, (Reported) Simvastatin (Simvastatin), 1 TAB PO HS, (Reported) Warfarin Sodium (Warfarin Sodium), 1 TAB PO DAILY, (Reported) Warfarin Sodium (Warfarin Sodium), 0.5 TAB PO DAILY, (Reported) Scheduled PRN Acetaminophen With Codeine (Tylenol With Codeine #4 Tablet), 1-2 EACH PO Q4 PRN for PAIN Objective Vitals and I/O Vital Sign - Last 24 Hours 06/03/18 06/03/18 06/03/18 06/03/18 14:09 14:14 14:18 14:23 Temp 98.9 98.9 98.9 98.9 Pulse 88 89 88 Resp 14 14 B/P (MAP) 115/52 (73) 84/36 (52) Pulse Ox 94 94 O2 Delivery Room Air Room Air 06/03/18 06/03/18 06/03/18 06/03/18 14:29 14:31 14:44 14:59 Pulse 85 81 82 B/P (MAP) 93/51 (65) Pulse Ox 96 88 92 06/03/18 06/03/18 06/03/18 06/03/18 15:14 15:27 15:29 15:48 Pulse 88 89 B/P (MAP) 105/61 (76) 156/90 (112) Pulse Ox 94 95 06/03/18 06/03/18 06/03/18 06/03/18 15:59 16:04 16:14 16:19 Pulse 92 97 B/P (MAP) 134/73 (93) 148/42 (77) 06/03/18 06/03/18 06/03/18 06/03/18 16:29 16:34 16:44 16:49 Pulse 82 99 B/P (MAP) 151/71 (97) 156/99 (118) 06/03/18 06/03/18 06/03/18 06/03/18 16:59 17:04 17:14 18:00 Temp 98.6 98.6 Pulse 92 87 109 Resp 14 B/P (MAP) 134/70 (91) 104/39 06/03/18 06/03/18 06/03/18 06/03/18 18:15 18:20 18:55 19:08 Temp 99.0 98.3 100.6 99.8 99.0 98.3 100.6 99.8 Pulse 70 108 122 90 Resp 14 14 18 18 B/P (MAP) 91/62 105/68 87/49 (62) 118/61 (80) Pulse Ox 97 95 O2 Delivery Non-Rebreather Room Air O2 Flow Rate 10 06/03/18 06/03/18 06/03/18 06/03/18 19:25 21:49 22:55 22:56 Temp 99.5 99.5 Pulse 92 80 Resp 18 18 16 B/P (MAP) 121/60 (80) Pulse Ox 97 97 97 O2 Delivery Room Air Nasal Cannula CPAP FiO2 30 06/03/18 06/03/18 06/04/18 06/04/18 22:56 23:40 01:27 04:30 Temp 97.8 97.8 Pulse 80 88 76 Resp 16 18 19 B/P (MAP) 107/63 (78) Pulse Ox 98 97 95 O2 Delivery C-Pap C-Pap C Pap CPAP FiO2 30 30 06/04/18 06/04/18 06/04/18 06/04/18 04:47 07:42 08:23 08:26 Temp 97.4 98.3 97.4 98.3 Pulse 68 72 72 Resp 30 20 B/P (MAP) 104/64 (77) 98/59 (72) 98/59 Pulse Ox 97 O2 Delivery C Pap Room Air Nasal Cannula O2 Flow Rate 2.00 06/04/18 06/04/18 06/04/18 10:01 10:15 11:56 Temp 98.1 98.1 Pulse 69 71 Resp 16 20 B/P (MAP) 100/53 (69) Pulse Ox 98 98 O2 Delivery Nasal Cannula Nasal Cannula O2 Flow Rate 2.00 2.00 FiO2 28 Intake and Output 06/03/18 06/03/18 06/04/18 15:00 23:00 07:00 Intake Total 9000 ml 200 ml Output Total 275 ml Balance 9000 ml -75 ml General: Alert, Oriented X3, Cooperative, No acute distress HEENT: Atraumatic, PERRLA, EOMI, Mucous membr. moist/pink Neck: Supple, No JVD Lungs: Clear to auscultation, Normal air movement Heart: Normal S1, Normal S2, No murmurs Abdomen: Normal bowel sounds, Soft, No tenderness, No masses Extremities: Normal pulses, Other (L LE wrapped, cleand dressed and dry.) Skin: No rashes Neuro: Normal gait, Normal speech, Strength at 5/5 X4 ext, Normal tone, Sensation intact, Cranial nerves 3-12 NL, Other (Moderate to severe resting parkinsonian tremor on RUE.) Psych/Mental Status: Mental status NL, Mood NL All Results(Lab/Rad) Laboratory Tests Test 06/03/18 14:40 06/04/18 05:26 White Blood Count 9.2 10^3/uL 9.7 10^3/uL Red Blood Count 3.48 10^6/uL 2.78 10^6/uL Hemoglobin 10.8 g/dL 8.5 g/dL Hematocrit 33.2 % 27.0 % Mean Corpuscular Volume 95.4 fL 97.1 fL Mean Corpuscular Hemoglobin 31.0 pg 30.6 pg Mean Corpuscular Hemoglobin Concent 32.5 g/dL 31.5 g/dL Red Cell Distribution Width 17.2 % 17.1 % Platelet Count 165 10^3/uL 145 10^3/uL Mean Platelet Volume 10.2 fL 10.4 fL Neutrophils (%) (Auto) 76.0 % Lymphocytes (%) (Auto) 12.2 % Monocytes (%) (Auto) 10.5 % Neutrophils # (Auto) 7.0 10^3/uL Lymphocytes # (Auto) 1.1 10^3/uL Monocytes # (Auto) 1.0 10^3/uL Absolute Immature Granulocyte (auto 0.01 10^3 u/L Eosinophils % 1.0 % Basophils % 0.2 % Basophils # 0.0 10^3/uL Eosinophil Count 0.1 10^3/uL Prothrombin Time 22.2 SEC Prothrombin Time INR (Non-Therap) 2.3 Activated Partial Thromboplast Time 37.4 SEC Sodium Level 141 mmol/L Potassium Level 4.3 mmol/L Chloride Level 105.0 mmol/L Carbon Dioxide Level 27.5 mmol/L Anion Gap 12.8 Blood Urea Nitrogen 25 mg/dL Creatinine 1.53 mg/dL Estimated GFR () 53.4 BUN/Creatinine Ratio 16.0 Glucose Level 125 mg/dL Calcium Level 8.6 mg/dL Total Bilirubin 0.9 mg/dL Aspartate Amino Transf (AST/SGOT) 60 U/L Alanine Aminotransferase (ALT/SGPT) 12 U/L Alkaline Phosphatase 58 U/L Total Protein 6.7 g/dL Albumin 3.5 g/dL Globulin 3.2 Percent Immature Gran (Cell Imm) 0.10 % Current Medications Medications (Trade) Dose Ordered Sig/Feliz Route PRN Reason Start Time Stop Time Status Last Admin Dose Admin Sodium Chloride 1,000 ml @ 1,200 mls/hr Q50M STAT IV 06/03/18 14:38 06/03/18 15:27 DC 06/03/18 14:53 Sodium Chloride (Sodium Chloride) 1,000 ml STK-MED ONCE IR 06/03/18 17:05 06/03/18 17:07 DC Sodium Chloride 1,000 ml @ ud STK-MED ONCE .ROUTE 06/03/18 17:21 06/03/18 17:23 DC Sodium Chloride 100 ml @ ud STK-MED ONCE IV 06/03/18 17:22 06/03/18 17:23 DC Dexamethasone Sodium Phosphate (Decadron) 4 mg STK-MED ONCE .ROUTE 06/03/18 17:22 06/03/18 17:23 DC Ondansetron HCl (Zofran) 4 mg STK-MED ONCE .ROUTE 06/03/18 17:22 06/03/18 17:23 DC Etomidate (Amidate) 40 mg STK-MED ONCE IV 06/03/18 17:22 06/03/18 17:23 DC Fentanyl Citrate (Sublimaze) 100 mcg STK-MED ONCE .ROUTE 06/03/18 17:22 06/03/18 17:24 DC Propofol (Diprivan) 200 mg STK-MED ONCE IV 06/03/18 17:22 06/03/18 17:24 DC Cefazolin Sodium (Ancef) 1 gm STK-MED ONCE .ROUTE 06/03/18 17:46 06/03/18 17:47 DC Sodium Chloride 250 ml @ ud STK-MED ONCE IV 06/03/18 17:46 06/03/18 17:47 DC Fentanyl Citrate (Sublimaze) 25 mcg Q5MIN PRN IV PAIN 06/03/18 19:30 06/03/18 22:40 DC Ondansetron HCl (Zofran) 4 mg PRN PRN IV nv 06/03/18 19:30 06/03/18 22:43 DC Diphenhydramine HCl (Benadryl) 25 mg Q5MIN PRN IV NAUSEA / VOMITING 06/03/18 19:30 06/03/18 22:34 DC Albuterol Sulfate (Ventolin) 2.5 mg OT PRN IH WHEEZING 06/03/18 19:30 06/03/18 22:42 DC Tramadol HCl (Ultram) 50 mg Q6H PRN PO MILD PAIN 06/03/18 19:30 07/03/18 19:29 Tramadol HCl (Ultram) 100 mg Q6H PRN PO SEVERE PAIN 06/03/18 19:30 07/03/18 19:29 06/04/18 06:22 Docusate Sodium (Colace) 100 mg DAILY PO 06/04/18 09:00 07/04/18 08:59 06/04/18 08:21 Throat Lozenges (Cepacol Sore Throat Lozenge) 1 each PRN PRN MM SORE THROAT 06/03/18 19:30 07/03/18 19:29 Famotidine (Pepcid) 20 mg DAILY PO 06/04/18 09:00 07/04/18 08:59 06/04/18 08:22 Cefazolin Sodium/ Dextrose (Ancef 2 Gm/D5W 50ml) 2 gm Q8 IV 06/03/18 22:00 06/04/18 14:01 06/04/18 06:21 Meperidine HCl (Demerol) 50 mg Q4HR PRN IV PAIN 06/03/18 19:30 07/03/18 19:29 06/03/18 20:01 Ondansetron HCl (Zofran) 4 mg Q4H PRN IV NAUSEA / VOMITING 06/03/18 19:30 07/03/18 19:29 Carbidopa/Levodopa (Sinemet 25/100) 1 each TID PO 06/03/18 21:00 07/03/18 20:59 06/04/18 08:21 Carvedilol (Coreg) 6.25 mg BID PO 06/03/18 21:00 07/03/18 20:59 Clonazepam (Klonopin) 0.5 mg TID PO 06/03/18 21:00 07/03/18 20:59 06/04/18 08:22 Digoxin (Lanoxin) 125 mcg DAILY PO 06/04/18 09:00 07/04/18 08:59 06/04/18 08:21 Pantoprazole Sodium (Protonix) 40 mg BID PO 06/03/18 21:00 07/03/18 20:59 06/04/18 08:22 Paroxetine HCl (Paxil) 20 mg HS PO 06/03/18 21:00 07/03/18 20:59 06/03/18 20:59 Simvastatin (Zocor) 20 mg HS PO 06/03/18 21:00 07/03/18 20:59 06/04/18 00:00 Metformin HCl (Glucophage Xr) 500 mg DAILY PO 06/04/18 09:00 07/04/18 08:59 Sodium Chloride 0 ml @ 999 mls/hr Q0M STAT IV 06/03/18 20:48 06/03/18 22:39 DC 06/03/18 20:48 Metoprolol Succinate (Toprol Xl) 25 mg STAT STAT PO 06/03/18 20:48 06/03/18 22:40 DC 06/03/18 21:05 Metoprolol Tartrate (Lopresser) 25 mg STK-MED ONCE .ROUTE 06/03/18 20:57 06/03/18 20:59 DC Cefazolin Sodium (Ancef) 1 gm STK-MED ONCE .ROUTE 06/03/18 23:49 06/03/18 23:51 DC Sodium Chloride 100 ml @ ud STK-MED ONCE IV 06/03/18 23:50 06/03/18 23:51 DC Cefazolin Sodium (Ancef) 1 gm STK-MED ONCE .ROUTE 06/04/18 06:15 06/04/18 06:16 DC Sodium Chloride 100 ml @ ud STK-MED ONCE IV 06/04/18 06:15 06/04/18 06:17 DC Course Sepsis Screening Results: Posi: POSITIVE Sepsis Qualifier/Stage: SEPSIS RISK Duration or Total Time Spent w: 60 mins Vitals & review Data Vital Sign - Last 24 Hours 06/03/18 06/03/18 06/03/18 06/03/18 14:09 14:14 14:18 14:23 Temp 98.9 98.9 98.9 98.9 Pulse 88 89 88 Resp 14 14 B/P (MAP) 115/52 (73) 84/36 (52) Pulse Ox 94 94 O2 Delivery Room Air Room Air 06/03/18 06/03/18 06/03/18 06/03/18 14:29 14:31 14:44 14:59 Pulse 85 81 82 B/P (MAP) 93/51 (65) Pulse Ox 96 88 92 06/03/18 06/03/18 06/03/18 06/03/18 15:14 15:27 15:29 15:48 Pulse 88 89 B/P (MAP) 105/61 (76) 156/90 (112) Pulse Ox 94 95 06/03/18 06/03/18 06/03/18 06/03/18 15:59 16:04 16:14 16:19 Pulse 92 97 B/P (MAP) 134/73 (93) 148/42 (77) 06/03/18 06/03/18 06/03/18 06/03/18 16:29 16:34 16:44 16:49 Pulse 82 99 B/P (MAP) 151/71 (97) 156/99 (118) 06/03/18 06/03/18 06/03/18 06/03/18 16:59 17:04 17:14 18:00 Temp 98.6 98.6 Pulse 92 87 109 Resp 14 B/P (MAP) 134/70 (91) 104/39 06/03/18 06/03/18 06/03/18 06/03/18 18:15 18:20 18:55 19:08 Temp 99.0 98.3 100.6 99.8 99.0 98.3 100.6 99.8 Pulse 70 108 122 90 Resp 14 14 18 18 B/P (MAP) 91/62 105/68 87/49 (62) 118/61 (80) Pulse Ox 97 95 O2 Delivery Non-Rebreather Room Air O2 Flow Rate 10 06/03/18 06/03/18 06/03/18 06/03/18 19:25 21:49 22:55 22:56 Temp 99.5 99.5 Pulse 92 80 Resp 18 18 16 B/P (MAP) 121/60 (80) Pulse Ox 97 97 97 O2 Delivery Room Air Nasal Cannula CPAP FiO2 30 06/03/18 06/03/18 06/04/18 06/04/18 22:56 23:40 01:27 04:30 Temp 97.8 97.8 Pulse 80 88 76 Resp 16 18 19 B/P (MAP) 107/63 (78) Pulse Ox 98 97 95 O2 Delivery C-Pap C-Pap C Pap CPAP FiO2 30 30 06/04/18 06/04/18 06/04/18 06/04/18 04:47 07:42 08:23 08:26 Temp 97.4 98.3 97.4 98.3 Pulse 68 72 72 Resp 30 20 B/P (MAP) 104/64 (77) 98/59 (72) 98/59 Pulse Ox 97 O2 Delivery C Pap Room Air Nasal Cannula O2 Flow Rate 2.00 06/04/18 06/04/18 06/04/18 10:01 10:15 11:56 Temp 98.1 98.1 Pulse 69 71 Resp 16 20 B/P (MAP) 100/53 (69) Pulse Ox 98 98 O2 Delivery Nasal Cannula Nasal Cannula O2 Flow Rate 2.00 2.00 FiO2 28 Intake and Output 06/03/18 06/03/18 06/04/18 15:00 23:00 07:00 Intake Total 9000 ml 200 ml Output Total 275 ml Balance 9000 ml -75 ml Laboratory Tests Test 06/03/18 14:40 06/04/18 05:26 White Blood Count 9.2 10^3/uL 9.7 10^3/uL Red Blood Count 3.48 10^6/uL 2.78 10^6/uL Hemoglobin 10.8 g/dL 8.5 g/dL Hematocrit 33.2 % 27.0 % Mean Corpuscular Volume 95.4 fL 97.1 fL Mean Corpuscular Hemoglobin 31.0 pg 30.6 pg Mean Corpuscular Hemoglobin Concent 32.5 g/dL 31.5 g/dL Red Cell Distribution Width 17.2 % 17.1 % Platelet Count 165 10^3/uL 145 10^3/uL Mean Platelet Volume 10.2 fL 10.4 fL Neutrophils (%) (Auto) 76.0 % Lymphocytes (%) (Auto) 12.2 % Monocytes (%) (Auto) 10.5 % Neutrophils # (Auto) 7.0 10^3/uL Lymphocytes # (Auto) 1.1 10^3/uL Monocytes # (Auto) 1.0 10^3/uL Absolute Immature Granulocyte (auto 0.01 10^3 u/L Eosinophils % 1.0 % Basophils % 0.2 % Basophils # 0.0 10^3/uL Eosinophil Count 0.1 10^3/uL Prothrombin Time 22.2 SEC Prothrombin Time INR (Non-Therap) 2.3 Activated Partial Thromboplast Time 37.4 SEC Sodium Level 141 mmol/L Potassium Level 4.3 mmol/L Chloride Level 105.0 mmol/L Carbon Dioxide Level 27.5 mmol/L Anion Gap 12.8 Blood Urea Nitrogen 25 mg/dL Creatinine 1.53 mg/dL Estimated GFR () 53.4 BUN/Creatinine Ratio 16.0 Glucose Level 125 mg/dL Calcium Level 8.6 mg/dL Total Bilirubin 0.9 mg/dL Aspartate Amino Transf (AST/SGOT) 60 U/L Alanine Aminotransferase (ALT/SGPT) 12 U/L Alkaline Phosphatase 58 U/L Total Protein 6.7 g/dL Albumin 3.5 g/dL Globulin 3.2 Percent Immature Gran (Cell Imm) 0.10 % Current Medications Medications (Trade) Dose Ordered Sig/Feliz PRN Reason Start Time Stop Time Status Last Admin Carbidopa/Levodopa (Sinemet 25/100) 1 each TID 06/03/18 21:00 07/03/18 20:59 06/04/18 08:21 Carvedilol (Coreg) 6.25 mg BID 06/03/18 21:00 07/03/18 20:59 Cefazolin Sodium/ Dextrose (Ancef 2 Gm/D5W 50ml) 2 gm Q8 06/03/18 22:00 06/04/18 14:01 06/04/18 06:21 Clonazepam (Klonopin) 0.5 mg TID 06/03/18 21:00 07/03/18 20:59 06/04/18 08:22 Digoxin (Lanoxin) 125 mcg DAILY 06/04/18 09:00 07/04/18 08:59 06/04/18 08:21 Docusate Sodium (Colace) 100 mg DAILY 06/04/18 09:00 07/04/18 08:59 06/04/18 08:21 Famotidine (Pepcid) 20 mg DAILY 06/04/18 09:00 07/04/18 08:59 06/04/18 08:22 Meperidine HCl (Demerol) 50 mg Q4HR PRN PAIN 06/03/18 19:30 07/03/18 19:29 06/03/18 20:01 Metformin HCl (Glucophage Xr) 500 mg DAILY 06/04/18 09:00 07/04/18 08:59 Ondansetron HCl (Zofran) 4 mg Q4H PRN NAUSEA / VOMITING 06/03/18 19:30 07/03/18 19:29 Pantoprazole Sodium (Protonix) 40 mg BID 06/03/18 21:00 07/03/18 20:59 06/04/18 08:22 Paroxetine HCl (Paxil) 20 mg HS 06/03/18 21:00 07/03/18 20:59 06/03/18 20:59 Simvastatin (Zocor) 20 mg HS 06/03/18 21:00 07/03/18 20:59 06/04/18 00:00 Throat Lozenges (Cepacol Sore Throat Lozenge) 1 each PRN PRN SORE THROAT 06/03/18 19:30 07/03/18 19:29 Tramadol HCl (Ultram) 50 mg Q6H PRN MILD PAIN 06/03/18 19:30 07/03/18 19:29 Tramadol HCl (Ultram) 100 mg Q6H PRN SEVERE PAIN 06/03/18 19:30 07/03/18 19:29 06/04/18 06:22 Sepsis Infection Criteria Pres: Suspected Infection LEVEL 1 SEPSIS INFECTION CRITE: ABX Therapy, Recent Invasive Procedure LEVEL 2-SIRS (LIST ALL THAT AP: None/Not assessed Cardiovascular Evidence: Not Assessed or None Hematologic Evidence: None/Not assessed Hepatic Evidence: Elevated AST(SGOT)>72 Metabolic Evidence: None/Not assessed Neurological Evidence: None/Not assessed Respiratory Evidence: Need for O2 to keep>90%, O2 SAT<90room air Renal Evidence: None/Not assessed O2 Sat by Pulse Oximetry: 98 Oxygen Flow Rate: 2.50 Assessment/Plan Assessment/Plan Assessment/Plan Patient is a 77 M PMH of Parkinson's Disease, DM, Chronic Afib presents with LLE Compartment syndrome. Plan 1.) L Lower Leg Compartment Syndrome - POD 4 fasciotomy. Further debridement yesterday. Wound care following, patient will get wound vac. PT/OT. 2.) L LE Hematoma - Secondary to fall. Cards following and has restarted anticoagulation. 3.) Anemia - Hg stable. Will check daily CBC. 4.) Chronic Afib- continue current PO regimen. Cards following. Anticoagulation restarted. 6.) Acute Renal Insuff - Cr/GFR stable. Avoid Nephrotoxic agents. 7.) End-Stage Parkinson's Disease - cont PT/OT. cont Sinemet 8. PPx: PPI and Pepcid, Eliquis 9. DM: cont PO oral hypoglycemics JATIN LOTT MD Jun 08, 2018 08:03
[2018-06-08] MEDS: ALTACE PO SCH ×2 (09:00→21:34)
[2018-06-08] MEDS: DEMEROL IV PRN (09:26)
[2018-06-08] MEDS: PEPCID PO SCH (09:39)
[2018-06-08] MEDS: COLACE PO SCH (09:39)
[2018-06-08] MEDS: FIBERCON PO SCH (09:39)
[2018-06-08] MEDS: GLUCOPHAGE XR PO SCH (09:41)
[2018-06-08] MEDS: SINEMET 25/100 PO SCH ×3 (09:41→21:36)
[2018-06-08] MEDS: PROTONIX PO SCH (09:41)
[2018-06-08] MEDS ORDERED: ELIQUIS PO ONE (11:55)
[2018-06-08] MEDS: THERA PO SCH (12:00)
[2018-06-08] MEDS: ELIQUIS PO SCH ×2 (12:00→21:36)
[2018-06-08] MEDS: ZINC SULFATE PO SCH (12:00)
[2018-06-08] MEDS: CORDARONE PO SCH ×2 (12:02→21:34)
[2018-06-08] MEDS: KLONOPIN PO SCH ×3 (12:02→21:35)
[2018-06-08] MEDS ORDERED: LASIX ONE (13:35)
[2018-06-08] MEDS: LANOXIN PO SCH (13:39)
[2018-06-08] MEDS: COREG PO SCH ×2 (13:40→21:36)
[2018-06-08] MEDS ORDERED: LASIX IV STA (13:40)
--- NOTE | 2018-06-08 15:02 | PNH ---
DATE: SUBJECTIVE: A 77-year-old male in no acute distress. He is seen today in the OR with Dr. Calle, where his open wound is evaluated. OBJECTIVE: VITAL SIGNS: His last reported temperature is 99.0, pulse 68, respiratory rate of 24, blood pressure 104/59. Most recent pulse is 86, respiratory rate 20, blood pressure 121/54. EXTREMITIES: Left lower extremity is seen prior to procedure. It is noted that the fasciotomy on the medial aspect was closed; on the lateral aspect some of the muscle appears viable; however, there was a portion that appears may be nonviable. The hematoma is improved. Dr. Calle was debriding continued necrotic appearing skin anteriorly. LABORATORY DATA: Today show white count 7.9, hemoglobin 9.5, platelet count 168. Chemistry shows BUN of 17, creatinine of 1.02. ASSESSMENT: 1. Status post fasciotomy, left lower extremity compartment syndrome. 2. Iatrogenic coagulopathy. 3. Ischemic injury to the skin overlying the left lower extremity. 4. History of atrial fibrillation with rapid ventricular response. PLAN: 1. The patient is seen and examined with Orthopedics today and the chart was reviewed. 2. We will evaluate the open wound tomorrow and depending on how it is improving, we will consider negative pressure wound therapy in hopes to facilitate an appropriate bed of granulation that will amenable to a split-thickness skin graft in the near future. However, this patient continues to be fairly complicated by his cardiac status as well as need for anticoagulation; thus will follow closely with Cardiology and Orthopedics. Butch Hartman DO DR: LINDA/gabby JOB# [id number] CC: Oseas Rocha MD
[2018-06-08] MEDS: PAXIL PO SCH (21:35)
[2018-06-08] MEDS: LIPITOR PO SCH (21:36)
[2018-06-09 00:14] VITALS: BP 108/57
[2018-06-09] MEDS: ANCEF 1 GM in NS 100ML 100 ML IV SCH ×2 (01:23→10:05)
[2018-06-09 04:32] VITALS: BP 123/64
[2018-06-09 04:51] LABS: BASOPHIL % 0.1 % (0.0-0.2); EOSINOPHIL # 0.3 10^3/uL (0.0-0.2); EOSINOPHIL % 3.4 % (0.0-5.0); HEMOGLOBIN 8.5 g/dL (13.9-16.3); LYMPHOCYTES # 0.6 10^3/uL (1.0-4.8); LYMPHOCYTES % 8.1 % (24.0-44.0); MEAN CELL HGB 30.4 pg (26-34); MEAN CELL HGB CONCENTRATION 31.5 g/dL (33-37); MEAN CORP VOLUME 96.4 fL (78-100); MEAN PLATELET VOLUME 9.6 fL (7.8-11.0); MONOCYTES % 12.4 % (5.0-12.0); NEUTROPHIL # 5.8 10^3/uL (1.8-7.7); NEUTROPHILS % 75.7 % (41.0-85.0); RED CELL DISTRIBUTION WIDTH 16.1 % (11.5-14.5); WHITE BLOOD CELL 7.7 10^3/uL (4.5-11.0)
[2018-06-09 05:18] LABS: CALCIUM 8.3 mg/dL (8.4-10.5); CARBON DIOXIDE 28.2 mmol/L (20.0-32)
[2018-06-09] MEDS: NS 1000ML/KCL 20MEQ 1,000 ML IV SCH ×2 (06:08→07:00)
[2018-06-09 09:10] VITALS: BP 118/62
--- NOTE | 2018-06-09 10:00 | PRM.PN ---
Subjective Subjective Date: Jun 09, 2018 Time: 09:53 Subjective Pain ok Afebrile VSS Pt douglass better sensation on dorsal aspect of foot Pt able to dorsiflex toes HGB 8.5 Pt in NSR Will dc to SNU in [place] for wound care and PT Patient History: No known health problems 32 MOTHER, , Age:87 19 CHILD 19 CHILD, , Age:27 19 CHILD, , Age:54 Parkinson's disease G8 BROTHER, , Age:81 No Family History of: Alzheimer's disease Asthma Cerebrovascular disorder Chronic obstructive pulmonary disease Congestive heart failure Diabetes insipidus Diabetes mellitus Hypertension VTE VTE Risk Total Score: 3 VTE Risk Score VTE Risk: Score 0-1 = Low Risk (Aggressive mobilization; early ambulation; no VTE prophylaxis required) Score 2: Moderate Risk (Intermittent/Pneumatic Compression Device OR Lovenox/Heparin/Coumadin) Score 3-4: High Risk (Intermittent/Pneumatic Compression Device AND Lovenox/Heparin/Coumadin) Score > or =5: Highest Risk (Intermittent/Pneumatic Compression Device AND Lovenox/Heparin/Coumadin) Review of Systems Allergies: Coded Allergies: morphine (Verified Allergy, Severe, HALLUCINATIONS, 10/27/16) codeine (Verified Allergy, Intermediate, 06/03/18) Scheduled Aspirin (Aspir 81), 1 TAB PO DAILY, (Reported) Carbidopa/Levodopa (Sinemet 25-100 Mg Tablet), 1 TAB PO TID, (Reported) Carvedilol 6.25MG (Coreg 6.25MG), 1 TAB PO BID, (Reported) Clonazepam (Clonazepam), 1 TAB PO TID, (Reported) Digoxin (Digitek), 125 MCG PO DAILY, (Reported) Metformin Hcl (Metformin Hcl Er), 1 TAB PO DAILY, (Reported) Pantoprazole Sodium (Protonix), 1 TAB PO BID, (Reported) Paroxetine Hcl (Paroxetine Hcl), 1 TAB PO HS, (Reported) Simvastatin (Simvastatin), 1 TAB PO HS, (Reported) Warfarin Sodium (Warfarin Sodium), 1 TAB PO DAILY, (Reported) Warfarin Sodium (Warfarin Sodium), 0.5 TAB PO DAILY, (Reported) Scheduled PRN Acetaminophen With Codeine (Tylenol With Codeine #4 Tablet), 1-2 EACH PO Q4 PRN for PAIN Objective Vitals and I/O Vital Sign - Last 24 Hours 06/03/18 06/03/18 06/03/18 06/03/18 14:09 14:14 14:18 14:23 Temp 98.9 98.9 98.9 98.9 Pulse 88 89 88 Resp 14 14 B/P (MAP) 115/52 (73) 84/36 (52) Pulse Ox 94 94 O2 Delivery Room Air Room Air 06/03/18 06/03/18 06/03/18 06/03/18 14:29 14:31 14:44 14:59 Pulse 85 81 82 B/P (MAP) 93/51 (65) Pulse Ox 96 88 92 06/03/18 06/03/18 06/03/18 06/03/18 15:14 15:27 15:29 15:48 Pulse 88 89 B/P (MAP) 105/61 (76) 156/90 (112) Pulse Ox 94 95 06/03/18 06/03/18 06/03/18 06/03/18 15:59 16:04 16:14 16:19 Pulse 92 97 B/P (MAP) 134/73 (93) 148/42 (77) 06/03/18 06/03/18 06/03/18 06/03/18 16:29 16:34 16:44 16:49 Pulse 82 99 B/P (MAP) 151/71 (97) 156/99 (118) 06/03/18 06/03/18 06/03/18 06/03/18 16:59 17:04 17:14 18:00 Temp 98.6 98.6 Pulse 92 87 109 Resp 14 B/P (MAP) 134/70 (91) 104/39 06/03/18 06/03/18 06/03/18 06/03/18 18:15 18:20 18:55 19:08 Temp 99.0 98.3 100.6 99.8 99.0 98.3 100.6 99.8 Pulse 70 108 122 90 Resp 14 14 18 18 B/P (MAP) 91/62 105/68 87/49 (62) 118/61 (80) Pulse Ox 97 95 O2 Delivery Non-Rebreather Room Air O2 Flow Rate 10 06/03/18 06/03/18 06/03/18 06/03/18 19:25 21:49 22:55 22:56 Temp 99.5 99.5 Pulse 92 80 Resp 18 18 16 B/P (MAP) 121/60 (80) Pulse Ox 97 97 97 O2 Delivery Room Air Nasal Cannula CPAP FiO2 30 06/03/18 06/03/18 06/04/18 06/04/18 22:56 23:40 01:27 04:30 Temp 97.8 97.8 Pulse 80 88 76 Resp 16 18 19 B/P (MAP) 107/63 (78) Pulse Ox 98 97 95 O2 Delivery C-Pap C-Pap C Pap CPAP FiO2 30 30 06/04/18 06/04/18 06/04/18 06/04/18 04:47 07:42 08:23 08:26 Temp 97.4 98.3 97.4 98.3 Pulse 68 72 72 Resp 30 20 B/P (MAP) 104/64 (77) 98/59 (72) 98/59 Pulse Ox 97 O2 Delivery C Pap Room Air Nasal Cannula O2 Flow Rate 2.00 06/04/18 06/04/18 06/04/18 10:01 10:15 11:56 Temp 98.1 98.1 Pulse 69 71 Resp 16 20 B/P (MAP) 100/53 (69) Pulse Ox 98 98 O2 Delivery Nasal Cannula Nasal Cannula O2 Flow Rate 2.00 2.00 FiO2 28 Intake and Output 06/03/18 06/03/18 06/04/18 15:00 23:00 07:00 Intake Total 9000 ml 200 ml Output Total 275 ml Balance 9000 ml -75 ml General: Alert, Oriented X3, Cooperative, No acute distress HEENT: Atraumatic, PERRLA, EOMI, Mucous membr. moist/pink Neck: Supple, No JVD Lungs: Clear to auscultation, Normal air movement Heart: Normal S1, Normal S2, No murmurs Abdomen: Normal bowel sounds, Soft, No tenderness, No masses Extremities: Normal pulses, Other (L LE wrapped, cleand dressed and dry.) Skin: No rashes Neuro: Normal gait, Normal speech, Strength at 5/5 X4 ext, Normal tone, Sensation intact, Cranial nerves 3-12 NL, Other (Moderate to severe resting parkinsonian tremor on RUE.) Psych/Mental Status: Mental status NL, Mood NL All Results(Lab/Rad) Laboratory Tests Test 06/03/18 14:40 06/04/18 05:26 White Blood Count 9.2 10^3/uL 9.7 10^3/uL Red Blood Count 3.48 10^6/uL 2.78 10^6/uL Hemoglobin 10.8 g/dL 8.5 g/dL Hematocrit 33.2 % 27.0 % Mean Corpuscular Volume 95.4 fL 97.1 fL Mean Corpuscular Hemoglobin 31.0 pg 30.6 pg Mean Corpuscular Hemoglobin Concent 32.5 g/dL 31.5 g/dL Red Cell Distribution Width 17.2 % 17.1 % Platelet Count 165 10^3/uL 145 10^3/uL Mean Platelet Volume 10.2 fL 10.4 fL Neutrophils (%) (Auto) 76.0 % Lymphocytes (%) (Auto) 12.2 % Monocytes (%) (Auto) 10.5 % Neutrophils # (Auto) 7.0 10^3/uL Lymphocytes # (Auto) 1.1 10^3/uL Monocytes # (Auto) 1.0 10^3/uL Absolute Immature Granulocyte (auto 0.01 10^3 u/L Eosinophils % 1.0 % Basophils % 0.2 % Basophils # 0.0 10^3/uL Eosinophil Count 0.1 10^3/uL Prothrombin Time 22.2 SEC Prothrombin Time INR (Non-Therap) 2.3 Activated Partial Thromboplast Time 37.4 SEC Sodium Level 141 mmol/L Potassium Level 4.3 mmol/L Chloride Level 105.0 mmol/L Carbon Dioxide Level 27.5 mmol/L Anion Gap 12.8 Blood Urea Nitrogen 25 mg/dL Creatinine 1.53 mg/dL Estimated GFR () 53.4 BUN/Creatinine Ratio 16.0 Glucose Level 125 mg/dL Calcium Level 8.6 mg/dL Total Bilirubin 0.9 mg/dL Aspartate Amino Transf (AST/SGOT) 60 U/L Alanine Aminotransferase (ALT/SGPT) 12 U/L Alkaline Phosphatase 58 U/L Total Protein 6.7 g/dL Albumin 3.5 g/dL Globulin 3.2 Percent Immature Gran (Cell Imm) 0.10 % Current Medications Medications (Trade) Dose Ordered Sig/Feliz Route PRN Reason Start Time Stop Time Status Last Admin Dose Admin Sodium Chloride 1,000 ml @ 1,200 mls/hr Q50M STAT IV 06/03/18 14:38 06/03/18 15:27 DC 06/03/18 14:53 Sodium Chloride (Sodium Chloride) 1,000 ml STK-MED ONCE IR 06/03/18 17:05 06/03/18 17:07 DC Sodium Chloride 1,000 ml @ ud STK-MED ONCE .ROUTE 06/03/18 17:21 06/03/18 17:23 DC Sodium Chloride 100 ml @ ud STK-MED ONCE IV 06/03/18 17:22 06/03/18 17:23 DC Dexamethasone Sodium Phosphate (Decadron) 4 mg STK-MED ONCE .ROUTE 06/03/18 17:22 06/03/18 17:23 DC Ondansetron HCl (Zofran) 4 mg STK-MED ONCE .ROUTE 06/03/18 17:22 06/03/18 17:23 DC Etomidate (Amidate) 40 mg STK-MED ONCE IV 06/03/18 17:22 06/03/18 17:23 DC Fentanyl Citrate (Sublimaze) 100 mcg STK-MED ONCE .ROUTE 06/03/18 17:22 06/03/18 17:24 DC Propofol (Diprivan) 200 mg STK-MED ONCE IV 06/03/18 17:22 06/03/18 17:24 DC Cefazolin Sodium (Ancef) 1 gm STK-MED ONCE .ROUTE 06/03/18 17:46 06/03/18 17:47 DC Sodium Chloride 250 ml @ ud STK-MED ONCE IV 06/03/18 17:46 06/03/18 17:47 DC Fentanyl Citrate (Sublimaze) 25 mcg Q5MIN PRN IV PAIN 06/03/18 19:30 06/03/18 22:40 DC Ondansetron HCl (Zofran) 4 mg PRN PRN IV nv 06/03/18 19:30 06/03/18 22:43 DC Diphenhydramine HCl (Benadryl) 25 mg Q5MIN PRN IV NAUSEA / VOMITING 06/03/18 19:30 06/03/18 22:34 DC Albuterol Sulfate (Ventolin) 2.5 mg OT PRN IH WHEEZING 06/03/18 19:30 06/03/18 22:42 DC Tramadol HCl (Ultram) 50 mg Q6H PRN PO MILD PAIN 06/03/18 19:30 07/03/18 19:29 Tramadol HCl (Ultram) 100 mg Q6H PRN PO SEVERE PAIN 06/03/18 19:30 07/03/18 19:29 06/04/18 06:22 Docusate Sodium (Colace) 100 mg DAILY PO 06/04/18 09:00 07/04/18 08:59 06/04/18 08:21 Throat Lozenges (Cepacol Sore Throat Lozenge) 1 each PRN PRN MM SORE THROAT 06/03/18 19:30 07/03/18 19:29 Famotidine (Pepcid) 20 mg DAILY PO 06/04/18 09:00 07/04/18 08:59 06/04/18 08:22 Cefazolin Sodium/ Dextrose (Ancef 2 Gm/D5W 50ml) 2 gm Q8 IV 06/03/18 22:00 06/04/18 14:01 06/04/18 06:21 Meperidine HCl (Demerol) 50 mg Q4HR PRN IV PAIN 06/03/18 19:30 07/03/18 19:29 06/03/18 20:01 Ondansetron HCl (Zofran) 4 mg Q4H PRN IV NAUSEA / VOMITING 06/03/18 19:30 07/03/18 19:29 Carbidopa/Levodopa (Sinemet 25/100) 1 each TID PO 06/03/18 21:00 07/03/18 20:59 06/04/18 08:21 Carvedilol (Coreg) 6.25 mg BID PO 06/03/18 21:00 07/03/18 20:59 Clonazepam (Klonopin) 0.5 mg TID PO 06/03/18 21:00 07/03/18 20:59 06/04/18 08:22 Digoxin (Lanoxin) 125 mcg DAILY PO 06/04/18 09:00 07/04/18 08:59 06/04/18 08:21 Pantoprazole Sodium (Protonix) 40 mg BID PO 06/03/18 21:00 07/03/18 20:59 06/04/18 08:22 Paroxetine HCl (Paxil) 20 mg HS PO 06/03/18 21:00 07/03/18 20:59 06/03/18 20:59 Simvastatin (Zocor) 20 mg HS PO 06/03/18 21:00 07/03/18 20:59 06/04/18 00:00 Metformin HCl (Glucophage Xr) 500 mg DAILY PO 06/04/18 09:00 07/04/18 08:59 Sodium Chloride 0 ml @ 999 mls/hr Q0M STAT IV 06/03/18 20:48 06/03/18 22:39 DC 06/03/18 20:48 Metoprolol Succinate (Toprol Xl) 25 mg STAT STAT PO 06/03/18 20:48 06/03/18 22:40 DC 06/03/18 21:05 Metoprolol Tartrate (Lopresser) 25 mg STK-MED ONCE .ROUTE 06/03/18 20:57 06/03/18 20:59 DC Cefazolin Sodium (Ancef) 1 gm STK-MED ONCE .ROUTE 06/03/18 23:49 06/03/18 23:51 DC Sodium Chloride 100 ml @ ud STK-MED ONCE IV 06/03/18 23:50 06/03/18 23:51 DC Cefazolin Sodium (Ancef) 1 gm STK-MED ONCE .ROUTE 06/04/18 06:15 06/04/18 06:16 DC Sodium Chloride 100 ml @ ud STK-MED ONCE IV 06/04/18 06:15 06/04/18 06:17 DC Course Sepsis Screening Results: Posi: POSITIVE Sepsis Qualifier/Stage: SEPSIS RISK Duration or Total Time Spent w: 60 mins Vitals & review Data Vital Sign - Last 24 Hours 06/03/18 06/03/18 06/03/18 06/03/18 14:09 14:14 14:18 14:23 Temp 98.9 98.9 98.9 98.9 Pulse 88 89 88 Resp 14 14 B/P (MAP) 115/52 (73) 84/36 (52) Pulse Ox 94 94 O2 Delivery Room Air Room Air 06/03/18 06/03/18 06/03/18 06/03/18 14:29 14:31 14:44 14:59 Pulse 85 81 82 B/P (MAP) 93/51 (65) Pulse Ox 96 88 92 06/03/18 06/03/18 06/03/18 06/03/18 15:14 15:27 15:29 15:48 Pulse 88 89 B/P (MAP) 105/61 (76) 156/90 (112) Pulse Ox 94 95 06/03/18 06/03/18 06/03/18 06/03/18 15:59 16:04 16:14 16:19 Pulse 92 97 B/P (MAP) 134/73 (93) 148/42 (77) 06/03/18 06/03/18 06/03/18 06/03/18 16:29 16:34 16:44 16:49 Pulse 82 99 B/P (MAP) 151/71 (97) 156/99 (118) 06/03/18 06/03/18 06/03/18 06/03/18 16:59 17:04 17:14 18:00 Temp 98.6 98.6 Pulse 92 87 109 Resp 14 B/P (MAP) 134/70 (91) 104/39 06/03/18 06/03/18 06/03/18 06/03/18 18:15 18:20 18:55 19:08 Temp 99.0 98.3 100.6 99.8 99.0 98.3 100.6 99.8 Pulse 70 108 122 90 Resp 14 14 18 18 B/P (MAP) 91/62 105/68 87/49 (62) 118/61 (80) Pulse Ox 97 95 O2 Delivery Non-Rebreather Room Air O2 Flow Rate 10 06/03/18 06/03/18 06/03/18 06/03/18 19:25 21:49 22:55 22:56 Temp 99.5 99.5 Pulse 92 80 Resp 18 18 16 B/P (MAP) 121/60 (80) Pulse Ox 97 97 97 O2 Delivery Room Air Nasal Cannula CPAP FiO2 30 06/03/18 06/03/18 06/04/18 06/04/18 22:56 23:40 01:27 04:30 Temp 97.8 97.8 Pulse 80 88 76 Resp 16 18 19 B/P (MAP) 107/63 (78) Pulse Ox 98 97 95 O2 Delivery C-Pap C-Pap C Pap CPAP FiO2 30 30 06/04/18 06/04/18 06/04/18 06/04/18 04:47 07:42 08:23 08:26 Temp 97.4 98.3 97.4 98.3 Pulse 68 72 72 Resp 30 20 B/P (MAP) 104/64 (77) 98/59 (72) 98/59 Pulse Ox 97 O2 Delivery C Pap Room Air Nasal Cannula O2 Flow Rate 2.00 06/04/18 06/04/18 06/04/18 10:01 10:15 11:56 Temp 98.1 98.1 Pulse 69 71 Resp 16 20 B/P (MAP) 100/53 (69) Pulse Ox 98 98 O2 Delivery Nasal Cannula Nasal Cannula O2 Flow Rate 2.00 2.00 FiO2 28 Intake and Output 06/03/18 06/03/18 06/04/18 15:00 23:00 07:00 Intake Total 9000 ml 200 ml Output Total 275 ml Balance 9000 ml -75 ml Laboratory Tests Test 06/03/18 14:40 06/04/18 05:26 White Blood Count 9.2 10^3/uL 9.7 10^3/uL Red Blood Count 3.48 10^6/uL 2.78 10^6/uL Hemoglobin 10.8 g/dL 8.5 g/dL Hematocrit 33.2 % 27.0 % Mean Corpuscular Volume 95.4 fL 97.1 fL Mean Corpuscular Hemoglobin 31.0 pg 30.6 pg Mean Corpuscular Hemoglobin Concent 32.5 g/dL 31.5 g/dL Red Cell Distribution Width 17.2 % 17.1 % Platelet Count 165 10^3/uL 145 10^3/uL Mean Platelet Volume 10.2 fL 10.4 fL Neutrophils (%) (Auto) 76.0 % Lymphocytes (%) (Auto) 12.2 % Monocytes (%) (Auto) 10.5 % Neutrophils # (Auto) 7.0 10^3/uL Lymphocytes # (Auto) 1.1 10^3/uL Monocytes # (Auto) 1.0 10^3/uL Absolute Immature Granulocyte (auto 0.01 10^3 u/L Eosinophils % 1.0 % Basophils % 0.2 % Basophils # 0.0 10^3/uL Eosinophil Count 0.1 10^3/uL Prothrombin Time 22.2 SEC Prothrombin Time INR (Non-Therap) 2.3 Activated Partial Thromboplast Time 37.4 SEC Sodium Level 141 mmol/L Potassium Level 4.3 mmol/L Chloride Level 105.0 mmol/L Carbon Dioxide Level 27.5 mmol/L Anion Gap 12.8 Blood Urea Nitrogen 25 mg/dL Creatinine 1.53 mg/dL Estimated GFR () 53.4 BUN/Creatinine Ratio 16.0 Glucose Level 125 mg/dL Calcium Level 8.6 mg/dL Total Bilirubin 0.9 mg/dL Aspartate Amino Transf (AST/SGOT) 60 U/L Alanine Aminotransferase (ALT/SGPT) 12 U/L Alkaline Phosphatase 58 U/L Total Protein 6.7 g/dL Albumin 3.5 g/dL Globulin 3.2 Percent Immature Gran (Cell Imm) 0.10 % Current Medications Medications (Trade) Dose Ordered Sig/Feliz PRN Reason Start Time Stop Time Status Last Admin Carbidopa/Levodopa (Sinemet 25/100) 1 each TID 06/03/18 21:00 07/03/18 20:59 06/04/18 08:21 Carvedilol (Coreg) 6.25 mg BID 06/03/18 21:00 07/03/18 20:59 Cefazolin Sodium/ Dextrose (Ancef 2 Gm/D5W 50ml) 2 gm Q8 06/03/18 22:00 06/04/18 14:01 06/04/18 06:21 Clonazepam (Klonopin) 0.5 mg TID 06/03/18 21:00 07/03/18 20:59 06/04/18 08:22 Digoxin (Lanoxin) 125 mcg DAILY 06/04/18 09:00 07/04/18 08:59 06/04/18 08:21 Docusate Sodium (Colace) 100 mg DAILY 06/04/18 09:00 07/04/18 08:59 06/04/18 08:21 Famotidine (Pepcid) 20 mg DAILY 06/04/18 09:00 07/04/18 08:59 06/04/18 08:22 Meperidine HCl (Demerol) 50 mg Q4HR PRN PAIN 06/03/18 19:30 07/03/18 19:29 06/03/18 20:01 Metformin HCl (Glucophage Xr) 500 mg DAILY 06/04/18 09:00 07/04/18 08:59 Ondansetron HCl (Zofran) 4 mg Q4H PRN NAUSEA / VOMITING 06/03/18 19:30 07/03/18 19:29 Pantoprazole Sodium (Protonix) 40 mg BID 06/03/18 21:00 07/03/18 20:59 06/04/18 08:22 Paroxetine HCl (Paxil) 20 mg HS 06/03/18 21:00 07/03/18 20:59 06/03/18 20:59 Simvastatin (Zocor) 20 mg HS 06/03/18 21:00 07/03/18 20:59 06/04/18 00:00 Throat Lozenges (Cepacol Sore Throat Lozenge) 1 each PRN PRN SORE THROAT 06/03/18 19:30 07/03/18 19:29 Tramadol HCl (Ultram) 50 mg Q6H PRN MILD PAIN 06/03/18 19:30 07/03/18 19:29 Tramadol HCl (Ultram) 100 mg Q6H PRN SEVERE PAIN 06/03/18 19:30 07/03/18 19:29 06/04/18 06:22 Sepsis Infection Criteria Pres: Suspected Infection LEVEL 1 SEPSIS INFECTION CRITE: ABX Therapy, Fever/Chills, Recent Invasive Procedure LEVEL 2-SIRS (LIST ALL THAT AP: None/Not assessed Cardiovascular Evidence: Not Assessed or None Hematologic Evidence: None/Not assessed Hepatic Evidence: Elevated AST(SGOT)>72 Metabolic Evidence: None/Not assessed Neurological Evidence: None/Not assessed Respiratory Evidence: Need for O2 to keep>90%, O2 SAT<90room air Renal Evidence: None/Not assessed O2 Sat by Pulse Oximetry: 96 Oxygen Flow Rate: 2.00 Assessment/Plan Assessment/Plan Assessment/Plan 1.) L Lower Leg Compartment Syndrome - POD 4 fasciotomy. Further debridement yesterday. Wound care following, patient will get wound vac. PT/OT. 2.) L LE Hematoma - Secondary to fall. Cards following and has restarted anticoagulation. 3.) Anemia - Hg stable. Will check daily CBC. 4.) Chronic Afib- continue current PO regimen. Cards following. Anticoagulation restarted. 6.) Acute Renal Insuff - Cr/GFR stable. Avoid Nephrotoxic agents. 7.) End-Stage Parkinson's Disease - cont PT/OT. cont Sinemet 8. PPx: PPI and Pepcid, Eliquis 9. DM: cont PO oral hypoglycemics Plan 1.) L Lower Leg Compartment Syndrome - POD 4 fasciotomy. Further debridement yesterday. Wound care following, patient will get wound vac. PT/OT. 2.) L LE Hematoma - Secondary to fall. Cards following and has restarted anticoagulation. 3.) Anemia - Hg stable. Will check daily CBC. 4.) Chronic Afib- continue current PO regimen. Cards following. Anticoagulation restarted. 6.) Acute Renal Insuff - Cr/GFR stable. Avoid Nephrotoxic agents. 7.) End-Stage Parkinson's Disease - cont PT/OT. cont Sinemet 8. PPx: PPI and Pepcid, Eliquis 9. DM: cont PO oral hypoglycemics ARACELI HUMPHREY MD Jun 09, 2018 10:00
[2018-06-09] MEDS: FIBERCON PO SCH (10:05)
[2018-06-09] MEDS: COLACE PO SCH (10:05)
[2018-06-09] MEDS: ALTACE PO SCH (10:06)
[2018-06-09] MEDS: SINEMET 25/100 PO SCH ×2 (10:06→16:20)
[2018-06-09] MEDS: GLUCOPHAGE XR PO SCH (10:06)
[2018-06-09] MEDS: COREG PO SCH (10:06)
[2018-06-09] MEDS: LANOXIN PO SCH (10:07)
[2018-06-09] MEDS: ULTRAM PO PRN ×3 (10:07→17:09)
[2018-06-09] MEDS: THERA PO SCH (10:07)
[2018-06-09] MEDS: PROTONIX PO SCH (10:08)
[2018-06-09] MEDS: ZINC SULFATE PO SCH (10:08)
[2018-06-09] MEDS: ELIQUIS PO SCH (10:08)
[2018-06-09] MEDS: CORDARONE PO SCH (10:08)
[2018-06-09] MEDS: PEPCID PO SCH (10:08)
[2018-06-09] MEDS: KLONOPIN PO SCH ×2 (10:09→16:19)
[2018-06-09] MEDS ORDERED: CALC625T PO (10:09)
[2018-06-09] MEDS ORDERED: AMOX1TAB63 PO (10:09)
[2018-06-09] MEDS ORDERED: ATOR40TA PO (10:09)
[2018-06-09] MEDS ORDERED: RAMI2.5C28 PO (10:09)
[2018-06-09] MEDS ORDERED: PANT40TA3 PO (10:09)
[2018-06-09] MEDS ORDERED: APIX2.5T PO (10:09)
[2018-06-09] MEDS ORDERED: MULTIVITAMIN THERAPEUTIC PO (10:09)
[2018-06-09] MEDS ORDERED: AMIO200T4 PO (10:09)
--- NOTE | 2018-06-09 14:33 | PNH ---
DATE: BRIEF FOLLOWUP VISIT SUBJECTIVE: A 77-year-old male in no acute distress. He is seen in his room in the ICU today with the ICU nursing service and also the wound nurse. OBJECTIVE: VITAL SIGNS: Last temperature is 98.4, most recent pulse is 72, respiratory rate of 20, blood pressure of 117/67. EXTREMITIES: Left lower extremity: The site that was closed medially appears to be intact and appropriate. The open wound laterally shows some consistent edema and bulging of the muscles from the deep compartment. There is some turning into the edges around the skin margins. ASSESSMENT: 1. Status post fasciotomy for acute compartment syndrome of left lower extremity secondary to injury with iatrogenic coagulopathy. 2. Skin necrosis secondary to compartment syndrome. 3. History of iatrogenic coagulopathy. 4. History of atrial fibrillation. 5. Open wound secondary to above. PLAN: 1. The patient is seen and examined. The chart is reviewed. His open wound is clean with the assistance of nursing service and a negative pressure wound therapy device is placed. He has a blister on the dorsum of the foot that is treated as well. He is noted to have good pedal pulse after the placement of VAC. 2. With the patient's fairly complex medical situation as well as the need for anticoagulation, he will likely be transferred to a long-term facility for wound care and optimize his medical status. If he returns to us, we will consider split thickness skin grafting; however, this will have to be coordinated with the Cardiology service regarding the anticoagulation. Butch Hartman DO DR: LINDA/gabby JOB# [id number] CC: Oseas Kulkarni M.D.
--- NOTE | 2018-06-09 16:13 | PNH ---
DATE: 06/08/2018 A 77-year-old male. SUBJECTIVE: The patient is post hematoma evacuation in his left leg and he is overall doing well from a cardiac standpoint. He is back in regular sinus rhythm with biventricular paced rhythm with a pulse of 72, respiration 24, 117/67 blood pressure, 97 saturation on 2 liters nasal cannula. Intake, output chart shows that when he went to the OR yesterday, he almost got 9283 mL of poor urine output and a positive balance of almost 8458. He got most of the fluids in the OR, but clinically he seems to be stable. No JVD, no obvious carotid bruits are noted and lungs show poor air entry at the bases. Heart sounds are normal. White count is 7.4, hemoglobin 9 and the chemistries showed improvement in his creatinine to 0.99 with a BUN of 16 and 4.3 potassium with a bilirubin of 1.1 and a low protein, low albumin is noted. His blood culture showed no growth. Wound from the left leg with fasciotomy was done, shows no organisms noted. He has been started on Eliquis 2.5 mg twice a day; if tolerated well, will go to 5 mg daily. He is going to [facility] and by tomorrow will be going to the floor. IMPRESSION: [id number] systolic heart failure, ischemic cardiomyopathy, atrial flutter/fibrillation, post-biventricular pacer, device adjusted and back in regular sinus rhythm after amiodarone loading, post left leg hematoma, post fasciotomy with improved wound at the present time. We will continue present therapy and we will go to the floor. He also has Parkinson's disease. We will continue present therapy. Laxmichand MD Aj DR: MARITZA/gabby JOB# [id number]
[2018-06-09] MEDS ORDERED: TRAM50TA PO (16:16)
[2018-06-09 17:53] VITALS: BP 118/62
--- NOTE | 2018-06-09 21:50 | DSH ---
DATE OF DISCHARGE: 06/09/2018 ADMITTING DIAGNOSES: Include: 1. Hematoma, left lower leg. 2. Compartment syndrome, left lower leg. OTHER DIAGNOSES: Include atrial fibrillation, coronary artery disease, diabetes, hypertension, Parkinson's. DISCHARGE DIAGNOSES: Include: 1. Hematoma, left lower leg. 2. Compartment syndrome, left lower leg. 3. Postoperative anemia secondary to blood loss, expected. OPERATIVE PROCEDURES: 06/03/2018. PROCEDURE PERFORMED: 1. Incision and drainage of hematoma, left lower leg. 2. Fasciotomy of all four compartments of the left lower leg. The second surgery date was 06/07/2018 which included irrigation, debridement and closure of the medial left leg wound. 3. Irrigation and debridement of skin and subcutaneous tissue of the lateral left leg wound. CONSULTATIONS: Will be Dr. Rocha as well as ____. SUMMARY OF ADMISSION: The patient is a 77-year-old male who has a history of atrial fibrillation, was on Coumadin. A 5 or 6 days prior to admission, the patient fell at home, began having swelling about the left leg. The patient was seen in the Emergency Room on 06/03/2018 with severe swelling about the left leg. He had numbness diffusely about the left leg and was unable to extend her toes and ankles. His x-rays did not reveal any fractures. The patient was felt to have a compartment syndrome and was taken to the operating room. At the time of surgery, the patient had a large hematoma about the anterolateral compartment that was evacuated. He also had fasciotomies performed of all 4 compartments through a 2-incision fasciotomy. The patient had the wounds left open. The patient was initially transferred to the floor. Approximately 24 hours postop, the patient went into atrial fibrillation and had to be transferred to the ICU. Dr. Rocha treated his atrial fibrillation and got his pacemaker back in regular sinus rhythm. The patient was taken back to the operating room on 06/07/2018 where his wounds were irrigated and debrided. The wounds appeared clean. The medial wound was closed at that time. The lateral wound was unable to be closed and had some necrotic skin anteriorly that was debrided. The patient 24-hours postoperatively had a wound VAC applied to the left lower leg. At one point, the patient's hemoglobin dropped down to 7.5 and he was transfused with 2 units of packed cells. The patient on discharge state that he has failing to light touch between the first and second webspace as well as the anterior and lateral border of his left foot. He is able to weakly dorsiflex all of his toes. The patient's wounds are clean and dry. He is afebrile. The patient will be transferred to the [facility] in [place] for wound care as well as physical therapy. The patient will be on Eliquis 2.5 mg twice a day as per Dr. Rocha. We will put him on tramadol as well as Augmentin 875 twice a day for 5 days. They will do wound care at the [facility] as well as physical therapy. The patient will be instructed to call my office and make an appointment once he is discharged from the [facility]. He is on a regular diabetic diet, which he has tolerated well. Oseas Calle MD DR: ANILA/gabby JOB# [id number]
--- NOTE | 2018-06-10 09:22 | DSH ---
DATE OF DISCHARGE: 06/09/2018 Discharged on 06/09/2018 to [facility] nursing [facility] as per Dr. Calle. FINAL DIAGNOSES: Recurrent syncope, atrial fibrillation with rapid ventricular response, left lower leg marked hematoma requiring fasciotomy and compartment syndrome, postop blood loss anemia, ischemic cardiomyopathy, acute on chronic systolic heart failure, incision and drainage of the hematoma left lower leg, fasciotomy of all 4 compartments of the left lower leg, second surgery done 06/07/2018, underlying Parkinson's disease, post-biventricular pacer ICD, ejection fraction of 30%, chronic kidney disease class 2 improved. Please refer to my consultation. HOSPITAL COURSE: The patient is a 77-year-old white male who was admitted with recurrent falls, on Coumadin, with underlying history of multiple injuries in the past and had sustained a large hematoma in the left lower leg and initially there was evacuation of hematoma, then fasciotomy was done for compartment syndrome and debridement was done and he may require a skin graft at a later date. At the present time, he is on a wound VAC and early granulation is documented. He is afebrile. He was in a rapid atrial fibrillation, was placed on IV amiodarone and his ejection fraction was 30% and has coronary artery disease and prior coronary stenting and has Parkinson's disease and after IV amiodarone loading, he went back into regular sinus rhythm with biventricular paced rhythm with V-tracking and he has done much better. His failure symptoms have improved. He was sent to [facility] on amiodarone 200 mg twice a day and Augmentin 875 mg twice a day for about 7 days, Eliquis 2.5 mg twice a day, although his kidney function has improved from 1.5 creatinine to almost 1.1 and Eliquis dose has been kept low since one needs to assess that he does not bleed from the surgical site and at a later date may be increased to 5 mg twice a day, Lipitor 40 mg once a day and he is on FiberCon 625 mg daily, multivitamin once a day, Protonix 40 mg once a day, ramipril 2.5 mg twice a day, aspirin 81 mg once a day, Tylenol with Codeine 1 tablet q. 4 hours p.r.n. pain and Sinemet 25/100 one tablet 3 times a day, Coreg 6.25 mg twice a day, clonazepam 0.5 mg 3 times a day, Lanoxin 0.125 mg daily, metformin 500 mg once a day, Protonix 40 mg once a day. He is on paroxetine 20 mg once a day, Ultram 1 tablet q. 6 hours p.r.n. pain, simvastatin and Coumadin was stopped. Wound VAC and wound care to be done and he will see Dr. Calle and if he wishes, he can check back with me for this cardiology care. At the present time, he is doing much better. Laxmichand MD Aj DR: MARITZA/gabby JOB# [id number]
== END 2018-06-09 17:07 | DRG 901 ==
LOC: ER 13:59 → MS 17:25 → SUR 06-05 16:09 → ICU 06-05 17:58 → MS 06-08 18:21 → EDPENDDISTM 06-09 17:07
PROVIDERS: ADMIT Orthopaedic Surgery; ATTEND Specialist
PROC: 0KNT0ZZ Release Left Lower Leg Muscle, Open Approach (ICD-10-PCS; 2018-06-03)
PROC: 0KNT0ZZ Release Left Lower Leg Muscle, Open Approach (ICD-10-PCS; 2018-06-03)
PROC: 0KNT0ZZ Release Left Lower Leg Muscle, Open Approach (ICD-10-PCS; 2018-06-03)
PROC: 0KNT0ZZ Release Left Lower Leg Muscle, Open Approach (ICD-10-PCS; 2018-06-03)
PROC: 30233K1 Transfusion of Nonautologous Frozen Plasma into Peripheral Vein, Percutaneous Approach (ICD-10-PCS; 2018-06-03)
PROC: 5A09357 Assistance with Respiratory Ventilation, Less than 24 Consecutive Hours, Continuous Positive Airway Pressure (ICD-10-PCS; 2018-06-03)
PROC: 0Y9J0ZZ Drainage of Left Lower Leg, Open Approach (ICD-10-PCS; principal; 2018-06-03 17:41)
PROC: 5A09357 Assistance with Respiratory Ventilation, Less than 24 Consecutive Hours, Continuous Positive Airway Pressure (ICD-10-PCS; 2018-06-04)
PROC: 30233N1 Transfusion of Nonautologous Red Blood Cells into Peripheral Vein, Percutaneous Approach (ICD-10-PCS; 2018-06-05)
PROC: 5A09357 Assistance with Respiratory Ventilation, Less than 24 Consecutive Hours, Continuous Positive Airway Pressure (ICD-10-PCS; 2018-06-05)
PROC: 5A09357 Assistance with Respiratory Ventilation, Less than 24 Consecutive Hours, Continuous Positive Airway Pressure (ICD-10-PCS; 2018-06-06)
PROC: 0JBP0ZZ Excision of Left Lower Leg Subcutaneous Tissue and Fascia, Open Approach (ICD-10-PCS; 2018-06-07)
PROC: 5A09357 Assistance with Respiratory Ventilation, Less than 24 Consecutive Hours, Continuous Positive Airway Pressure (ICD-10-PCS; 2018-06-07)
PROC: 5A09357 Assistance with Respiratory Ventilation, Less than 24 Consecutive Hours, Continuous Positive Airway Pressure (ICD-10-PCS; 2018-06-08)
DX: T79.A22A Traumatic compartment syndrome of left lower extremity, initial encounter (principal); N17.0 Acute kidney failure with tubular necrosis; I50.23 Acute on chronic systolic (congestive) heart failure; D68.9 Coagulation defect, unspecified; I48.92 Unspecified atrial flutter; D62 Acute posthemorrhagic anemia; I13.0 Hypertensive heart and chronic kidney disease with heart failure and stage 1 through stage 4 chronic kidney disease, or unspecified chronic kidney disease; I48.0 Paroxysmal atrial fibrillation; I25.10 Atherosclerotic heart disease of native coronary artery without angina pectoris; E11.65 Type 2 diabetes mellitus with hyperglycemia; T45.515A Adverse effect of anticoagulants, initial encounter; G20 Parkinson's disease; S80.12XA Contusion of left lower leg, initial encounter; R29.6 Repeated falls; I25.5 Ischemic cardiomyopathy; E86.1 Hypovolemia; I95.9 Hypotension, unspecified; E11.22 Type 2 diabetes mellitus with diabetic chronic kidney disease; E78.00 Pure hypercholesterolemia, unspecified; E78.5 Hyperlipidemia, unspecified; I50.84 End stage heart failure; N18.2 Chronic kidney disease, stage 2 (mild); I48.2 Chronic atrial fibrillation; W18.39XA Other fall on same level, initial encounter; M19.90 Unspecified osteoarthritis, unspecified site; R26.9 Unspecified abnormalities of gait and mobility; Z96.653 Presence of artificial knee joint, bilateral; Z91.81 History of falling; Z95.5 Presence of coronary angioplasty implant and graft; Z95.810 Presence of automatic (implantable) cardiac defibrillator; Z79.84 Long term (current) use of oral hypoglycemic drugs; Z79.899 Other long term (current) drug therapy; Z79.01 Long term (current) use of anticoagulants; Z88.5 Allergy status to narcotic agent; Z82.49 Family history of ischemic heart disease and other diseases of the circulatory system; Z83.3 Family history of diabetes mellitus; Y93.89 Activity, other specified; Y92.89 Other specified places as the place of occurrence of the external cause; Y99.8 Other external cause status
CPT/HCPCS: 36415; 36430; 36600; 71046; 73700; 80053; 82803; 82948; 83036; 83880; 84443; 84484; 85025; 85027; 85610; 85730; 86885; 86900; 86901; 86921; 87040; 87070; 93005; 93307; 94660; 97161; 97166; 99285; A4217; G0378; J0282; J0690; J1100; J1160; J1170; J1644; J1940; J2001; J2175; J2250; J2405; J2710; J3010; J3490; J7030; J7050; J7120; P9016; 97116-GP; A9270; J3430; P9017

== ENCOUNTER 2018-06-10 16:40 | Inpatient (IN) | payer MEDICARE ==
[~2018-06-10] VITALS: Ht 182.9 cm; Wt 82.6 kg
[~2018-06-10 16:40] MED LIST changes: +AMIO200T4 PO; +AMOX1TAB63 PO; +APIX2.5T PO; +ATOR40TA PO; +CALC625T PO; +MULTIVITAMIN THERAPEUTIC PO; +RAMI2.5C28 PO; +TRAM50TA PO
[2018-06-10 16:51] VITALS: BP 117/59
--- NOTE | 2018-06-10 17:48 | ER.PDOC ---
General Chief Complaint: Wound Recheck/Suture Removal Stated Complaint: WOUND Time seen by MD: 17:46 Source: patient Exam Limitations: no limitations History of Present Illness Initial Procedure Done In ER: Wound check left leg. Patient had fasciotomy 1 week ago. Days Prior To Arrival: 8 Antobiotics Given: prescription Allergies: Coded Allergies: morphine (Verified Allergy, Severe, HALLUCINATIONS, 10/27/16) codeine (Verified Allergy, Intermediate, 06/03/18) Home Meds Active Scripts Amoxicillin/Potassium Clav (AUGMENTIN 875-125 TABLET) 1 Each Tablet, 1 EACH PO BIDM for 7 Days Prov:DAVY HYDE MD 06/09/18 [Multivitamin,Therapeutic] 1 EACH TABLET No Conflict Check, 1 EACH PO DAILY for 30 Days, #30 Prov:DAVY HYDE MD 06/09/18 Pantoprazole Sodium (PROTONIX) 40 Mg Tablet.dr, 40 MG PO DAILY for 30 Days, #30 Prov:DAVY HYDE MD 06/09/18 Calcium Polycarbophil (FIBERCON) 625 Mg Tablet, 625 MG PO DAILY for 30 Days, # 30 TABLET Prov:DAVY HYDE MD 06/09/18 Ramipril 2.5MG (ALTACE 2.5MG) 2.5 Mg Capsule, 2.5 MG PO BID for 30 Days, #60 CAPSULE Prov:DAVY HYDE MD 06/09/18 Atorvastatin 40MG (LIPITOR 40MG) 40 Mg Tablet, 40 MG PO HS for 30 Days, #30 TABLET Prov:DAVY HYDE MD 06/09/18 Amiodarone Hcl (CORDARONE) 200 Mg Tablet, 200 MG PO BID for 30 Days, #60 TABLET Prov:DAVY HYDE MD 06/09/18 Apixaban (Eliquis) 2.5 Mg Tablet, 2.5 MG PO BID for 30 Days, #60 TABLET Prov:DAVY HYDE MD 06/09/18 Acetaminophen With Codeine (TYLENOL WITH CODEINE #4 TABLET) 1 Each Tablet, 1-2 EACH PO Q4 PRN for PAIN, #30 TABLET 2 Refills Prov:LILIBETH BOSS NP 11/04/16 Reported Medications Tramadol Hcl (TRAMADOL HCL) 50 Mg Tablet, 1 TAB PO Q6 for PAIN, #25 TAB 1 Refill 06/09/18 Metformin Hcl (METFORMIN HCL ER) 500 Mg Tab.er.24, 1 TAB PO DAILY, #90 TAB 1 Refill 10/28/16 Pantoprazole Sodium (PROTONIX) 40 Mg Tablet.dr, 1 TAB PO BID, #30 TAB 5 Refills 10/27/16 Carbidopa/Levodopa (SINEMET 25-100 MG TABLET) 1 Each Tablet, 1 TAB PO TID, #90 TAB 5 Refills 10/27/16 Clonazepam (CLONAZEPAM) 0.5 Mg Tablet, 1 TAB PO TID, #60 TAB 1 Refill 10/27/16 Aspirin (ASPIR 81) 81 Mg Tablet.dr, 1 TAB PO DAILY, #30 TAB 5 Refills 10/27/16 Carvedilol 6.25MG (COREG 6.25MG) 6.25 Mg Tablet, 1 TAB PO BID, #180 TAB 1 Refill 10/27/16 Digoxin (Digitek) 125 Mcg Tablet, 125 MCG PO DAILY, TABLET 10/27/16 Paroxetine Hcl (PAROXETINE HCL) 20 Mg Tablet, 1 TAB PO HS, #30 TAB 5 Refills 10/27/16 Discontinued Reported Medications Warfarin Sodium (WARFARIN SODIUM) 5 Mg Tablet, 0.5 TAB PO DAILY, #90 TAB 3 Refills TUESDAY-TUESDAY AND Tuesday10/27/16 Warfarin Sodium (WARFARIN SODIUM) 5 Mg Tablet, 1 TAB PO DAILY, #90 TAB 1 Refill [id number] AND Tuesday10/27/16 Simvastatin (SIMVASTATIN) 20 Mg Tablet, 1 TAB PO HS, #30 TAB 5 Refills 10/27/16 Past Medical History Medical History: arrhythmia, diabetes Surgical History: cardiac cath Social History Smoking: non-smoker Alcohol Use: none Drug Use: none Constitutional: no symptoms reported EENTM: no symptoms reported Respiratory: no symptoms reported Cardiovascular: no symptoms reported Gastrointestinal: no symptoms reported Skin: see HPI All Other Systems: Reviewed and Negative Physical Exam General Appearance: alert, no distress Neuro/Vascular/Tendon: no vascular compromise, sensation nml, no tendon injury , nml ROM Skin: no infection, healing wound (left leg with some change in the skin color posteriorly) Head/ENT: nml inspection, pharynx nml Neck/Back: nml inspection, non-tender, painless ROM Respiratory: chest non-tender, no resp. distress, breath sounds nml CVS: reg. rate & rhythm, heart sounds nml Abdomen: non-tender, no organomegaly Departure Time of Disposition: 18:08 Disposition: 09 ADMITTED INPATIENT Impression: Primary Impression: Encounter for postoperative wound check Condition: Stable Referrals: MONET HERNANDEZ (PCP) PRIMARY CARE PROVIDER Comments Admitted by Dr. Calle Duration or Time Spent with Pa: 30 mins ELIANA DELGADILLO MD Jun 10, 2018 17:48
--- NOTE | 2018-06-10 17:50 | NUR ---
MILAGRO DOCTOR LEONA SPOKE WITH DOCTOR HUMPHREY IN REGARDS TO PATIENT, WILL COME TO THE ED TO SEE PATIENT.
--- NOTE | 2018-06-10 18:00 | NUR ---
dr ana perez at bedside
[2018-06-10 18:30] VITALS: BP 116/60
--- NOTE | 2018-06-10 18:35 | NUR ---
REPORT RECEIVED REPORT ASSUMED CARE. PATIENT IN ROOM WITH FAMILY AT BEDSIDE. O2 ON AT 2LPM PER NC. WOUND OPEN TO AIR AT THIS TIME. DR. HUMPHREY HAD REMOVED DRESSING. PATIENT TO BE ADMITTED TO MED SURG FLOOR. NO BED ASSIGNMENT YET.
[2018-06-10 19:30] VITALS: BP 114/70
--- NOTE | 2018-06-10 20:00 | NUR ---
WOUND WOUND WAS LEFT ROSY BY DR. HUMPHREY. DRESSING APPLIED PER ORDER FROM DR. MELIZA CAMPOVERDE TO COVER OPEN FACSIOTOMY AREA TO LATERAL LOWER LEG WITH ADAPTIC AND COVERED WITH ABD AND SECURED WITH KERLEX AND TAPE. WOUND ON TOP OF FOOT ALSO COVERED WITH ADAPTIC AND GAUZE AND SECURED WITH KERLEX AND TAPE. INCISION TO MEDIAL LT LOWER LEG HAS VASELINE GAUZE INTACT AND COVERED WITH ABD ALSO AND SECURED WITH KERLEX. WOUND CARE NURSE IS TO COME EVAL WOUND.
--- NOTE | 2018-06-10 20:14 | NUR ---
ALLERGIES PATIENT STATES THAT HE IS NOT ALLERGIC TO CODEINE BUT IT IS LISTED ONE. FAMILY STATES THAT HE HAS HAD CODEINE AT THE SNF. HE HAD ONE TODAY AND HAS NOT HAD A REACTION SINCE HE HAS TAKEN IT. SPOKE WITH DR. HAIDER AND HE IS OKAY WITH TAKING ALLERGY OFF LIST. ALLERGY REMOVED.
[2018-06-10 20:30] VITALS: BP 127/75
[2018-06-10 21:00] VITALS: BP 131/64
--- NOTE | 2018-06-10 21:15 | NUR ---
DEPART PATIENT TAKEN TO 341 VIA STRETCHER. TRANSFERRED TO BED AND POSITIONED FOR COMFORT. O2 PLACED AT 2LPM PER NC. REPORT GIVEN TO ROBERTO ANGULO RELINQUISHED CARE.
[2018-06-10] MEDS ORDERED: TYLENOL #4 PO PRN (21:30)
[2018-06-10 22:18] VITALS: BP 129/67
[2018-06-10] MEDS ORDERED: SINEMET 25/100 ONE (22:18)
[2018-06-10] MEDS ORDERED: LIPITOR ONE (22:18)
[2018-06-10] MEDS ORDERED: COREG ONE (22:18)
[2018-06-10] MEDS ORDERED: KLONOPIN ONE (22:19)
[2018-06-10] MEDS: KLONOPIN PO SCH (22:28)
[2018-06-10] MEDS: SINEMET 25/100 PO SCH (22:28)
[2018-06-10] MEDS: ALTACE PO SCH (22:29)
[2018-06-10] MEDS: AUGMENTIN 875-125 TABLET PO SCH (22:29)
[2018-06-10] MEDS: PAXIL PO SCH (22:30)
[2018-06-10] MEDS: COREG PO SCH (22:30)
[2018-06-10] MEDS: LIPITOR PO SCH (22:30)
[2018-06-10] MEDS: CORDARONE PO SCH (22:33)
[2018-06-10] MEDS ORDERED: LIPITOR PO SCH (23:00)
[2018-06-11] VITALS (7 sets, daily range): BP systolic 94–124; BP diastolic 53–71
[2018-06-11] MEDS ORDERED: ULTRAM PO SCH
[2018-06-11] MEDS ORDERED: ULTRAM PO PRN (05:30)
[2018-06-11] MEDS: ALTACE PO SCH ×2 (08:33→21:00)
[2018-06-11] MEDS: THERA PO SCH (08:41)
[2018-06-11] MEDS: SINEMET 25/100 PO SCH ×3 (08:41→20:35)
[2018-06-11] MEDS: AUGMENTIN 875-125 TABLET PO SCH ×2 (08:41→16:40)
[2018-06-11] MEDS: FIBERCON PO SCH (08:42)
[2018-06-11] MEDS: KLONOPIN PO SCH ×3 (08:42→20:35)
[2018-06-11] MEDS: LANOXIN PO SCH (08:42)
[2018-06-11] MEDS: CORDARONE PO SCH ×2 (08:43→20:35)
[2018-06-11] MEDS: PROTONIX PO SCH ×2 (08:45→20:36)
[2018-06-11] MEDS ORDERED: PROTONIX PO SCH (09:00)
[2018-06-11] MEDS ORDERED: GLUCOPHAGE XR PO SCH (09:00)
[2018-06-11] MEDS: COREG PO SCH ×2 (10:58→20:36)
[2018-06-11] MEDS: TYLENOL #3 PO PRN ×2 (12:05→19:25)
--- NOTE | 2018-06-11 13:08 | HPH ---
ADMIT DATE: 06/10/2018 INTERIM NOTE HISTORY OF PRESENT ILLNESS: The patient is a 77-year-old male who underwent a fasciotomy of all four compartments of his left lower leg as well as drainage of a large hematoma of the anterolateral compartment of his left leg on 06/03/2018. Please refer to his previous history and physical. The patient was [facility] to the [facility] in [place] on 06/09/2018 with a wound VAC. At that point, he was stable. The patient had his wound VAC changed yesterday afternoon at the [facility]. The family was concerned because they felt like there were some new skin lesions about the leg and they were not comfortable with him being cared for in that facility and therefore, the family brought him back to the [facility]. I inspected the patient's wounds. The lateral muscle belly was clean with healthy granulation tissue. Some of the skin edges anteriorly and posteriorly were questionable as to long-term skin viability. The patient's wound did not appear to be infected. Clinically, the patient was stable. The patient was admitted to the hospital by myself on 06/10/2018. MEDICATIONS: The patient's medications are on the chart. ALLERGIES: HE IS ALLERGIC TO MORPHINE AND TRAMADOL. The patient's previous history and physical are on the chart. The patient's vital signs are stable. He is afebrile. He still has some weakness in his toe extensors on the left side. He claims to have normal sensation about the first webspace. PLAN: The patient is being readmitted to the hospital for wound care. He will need wound debridement tomorrow. We will try to get him set up to go to the [facility] wound care [facility] in [place] later in the week once we secured the viability of his wounds. Oseas Calle MD DR: ANILA/gabby JOB# [id number]
--- NOTE | 2018-06-11 14:23 | NUR ---
STATUS PT WAS TRANSFERRED TO RECLINER X 1 PERSON MAX ASSIST. PT WAS ABLE TO TOLERATE 90 MINS IN THE CHAIR. PT WAS SHAVED DURING THIS TIME. PT WAS THEN TRANSFERRED BACK TO BED X1 MAX ASSIST. LEGS ELEVATED AND LEFT LEG REINFORCED WITH ABD AND KERLEX AT THIS TIME. PT CALL LIGHT IN BED FAMILY AT BEDSIDE
[2018-06-11 16:35] LABS: BASOPHIL % 0.1 % (0.0-0.2); EOSINOPHIL # 0.2 10^3/uL (0.0-0.2); EOSINOPHIL % 3.2 % (0.0-5.0); HEMOGLOBIN 9.3 g/dL (13.9-16.3); LYMPHOCYTES # 0.6 10^3/uL (1.0-4.8); LYMPHOCYTES % 8.3 % (24.0-44.0); MEAN CELL HGB 30.6 pg (26-34); MEAN CELL HGB CONCENTRATION 32.1 g/dL (33-37); MEAN CORP VOLUME 95.4 fL (78-100); NEUTROPHIL # 5.4 10^3/uL (1.8-7.7); NEUTROPHILS % 74.1 % (41.0-85.0); WHITE BLOOD CELL 7.3 10^3/uL (4.5-11.0)
[2018-06-11 16:47] LABS: CALCIUM 8.4 mg/dL (8.4-10.5)
--- NOTE | 2018-06-11 17:35 | PRM.CONS ---
Consultation Reason for Consult: Reason for Consultation: Medical Management History of Present Illness History of Patient Comments Patient is a 77 F PMH of Parkinson's Disease, DM, heart failure with reduced EF , CAD s/p stent, Chronic Afib, HTN being readmitted after recent hospitalization for LLE Hematoma with Compartment syndrome s/p Fasciotomy. Patient was d/c to SNF with Wound Vac in place and when wound vac changed, there were lesions of healing leg that appeared to be necrotic tissue that patient/family were worried about. Patient sent back to hospital for evaluation. Ortho will take patient to OR in AM for further debridement. Medicine team has been consulted for medical management of comorbidities. Labs reviewed. Patient denies complaints. No palpitations, no chest pain, no shortness of breath, no fever, no chills. Pain is controlled. Past Medical History 1. Parkinson's Disease 2. HTN 3. DM 4. HLD 5. Chronic Afib 6. CAD 7. OA Past Surgical History 1. LHC with PCI/Stenting x 1 2. TKA bilateral knees 3. ICD Social History: No tobacco, no drugs, no alcohol use Family History: noncontributory Review of Systems Constitutional: No: Fever, Chills Eyes: No: Conjunctivae inflammation, Eyelid inflammation ENT: No: Nose discharge, Nose congestion Respiratory: No: Cough, Shortness of breath, SOB with excertion, Wheezing Cardiovascular: No: Chest Pain, Palpitations, Edema Gastrointestinal: No: Nausea, Vomiting, Abdominal Pain Genitourinary: No Hematuria, No Retention Musculoskeletal: No: neck pain, back pain Skin: Lesions; No: Rash, Jaundice, Bruising Neurological: Weakness, Incoordination; No: Numbness, Change in speech, Confusion, Seizures Allergies: Coded Allergies: morphine (Verified Allergy, Severe, HALLUCINATIONS, 10/27/16) Scheduled Amiodarone Hcl (Cordarone), 200 MG PO BID Amoxicillin/Potassium Clav (Augmentin 875-125 Tablet), 1 EACH PO BIDM Apixaban (Eliquis), 2.5 MG PO BID Aspirin (Aspir 81), 1 TAB PO DAILY, (Reported) Atorvastatin 40MG (Lipitor 40MG), 40 MG PO HS Calcium Polycarbophil (Fibercon), 625 MG PO DAILY Carbidopa/Levodopa (Sinemet 25-100 Mg Tablet), 1 TAB PO TID, (Reported) Carvedilol 6.25MG (Coreg 6.25MG), 1 TAB PO BID, (Reported) Clonazepam (Clonazepam), 1 TAB PO TID, (Reported) Digoxin (Digitek), 125 MCG PO DAILY, (Reported) Metformin Hcl (Metformin Hcl Er), 1 TAB PO DAILY, (Reported) Pantoprazole Sodium (Protonix), 1 TAB PO BID, (Reported) Pantoprazole Sodium (Protonix), 40 MG PO DAILY Paroxetine Hcl (Paroxetine Hcl), 1 TAB PO HS, (Reported) Ramipril 2.5MG (Altace 2.5MG), 2.5 MG PO BID Tramadol Hcl (Tramadol Hcl), 1 TAB PO Q6, (Reported) [Multivitamin,Therapeutic], 1 EACH PO DAILY Scheduled PRN Acetaminophen With Codeine (Tylenol With Codeine #4 Tablet), 1-2 EACH PO Q4 PRN for PAIN Discontinued Medications Simvastatin (Simvastatin), 1 TAB PO HS, (Reported) Discontinued Reason: Cancel Warfarin Sodium (Warfarin Sodium), 1 TAB PO DAILY, (Reported) Discontinued Reason: HOLD Warfarin Sodium (Warfarin Sodium), 0.5 TAB PO DAILY, (Reported) Discontinued Reason: HOLD VTE VTE Risk Total Score: 5 VTE Risk Score VTE Risk: Score 0-1 = Low Risk (Aggressive mobilization; early ambulation; no VTE prophylaxis required) Score 2: Moderate Risk (Intermittent/Pneumatic Compression Device OR Lovenox/Heparin/Coumadin) Score 3-4: High Risk (Intermittent/Pneumatic Compression Device AND Lovenox/Heparin/Coumadin) Score > or =5: Highest Risk (Intermittent/Pneumatic Compression Device AND Lovenox/Heparin/Coumadin) Assessment/Plan Assessment/Plan Assessment/Plan Patient is a 77 F PMH of Parkinson's Disease, DM, heart failure with reduced EF , CAD s/p stent, Chronic Afib, HTN being readmitted after recent hospitalization for LLE Hematoma with Compartment syndrome s/p Fasciotomy. Patient History: No known health problems 32 MOTHER, , Age:87 19 CHILD 19 CHILD, , Age:27 19 CHILD, , Age:54 Parkinson's disease G8 BROTHER, , Age:81 No Family History of: Alzheimer's disease Asthma Cerebrovascular disorder Chronic obstructive pulmonary disease Congestive heart failure Diabetes insipidus Diabetes mellitus Hypertension Plan 1. 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 OR in AM for surgical debridement. Cont PO abx. Wound care consulted. 2. DM: cont Oral hypoglycemics. 3. HTN: cont BB, DONTAE 4. Parkinson's Disease: cont Sinemet 5. Chronic Afib: cont dig/Amio. Restart Eliquis for anticoagulation per surgery. 6. HLD: cont Statin 7. Heart Failure with Reduced EF: no acute exacerbation. Cont DONTAE/BB. 8. PPx: PPI JATIN LOTT MD Jun 11, 2018 17:35
--- NOTE | 2018-06-11 20:35 | NUR ---
altace 2.5mg po held at this time, report to charge nurse. will continue to monitor
[2018-06-11] MEDS ORDERED: LIPITOR PO SCH (21:00)
--- NOTE | 2018-06-11 21:22 | NUR ---
Surgical bath given at this time, pt tolerated well, at bedside
[2018-06-12] VITALS (8 sets, daily range): BP systolic 133–161; BP diastolic 73–89
[2018-06-12 05:26] LABS: BASOPHIL % 0.2 % (0.0-0.2); EOSINOPHIL # 0.3 10^3/uL (0.0-0.2); EOSINOPHIL % 4.6 % (0.0-5.0); HEMOGLOBIN 9.1 g/dL (13.9-16.3); LYMPHOCYTES # 0.7 10^3/uL (1.0-4.8); LYMPHOCYTES % 11.7 % (24.0-44.0); MEAN CELL HGB 30.2 pg (26-34); MEAN CELL HGB CONCENTRATION 31.6 g/dL (33-37); MEAN CORP VOLUME 95.7 fL (78-100); MEAN PLATELET VOLUME 9.1 fL (7.8-11.0); MONOCYTES # 0.9 10^3/uL (0.3-0.8); MONOCYTES % 13.5 % (5.0-12.0); NEUTROPHIL # 4.4 10^3/uL (1.8-7.7); NEUTROPHILS % 69.4 % (41.0-85.0); WHITE BLOOD CELL 6.3 10^3/uL (4.5-11.0)
[2018-06-12 06:13] LABS: CALCIUM 8.5 mg/dL (8.4-10.5); CARBON DIOXIDE 29.7 mmol/L (20.0-32)
--- NOTE | 2018-06-12 06:13 | NUR ---
REPORT TO BE GIVEN TO 0630 SHIFT, RADAMES MEJIA AND KRISTI MEJIA
--- NOTE | 2018-06-12 06:48 | PCM.EKG ---
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
[2018-06-12] MEDS ORDERED: DECADRON ONE (06:50)
[2018-06-12] MEDS ORDERED: AMIDATE IV ONE (06:50)
[2018-06-12] MEDS ORDERED: ZOFRAN ONE (06:50)
[2018-06-12] MEDS ORDERED: DIPRIVAN IV ONE (06:51)
[2018-06-12] MEDS ORDERED: SUBLIMAZE ONE (06:51)
[2018-06-12] MEDS ORDERED: NS 100ML 100 ML IV ONE ×2 (06:52→16:34)
--- NOTE | 2018-06-12 07:00 | NUR ---
npo pT npo after midnight for the I AND D PROCEDURE.
[2018-06-12] MEDS: AUGMENTIN 875-125 TABLET PO SCH ×2 (08:00→16:37)
--- NOTE | 2018-06-12 08:56 | PRM.PN ---
Subjective Subjective Date: Jun 12, 2018 Time: 08:49 Subjective Patient going to OR today for further debridement of LLE. Labs reviewed, patient denies complaints. No fever, overnight. Pain controlled. Codeine causing sedation. Patient History: No known health problems 32 MOTHER, , Age:87 19 CHILD 19 CHILD, , Age:27 19 CHILD, , Age:54 Parkinson's disease G8 BROTHER, , Age:81 No Family History of: Alzheimer's disease Asthma Cerebrovascular disorder Chronic obstructive pulmonary disease Congestive heart failure Diabetes insipidus Diabetes mellitus Hypertension VTE VTE Risk Total Score: 5 VTE Risk Score VTE Risk: Score 0-1 = Low Risk (Aggressive mobilization; early ambulation; no VTE prophylaxis required) Score 2: Moderate Risk (Intermittent/Pneumatic Compression Device OR Lovenox/Heparin/Coumadin) Score 3-4: High Risk (Intermittent/Pneumatic Compression Device AND Lovenox/Heparin/Coumadin) Score > or =5: Highest Risk (Intermittent/Pneumatic Compression Device AND Lovenox/Heparin/Coumadin) Review of Systems Allergies: Coded Allergies: morphine (Verified Allergy, Severe, HALLUCINATIONS, 10/27/16) Scheduled Amiodarone Hcl (Cordarone), 200 MG PO BID Amoxicillin/Potassium Clav (Augmentin 875-125 Tablet), 1 EACH PO BIDM Apixaban (Eliquis), 2.5 MG PO BID Aspirin (Aspir 81), 1 TAB PO DAILY, (Reported) Atorvastatin 40MG (Lipitor 40MG), 40 MG PO HS Calcium Polycarbophil (Fibercon), 625 MG PO DAILY Carbidopa/Levodopa (Sinemet 25-100 Mg Tablet), 1 TAB PO TID, (Reported) Carvedilol 6.25MG (Coreg 6.25MG), 1 TAB PO BID, (Reported) Clonazepam (Clonazepam), 1 TAB PO TID, (Reported) Digoxin (Digitek), 125 MCG PO DAILY, (Reported) Metformin Hcl (Metformin Hcl Er), 1 TAB PO DAILY, (Reported) Pantoprazole Sodium (Protonix), 1 TAB PO BID, (Reported) Pantoprazole Sodium (Protonix), 40 MG PO DAILY Paroxetine Hcl (Paroxetine Hcl), 1 TAB PO HS, (Reported) Ramipril 2.5MG (Altace 2.5MG), 2.5 MG PO BID Tramadol Hcl (Tramadol Hcl), 1 TAB PO Q6, (Reported) [Multivitamin,Therapeutic], 1 EACH PO DAILY Scheduled PRN Acetaminophen With Codeine (Tylenol With Codeine #4 Tablet), 1-2 EACH PO Q4 PRN for PAIN Discontinued Medications Simvastatin (Simvastatin), 1 TAB PO HS, (Reported) Discontinued Reason: Cancel Warfarin Sodium (Warfarin Sodium), 1 TAB PO DAILY, (Reported) Discontinued Reason: HOLD Warfarin Sodium (Warfarin Sodium), 0.5 TAB PO DAILY, (Reported) Discontinued Reason: HOLD Objective Vitals and I/O Vital Sign - Last 24 Hours 06/11/18 06/11/18 06/11/18 06/11/18 10:36 10:58 11:04 16:44 Temp 98.8 98.8 98.8 98.8 Pulse 84 81 70 Resp 18 18 B/P (MAP) 116/71 116/71 (86) 103/58 (73) Pulse Ox 93 96 O2 Delivery Nasal Cannula Nasal Canula Nasal Canula O2 Flow Rate 2.00 2.00 2.00 06/11/18 06/11/18 06/11/18 06/11/18 19:20 19:20 20:35 20:36 Temp 98.5 98.5 Pulse 66 66 66 Resp 18 B/P (MAP) 124/66 (85) 124/66 124/66 Pulse Ox 95 O2 Delivery Nasal Cannula Nasal Canula O2 Flow Rate 2.00 2.00 06/11/18 06/11/18 06/12/18 20:36 23:33 05:08 Temp 98.1 98.8 98.1 98.8 Pulse 67 75 65 Resp 16 18 18 B/P (MAP) 109/65 (80) 136/74 (94) Pulse Ox 95 97 93 O2 Delivery Nasal Cannula Nasal Canula Nasal Canula O2 Flow Rate 2.00 2.00 2.00 FiO2 28 Intake and Output 06/11/18 06/11/18 06/12/18 15:00 23:00 07:00 Intake Total 700 ml Output Total 650 ml 575 ml Balance 50 ml -575 ml General: Alert, Oriented X3, Cooperative, No acute distress HEENT: Atraumatic, PERRLA, EOMI, Mucous membr. moist/pink Neck: Supple, No JVD Lungs: Clear to auscultation, Normal air movement Heart: Normal S1, Normal S2, No murmurs Abdomen: Normal bowel sounds, Soft, No tenderness, No masses Extremities: Normal pulses, Other (LLE wound with dressing in place) Skin: Other (LLE wound with dressing in place) Neuro: Normal speech, Strength at 5/5 X4 ext, Normal tone, Sensation intact, Cranial nerves 3-12 NL, Other (resting tremor worse on right side) Psych/Mental Status: Mental status NL, Mood NL All Results(Lab/Rad) Laboratory Tests Test 06/11/18 16:25 06/12/18 05:17 White Blood Count 7.3 10^3/uL 6.3 10^3/uL Red Blood Count 3.04 10^6/uL 3.01 10^6/uL Hemoglobin 9.3 g/dL 9.1 g/dL Hematocrit 29.0 % 28.8 % Mean Corpuscular Volume 95.4 fL 95.7 fL Mean Corpuscular Hemoglobin 30.6 pg 30.2 pg Mean Corpuscular Hemoglobin Concent 32.1 g/dL 31.6 g/dL Red Cell Distribution Width 16.0 % 16.0 % Platelet Count 261 10^3/uL 267 10^3/uL Mean Platelet Volume 9.0 fL 9.1 fL Neutrophils (%) (Auto) 74.1 % 69.4 % Lymphocytes (%) (Auto) 8.3 % 11.7 % Monocytes (%) (Auto) 14.0 % 13.5 % Neutrophils # (Auto) 5.4 10^3/uL 4.4 10^3/uL Lymphocytes # (Auto) 0.6 10^3/uL 0.7 10^3/uL Monocytes # (Auto) 1.0 10^3/uL 0.9 10^3/uL Absolute Immature Granulocyte (auto 0.02 10^3 u/L 0.04 10^3 u/L Eosinophils % 3.2 % 4.6 % Basophils % 0.1 % 0.2 % Basophils # 0.0 10^3/uL 0.0 10^3/uL Eosinophil Count 0.2 10^3/uL 0.3 10^3/uL Sodium Level 141 mmol/L 142 mmol/L Potassium Level 4.0 mmol/L 3.8 mmol/L Chloride Level 103.0 mmol/L 104.0 mmol/L Carbon Dioxide Level 30.0 mmol/L 29.7 mmol/L Anion Gap 12.0 12.1 Blood Urea Nitrogen 15 mg/dL 14 mg/dL Creatinine 0.98 mg/dL 0.98 mg/dL Estimated GFR () 89.3 89.3 BUN/Creatinine Ratio 15.0 14.0 Glucose Level 112 mg/dL 104 mg/dL Calcium Level 8.4 mg/dL 8.5 mg/dL Total Bilirubin 1.2 mg/dL 1.1 mg/dL Aspartate Amino Transf (AST/SGOT) 31 U/L 31 U/L Alanine Aminotransferase (ALT/SGPT) 18 U/L 9 U/L Alkaline Phosphatase 65 U/L 65 U/L Total Protein 5.8 g/dL 5.9 g/dL Albumin 2.2 g/dL 2.4 g/dL Globulin 3.6 3.5 Percent Immature Gran (Cell Imm) 0.30 % 0.60 % Current Medications Medications (Trade) Dose Ordered Sig/Feliz Route PRN Reason Start Time Stop Time Status Last Admin Dose Admin Acetaminophen/ Codeine Phosphate (Tylenol #4) 1 tablet Q4 PRN PO PAIN 06/10/18 21:30 06/11/18 11:55 DC 06/10/18 22:32 Amiodarone HCl (Cordarone) 200 mg BID PO 06/10/18 21:30 07/10/18 21:29 06/11/18 20:35 Amoxicillin/ Clavulanate Potassium (Augmentin 875-125 Tablet) 1 each BIDM PO 06/11/18 08:00 07/11/18 07:59 06/11/18 16:40 Atorvastatin Calcium (Lipitor) 40 mg HS PO 06/11/18 21:00 06/11/18 21:00 DC Calcium Polycarbophil (Fibercon) 625 mg DAILY PO 06/11/18 09:00 07/11/18 08:59 06/11/18 08:42 Carbidopa/Levodopa (Sinemet 25/100) 1 each TID PO 06/11/18 09:00 07/11/18 08:59 06/11/18 20:35 Carvedilol (Coreg) 6.25 mg BID PO 06/11/18 09:00 07/11/18 08:59 06/11/18 20:36 Clonazepam (KlonoPIN) 0.5 mg TID PO 06/11/18 09:00 07/11/18 08:59 06/11/18 20:35 Digoxin (Lanoxin) 125 mcg DAILY PO 06/11/18 09:00 07/11/18 08:59 06/11/18 08:42 Pantoprazole Sodium (Protonix) 40 mg BID PO 06/11/18 09:00 07/11/18 08:59 06/11/18 20:36 Pantoprazole Sodium (Protonix) 40 mg DAILY PO 06/11/18 09:00 06/11/18 09:00 DC Paroxetine HCl (Paxil) 20 mg HS PO 06/11/18 21:00 07/11/18 20:59 06/10/18 22:30 Ramipril (Altace) 2.5 mg BID PO 06/10/18 21:30 07/10/18 21:29 06/10/18 22:29 Tramadol HCl (Ultram) 50 mg Q6 PO 06/11/18 00:00 06/11/18 05:08 DC Metformin HCl (Glucophage Xr) 1 mg DAILY PO 06/11/18 09:00 06/11/18 12:45 DC Atorvastatin Calcium (Lipitor) 40 mg STK-MED ONCE .ROUTE 06/10/18 22:18 06/10/18 22:19 DC Carvedilol (Coreg) 6.25 mg STK-MED ONCE .ROUTE 06/10/18 22:18 06/10/18 22:20 DC Carbidopa/Levodopa (Sinemet 25/100) 1 each STK-MED ONCE .ROUTE 06/10/18 22:18 06/10/18 22:20 DC Clonazepam (Klonopin) 0.5 mg STK-MED ONCE .ROUTE 06/10/18 22:19 06/10/18 22:21 DC Atorvastatin Calcium (Lipitor) 40 mg HS PO 06/10/18 23:00 06/11/18 05:08 DC Tramadol HCl (Ultram) 50 mg Q6 PRN PO PAIN 4 - 6 06/11/18 05:30 06/11/18 11:55 DC Atorvastatin Calcium (Lipitor) 40 mg HS PO 06/11/18 21:00 07/11/18 20:59 06/10/18 22:30 Acetaminophen/ Codeine Phosphate (Tylenol #3) 1 each Q4H PRN PO PAIN 4 - 6 06/11/18 12:00 07/11/18 11:59 06/11/18 12:05 Acetaminophen/ Codeine Phosphate (Tylenol #3) 2 each Q4H PRN PO PAIN 7 - 10 06/11/18 12:00 07/11/18 11:59 06/11/18 19:25 Metformin HCl (Glucophage Xr) 500 mg DAILY PO 06/12/18 09:00 07/12/18 08:59 Dexamethasone Sodium Phosphate (Decadron) 4 mg STK-MED ONCE .ROUTE 06/12/18 06:50 06/12/18 06:52 DC Ondansetron HCl (Zofran) 4 mg STK-MED ONCE .ROUTE 06/12/18 06:50 06/12/18 06:52 DC Etomidate (Amidate) 40 mg STK-MED ONCE IV 06/12/18 06:50 06/12/18 06:52 DC Fentanyl Citrate (Sublimaze) 100 mcg STK-MED ONCE .ROUTE 06/12/18 06:51 06/12/18 06:52 DC Propofol (Diprivan) 200 mg STK-MED ONCE IV 06/12/18 06:51 06/12/18 06:52 DC Sodium Chloride 100 ml @ ud STK-MED ONCE IV 06/12/18 06:52 06/12/18 06:53 DC Course Sepsis Screening Results: Posi: POSITIVE Sepsis Qualifier/Stage: SEPSIS RISK Duration or Total Time Spent w: 30 mins Vitals & review Data Vital Sign - Last 24 Hours 06/11/18 06/11/18 06/11/18 06/11/18 10:36 10:58 11:04 16:44 Temp 98.8 98.8 98.8 98.8 Pulse 84 81 70 Resp 18 18 B/P (MAP) 116/71 116/71 (86) 103/58 (73) Pulse Ox 93 96 O2 Delivery Nasal Cannula Nasal Canula Nasal Canula O2 Flow Rate 2.00 2.00 2.00 06/11/18 06/11/18 06/11/18 06/11/18 19:20 19:20 20:35 20:36 Temp 98.5 98.5 Pulse 66 66 66 Resp 18 B/P (MAP) 124/66 (85) 124/66 124/66 Pulse Ox 95 O2 Delivery Nasal Cannula Nasal Canula O2 Flow Rate 2.00 2.00 06/11/18 06/11/18 06/12/18 20:36 23:33 05:08 Temp 98.1 98.8 98.1 98.8 Pulse 67 75 65 Resp 16 18 18 B/P (MAP) 109/65 (80) 136/74 (94) Pulse Ox 95 97 93 O2 Delivery Nasal Cannula Nasal Canula Nasal Canula O2 Flow Rate 2.00 2.00 2.00 FiO2 28 Intake and Output 06/11/18 06/11/18 06/12/18 15:00 23:00 07:00 Intake Total 700 ml Output Total 650 ml 575 ml Balance 50 ml -575 ml Laboratory Tests Test 06/11/18 16:25 06/12/18 05:17 White Blood Count 7.3 10^3/uL 6.3 10^3/uL Red Blood Count 3.04 10^6/uL 3.01 10^6/uL Hemoglobin 9.3 g/dL 9.1 g/dL Hematocrit 29.0 % 28.8 % Mean Corpuscular Volume 95.4 fL 95.7 fL Mean Corpuscular Hemoglobin 30.6 pg 30.2 pg Mean Corpuscular Hemoglobin Concent 32.1 g/dL 31.6 g/dL Red Cell Distribution Width 16.0 % 16.0 % Platelet Count 261 10^3/uL 267 10^3/uL Mean Platelet Volume 9.0 fL 9.1 fL Neutrophils (%) (Auto) 74.1 % 69.4 % Lymphocytes (%) (Auto) 8.3 % 11.7 % Monocytes (%) (Auto) 14.0 % 13.5 % Neutrophils # (Auto) 5.4 10^3/uL 4.4 10^3/uL Lymphocytes # (Auto) 0.6 10^3/uL 0.7 10^3/uL Monocytes # (Auto) 1.0 10^3/uL 0.9 10^3/uL Absolute Immature Granulocyte (auto 0.02 10^3 u/L 0.04 10^3 u/L Eosinophils % 3.2 % 4.6 % Basophils % 0.1 % 0.2 % Basophils # 0.0 10^3/uL 0.0 10^3/uL Eosinophil Count 0.2 10^3/uL 0.3 10^3/uL Sodium Level 141 mmol/L 142 mmol/L Potassium Level 4.0 mmol/L 3.8 mmol/L Chloride Level 103.0 mmol/L 104.0 mmol/L Carbon Dioxide Level 30.0 mmol/L 29.7 mmol/L Anion Gap 12.0 12.1 Blood Urea Nitrogen 15 mg/dL 14 mg/dL Creatinine 0.98 mg/dL 0.98 mg/dL Estimated GFR () 89.3 89.3 BUN/Creatinine Ratio 15.0 14.0 Glucose Level 112 mg/dL 104 mg/dL Calcium Level 8.4 mg/dL 8.5 mg/dL Total Bilirubin 1.2 mg/dL 1.1 mg/dL Aspartate Amino Transf (AST/SGOT) 31 U/L 31 U/L Alanine Aminotransferase (ALT/SGPT) 18 U/L 9 U/L Alkaline Phosphatase 65 U/L 65 U/L Total Protein 5.8 g/dL 5.9 g/dL Albumin 2.2 g/dL 2.4 g/dL Globulin 3.6 3.5 Percent Immature Gran (Cell Imm) 0.30 % 0.60 % Current Medications Medications (Trade) Dose Ordered Sig/Feliz PRN Reason Start Time Stop Time Status Last Admin Acetaminophen/ Codeine Phosphate (Tylenol #3) 1 each Q4H PRN PAIN 4 - 6 06/11/18 12:00 07/11/18 11:59 06/11/18 12:05 Acetaminophen/ Codeine Phosphate (Tylenol #3) 2 each Q4H PRN PAIN 7 - 10 06/11/18 12:00 07/11/18 11:59 06/11/18 19:25 Amiodarone HCl (Cordarone) 200 mg BID 06/10/18 21:30 07/10/18 21:29 06/11/18 20:35 Amoxicillin/ Clavulanate Potassium (Augmentin 875-125 Tablet) 1 each BIDM 06/11/18 08:00 07/11/18 07:59 06/11/18 16:40 Atorvastatin Calcium (Lipitor) 40 mg HS 06/11/18 21:00 07/11/18 20:59 06/10/18 22:30 Calcium Polycarbophil (Fibercon) 625 mg DAILY 06/11/18 09:00 07/11/18 08:59 06/11/18 08:42 Carbidopa/Levodopa (Sinemet 25/100) 1 each TID 06/11/18 09:00 07/11/18 08:59 06/11/18 20:35 Carvedilol (Coreg) 6.25 mg BID 06/11/18 09:00 07/11/18 08:59 06/11/18 20:36 Clonazepam (KlonoPIN) 0.5 mg TID 06/11/18 09:00 07/11/18 08:59 06/11/18 20:35 Digoxin (Lanoxin) 125 mcg DAILY 06/11/18 09:00 07/11/18 08:59 06/11/18 08:42 Metformin HCl (Glucophage Xr) 500 mg DAILY 06/12/18 09:00 07/12/18 08:59 Pantoprazole Sodium (Protonix) 40 mg BID 06/11/18 09:00 07/11/18 08:59 06/11/18 20:36 Paroxetine HCl (Paxil) 20 mg HS 06/11/18 21:00 07/11/18 20:59 06/10/18 22:30 Ramipril (Altace) 2.5 mg BID 06/10/18 21:30 07/10/18 21:29 06/10/18 22:29 Sepsis Infection Criteria Pres: Suspected Infection LEVEL 1 SEPSIS INFECTION CRITE: ABX Therapy LEVEL 2-SIRS (LIST ALL THAT AP: None/Not assessed Cardiovascular Evidence: Not Assessed or None Hematologic Evidence: None/Not assessed Hepatic Evidence: None/Not assessed Metabolic Evidence: None/Not assessed Neurological Evidence: None/Not assessed Respiratory Evidence: Need for O2 to keep>90% Renal Evidence: None/Not assessed O2 Sat by Pulse Oximetry: 93 Oxygen Flow Rate: 2.00 Assessment/Plan Assessment/Plan Assessment/Plan Patient is a 77 F PMH of Parkinson's Disease, DM, heart failure with reduced EF , CAD s/p stent, Chronic Afib, HTN being readmitted after recent hospitalization for LLE Hematoma with Compartment syndrome s/p Fasciotomy. Plan 1. 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 OR today for debridement. Cont PO abx. 2. DM: cont Oral hypoglycemics. 3. HTN: cont BB, DONTAE 4. Parkinson's Disease: cont Sinemet 5. Chronic Afib: cont dig/Amio. Restart Eliquis for anticoagulation per surgery. 6. HLD: cont Statin 7. Heart Failure with Reduced EF: no acute exacerbation. Cont DONTAE/BB. 8. PPx: PPI JATIN LOTT MD Jun 12, 2018 08:55
[2018-06-12] MEDS: GLUCOPHAGE XR PO SCH (09:00)
[2018-06-12] MEDS: THERA PO SCH (09:00)
[2018-06-12] MEDS: KLONOPIN PO SCH ×3 (09:00→20:42)
[2018-06-12] MEDS: SINEMET 25/100 PO SCH ×3 (09:00→20:42)
[2018-06-12] MEDS: PROTONIX PO SCH ×2 (09:00→20:41)
[2018-06-12] MEDS: CORDARONE PO SCH ×2 (09:00→20:42)
[2018-06-12] MEDS: FIBERCON PO SCH (09:00)
[2018-06-12] MEDS: ALTACE PO SCH ×2 (09:00→20:41)
[2018-06-12] MEDS: COREG PO SCH ×2 (09:00→20:42)
--- NOTE | 2018-06-12 10:00 | NUR ---
DISCHARGE PLAN CASE MANAGEMENT VISITED WITH CONCERNING DISCHARGE PLAN AND NEEDS. PATIENT WAS DISCHARGE TO [facility] ON TUESDAY THEN READMITTED TO [facility] ON TUESDAY. PATIENT'S AND DR. HUMPHREY AGREE [facility] WOULD BE THE BEST FIT FOR THE PATIENT. CM FAXED ALL CLINICAL TO [facility] AND AWAITING REWORK APPROVAL. CM ALSO SPOKE TO EDDA AT [facility] CONCERNING THE UPDATED CLINICAL FAX. DISCHARGE GOAL IS TO DISCHARGE TO [facility] FOR WOUND CARE. CM WILL CONTINUE TO FOLLOW FOR DISCHARGE NEEDS.
--- NOTE | 2018-06-12 12:00 | NUR ---
PRE SURGICAL WIPES CHG WIPES COMPLETED.
[2018-06-12] MEDS ORDERED: SODIUM CHLORIDE IR ONE (12:45)
[2018-06-12] MEDS ORDERED: NS 3000ML IRR IR ONE (12:46)
[2018-06-12] MEDS ORDERED: NS 250ML 250 ML IV ONE (12:58)
--- NOTE | 2018-06-12 13:05 | NUR ---
Pt OFF THE FLOOR FOR PROCEDURE IN HOSPITAL BED, SBAR PROVIDED WITH CONSENT FORM.
[2018-06-12] MEDS ORDERED: NS 1000ML 1,000 ML ONE (13:09)
[2018-06-12] MEDS ORDERED: PHENERGAN IV PRN (16:00)
[2018-06-12] MEDS ORDERED: VENTOLIN IH PRN (16:00)
[2018-06-12] MEDS ORDERED: BENADRYL IV PRN (16:00)
[2018-06-12] MEDS ORDERED: ZOFRAN IV PRN ×2 (16:00)
[2018-06-12] MEDS: SUBLIMAZE IV PRN ×2 (16:02→16:06)
--- NOTE | 2018-06-12 16:20 | NUR ---
ARRIVAL Pt ARRIVED TO THE FLOOR FROM OR IN HOSPITAL BED, Pt AO X 3, FAMILY AT BEDSIDE SPECIAL VS INITIATED. OFFERED FLUIDS AND SNACKS.
[2018-06-12] MEDS ORDERED: ANCEF ONE (16:34)
[2018-06-12] MEDS: LANOXIN PO SCH (16:36)
[2018-06-12] MEDS: ANCEF 1 GM in NS 100ML 100 ML IV SCH ×2 (16:37→23:45)
[2018-06-12] MEDS: TYLENOL #3 PO PRN ×2 (17:58→23:45)
--- NOTE | 2018-06-12 18:02 | NUR ---
c/o of pain pT c/o of pain at " 7, on left FOOT, ADMINISTERED T # 3 2 TABS PER ORDER PRN, WILL REASSESS THE PAIN AGAIN.
--- NOTE | 2018-06-12 18:49 | NUR ---
BEDSIDE REPORT BEDSIDE REPORT GIVEN TO NIGHT NURSE FIFI [facility]UMONT.
--- NOTE | 2018-06-12 19:01 | OPH ---
DATE OF SURGERY: 06/12/2018 PREOPERATIVE DIAGNOSIS: Necrotic left leg wound. POSTOPERATIVE DIAGNOSIS: Necrotic left leg wound. OPERATIVE PROCEDURE: Incision and debridement of skin and subcutaneous tissue, left leg. The anterior flap was 15 cm in length and 1.5 cm in width. The posterior flap was 20 cm in length and approximately 5 cm in width. SURGEON: Oseas Calle M.D. ANESTHESIA: LMA. TOURNIQUET TIME: 7 minutes at 285 mmHg. BLOOD LOSS: 50 mL. DESCRIPTIVE INDICATIONS: The patient is a 77-year-old male who is approximately 9 days status post I and D of a large hematoma of his left lower leg with subsequent four-compartment fasciotomies. The patient had a second debridement initially about 3 days after his initial surgery where the wounds were irrigated and debrided and we debrided some more tissue anteriorly about the wound on the lateral side and we closed the fasciotomy defect medially. At this point, the patient's skin on the lateral side, both anteriorly and posteriorly, has become full thickness as far as the degree of necrosis and there was a large area anteriorly and posteriorly about the anterolateral wound that needed full thickness debridement. The rest of the wound was satisfactory. The patient was placed on operating table in the supine position. A LMA anesthetic was induced without difficulty. The patient had the well-padded tourniquet placed around the left thigh. Left lower extremity was then sterilely prepped and draped. Anteriorly, the patient had a flap of skin that was full thickness necrosis that was 15 cm in length and about 1.5 cm in width. The anterolateral flap debrided full thickness skin and subcutaneous tissue down to the muscle belly. There was some hematoma encountered. Posteriorly, there was a large flap that was approximately 20 cm in length and about 5 cm in width again with full thickness necrotic skin. The patient had the full thickness area debrided with a #10 blade down to the muscle. Again, there was a large amount of hematoma encountered. The remaining skin edges were viable. The medial wound was normal. The patient then had hematoma debrided using the Versajet system. The exposed muscle belly was likewise debrided with the Versajet. There were no signs of infection. The patient then had the tourniquet released after 7 minutes. The patient's any major bleeding was controlled with the cautery. The patient then had a compressive dressing consisting of Adaptic, 4 x 4's, ABD pads, cast padding, Ronaldo wrap applied. The patient was extubated in the operating room, sent to recovery in stable condition. Oseas Calle MD DR: ANILA/gabby JOB# [id number]
[2018-06-12] MEDS: LIPITOR PO SCH (20:41)
[2018-06-12] MEDS: PAXIL PO SCH (20:42)
[2018-06-13 01:11] VITALS: BP 135/85
[2018-06-13 05:04] VITALS: BP 129/71
[2018-06-13 05:23] LABS: HEMOGLOBIN 9.3 g/dL (13.9-16.3); LYMPHOCYTES # 0.5 10^3/uL (1.0-4.8); LYMPHOCYTES % 6.2 % (24.0-44.0); MEAN CELL HGB 30.1 pg (26-34); MEAN CELL HGB CONCENTRATION 31.7 g/dL (33-37); MEAN CORP VOLUME 94.8 fL (78-100); MEAN PLATELET VOLUME 9.2 fL (7.8-11.0); MONOCYTES # 0.5 10^3/uL (0.3-0.8); MONOCYTES % 5.8 % (5.0-12.0); NEUTROPHIL # 6.9 10^3/uL (1.8-7.7); NEUTROPHILS % 87.6 % (41.0-85.0); RED CELL DISTRIBUTION WIDTH 15.7 % (11.5-14.5); WHITE BLOOD CELL 7.9 10^3/uL (4.5-11.0)
[2018-06-13 05:44] LABS: CALCIUM 8.2 mg/dL (8.4-10.5); CARBON DIOXIDE 27.7 mmol/L (20.0-32)
[2018-06-13 05:48] LABS: LYMPHOCYTE 4 % (25-36); MONOCYTE 7 % (3-9); SEGMENTED NEUTROPHILS 89 % (31-76)
[2018-06-13 07:53] VITALS: BP 130/73
--- NOTE | 2018-06-13 08:37 | NUR ---
report report received from vesta rosado lvn assumed care of pt
[2018-06-13] MEDS: ANCEF 1 GM in NS 100ML 100 ML IV SCH (09:23)
[2018-06-13] MEDS: ALTACE PO SCH (09:24)
[2018-06-13] MEDS: GLUCOPHAGE XR PO SCH (09:24)
[2018-06-13] MEDS: KLONOPIN PO SCH (09:24)
[2018-06-13] MEDS: TYLENOL #3 PO PRN (09:25)
[2018-06-13] MEDS: LANOXIN PO SCH (09:25)
[2018-06-13] MEDS: CORDARONE PO SCH (09:25)
[2018-06-13] MEDS: FIBERCON PO SCH (09:25)
[2018-06-13] MEDS: THERA PO SCH (09:26)
[2018-06-13] MEDS: COREG PO SCH (09:26)
[2018-06-13] MEDS: PROTONIX PO SCH (09:26)
[2018-06-13] MEDS: SINEMET 25/100 PO SCH (09:26)
--- NOTE | 2018-06-13 09:31 | PRM.PN ---
Subjective Subjective Date: Jun 13, 2018 Time: 09:30 Subjective Pain ok Up in chair with PT this am VSS HGB 9.6 DC to [facility] today Patient History: No known health problems 32 MOTHER, , Age:87 19 CHILD 19 CHILD, , Age:27 19 CHILD, , Age:54 Parkinson's disease G8 BROTHER, , Age:81 No Family History of: Alzheimer's disease Asthma Cerebrovascular disorder Chronic obstructive pulmonary disease Congestive heart failure Diabetes insipidus Diabetes mellitus Hypertension VTE VTE Risk Total Score: 5 VTE Risk Score VTE Risk: Score 0-1 = Low Risk (Aggressive mobilization; early ambulation; no VTE prophylaxis required) Score 2: Moderate Risk (Intermittent/Pneumatic Compression Device OR Lovenox/Heparin/Coumadin) Score 3-4: High Risk (Intermittent/Pneumatic Compression Device AND Lovenox/Heparin/Coumadin) Score > or =5: Highest Risk (Intermittent/Pneumatic Compression Device AND Lovenox/Heparin/Coumadin) Review of Systems Allergies: Coded Allergies: morphine (Verified Allergy, Severe, HALLUCINATIONS, 10/27/16) Scheduled Amiodarone Hcl (Cordarone), 200 MG PO BID Amoxicillin/Potassium Clav (Augmentin 875-125 Tablet), 1 EACH PO BIDM Apixaban (Eliquis), 2.5 MG PO BID Aspirin (Aspir 81), 1 TAB PO DAILY, (Reported) Atorvastatin 40MG (Lipitor 40MG), 40 MG PO HS Calcium Polycarbophil (Fibercon), 625 MG PO DAILY Carbidopa/Levodopa (Sinemet 25-100 Mg Tablet), 1 TAB PO TID, (Reported) Carvedilol 6.25MG (Coreg 6.25MG), 1 TAB PO BID, (Reported) Clonazepam (Clonazepam), 1 TAB PO TID, (Reported) Digoxin (Digitek), 125 MCG PO DAILY, (Reported) Metformin Hcl (Metformin Hcl Er), 1 TAB PO DAILY, (Reported) Pantoprazole Sodium (Protonix), 1 TAB PO BID, (Reported) Pantoprazole Sodium (Protonix), 40 MG PO DAILY Paroxetine Hcl (Paroxetine Hcl), 1 TAB PO HS, (Reported) Ramipril 2.5MG (Altace 2.5MG), 2.5 MG PO BID Tramadol Hcl (Tramadol Hcl), 1 TAB PO Q6, (Reported) [Multivitamin,Therapeutic], 1 EACH PO DAILY Scheduled PRN Acetaminophen With Codeine (Tylenol With Codeine #4 Tablet), 1-2 EACH PO Q4 PRN for PAIN Discontinued Medications Simvastatin (Simvastatin), 1 TAB PO HS, (Reported) Discontinued Reason: Cancel Warfarin Sodium (Warfarin Sodium), 1 TAB PO DAILY, (Reported) Discontinued Reason: HOLD Warfarin Sodium (Warfarin Sodium), 0.5 TAB PO DAILY, (Reported) Discontinued Reason: HOLD Objective Vitals and I/O Vital Sign - Last 24 Hours 06/11/18 06/11/18 06/11/18 06/11/18 10:36 10:58 11:04 16:44 Temp 98.8 98.8 98.8 98.8 Pulse 84 81 70 Resp 18 18 B/P (MAP) 116/71 116/71 (86) 103/58 (73) Pulse Ox 93 96 O2 Delivery Nasal Cannula Nasal Canula Nasal Canula O2 Flow Rate 2.00 2.00 2.00 06/11/18 06/11/18 06/11/18 06/11/18 19:20 19:20 20:35 20:36 Temp 98.5 98.5 Pulse 66 66 66 Resp 18 B/P (MAP) 124/66 (85) 124/66 124/66 Pulse Ox 95 O2 Delivery Nasal Cannula Nasal Canula O2 Flow Rate 2.00 2.00 06/11/18 06/11/18 06/12/18 20:36 23:33 05:08 Temp 98.1 98.8 98.1 98.8 Pulse 67 75 65 Resp 16 18 18 B/P (MAP) 109/65 (80) 136/74 (94) Pulse Ox 95 97 93 O2 Delivery Nasal Cannula Nasal Canula Nasal Canula O2 Flow Rate 2.00 2.00 2.00 FiO2 28 Intake and Output 06/11/18 06/11/18 06/12/18 15:00 23:00 07:00 Intake Total 700 ml Output Total 650 ml 575 ml Balance 50 ml -575 ml General: Alert, Oriented X3, Cooperative, No acute distress HEENT: Atraumatic, PERRLA, EOMI, Mucous membr. moist/pink Neck: Supple, No JVD Lungs: Clear to auscultation, Normal air movement Heart: Normal S1, Normal S2, No murmurs Abdomen: Normal bowel sounds, Soft, No tenderness, No masses Extremities: Normal pulses, Other (LLE wound with dressing in place) Skin: Other (LLE wound with dressing in place) Neuro: Normal speech, Strength at 5/5 X4 ext, Normal tone, Sensation intact, Cranial nerves 3-12 NL, Other (resting tremor worse on right side) Psych/Mental Status: Mental status NL, Mood NL All Results(Lab/Rad) Laboratory Tests Test 06/11/18 16:25 06/12/18 05:17 White Blood Count 7.3 10^3/uL 6.3 10^3/uL Red Blood Count 3.04 10^6/uL 3.01 10^6/uL Hemoglobin 9.3 g/dL 9.1 g/dL Hematocrit 29.0 % 28.8 % Mean Corpuscular Volume 95.4 fL 95.7 fL Mean Corpuscular Hemoglobin 30.6 pg 30.2 pg Mean Corpuscular Hemoglobin Concent 32.1 g/dL 31.6 g/dL Red Cell Distribution Width 16.0 % 16.0 % Platelet Count 261 10^3/uL 267 10^3/uL Mean Platelet Volume 9.0 fL 9.1 fL Neutrophils (%) (Auto) 74.1 % 69.4 % Lymphocytes (%) (Auto) 8.3 % 11.7 % Monocytes (%) (Auto) 14.0 % 13.5 % Neutrophils # (Auto) 5.4 10^3/uL 4.4 10^3/uL Lymphocytes # (Auto) 0.6 10^3/uL 0.7 10^3/uL Monocytes # (Auto) 1.0 10^3/uL 0.9 10^3/uL Absolute Immature Granulocyte (auto 0.02 10^3 u/L 0.04 10^3 u/L Eosinophils % 3.2 % 4.6 % Basophils % 0.1 % 0.2 % Basophils # 0.0 10^3/uL 0.0 10^3/uL Eosinophil Count 0.2 10^3/uL 0.3 10^3/uL Sodium Level 141 mmol/L 142 mmol/L Potassium Level 4.0 mmol/L 3.8 mmol/L Chloride Level 103.0 mmol/L 104.0 mmol/L Carbon Dioxide Level 30.0 mmol/L 29.7 mmol/L Anion Gap 12.0 12.1 Blood Urea Nitrogen 15 mg/dL 14 mg/dL Creatinine 0.98 mg/dL 0.98 mg/dL Estimated GFR () 89.3 89.3 BUN/Creatinine Ratio 15.0 14.0 Glucose Level 112 mg/dL 104 mg/dL Calcium Level 8.4 mg/dL 8.5 mg/dL Total Bilirubin 1.2 mg/dL 1.1 mg/dL Aspartate Amino Transf (AST/SGOT) 31 U/L 31 U/L Alanine Aminotransferase (ALT/SGPT) 18 U/L 9 U/L Alkaline Phosphatase 65 U/L 65 U/L Total Protein 5.8 g/dL 5.9 g/dL Albumin 2.2 g/dL 2.4 g/dL Globulin 3.6 3.5 Percent Immature Gran (Cell Imm) 0.30 % 0.60 % Current Medications Medications (Trade) Dose Ordered Sig/Feliz Route PRN Reason Start Time Stop Time Status Last Admin Dose Admin Acetaminophen/ Codeine Phosphate (Tylenol #4) 1 tablet Q4 PRN PO PAIN 06/10/18 21:30 06/11/18 11:55 DC 06/10/18 22:32 Amiodarone HCl (Cordarone) 200 mg BID PO 06/10/18 21:30 07/10/18 21:29 06/11/18 20:35 Amoxicillin/ Clavulanate Potassium (Augmentin 875-125 Tablet) 1 each BIDM PO 06/11/18 08:00 07/11/18 07:59 06/11/18 16:40 Atorvastatin Calcium (Lipitor) 40 mg HS PO 06/11/18 21:00 06/11/18 21:00 DC Calcium Polycarbophil (Fibercon) 625 mg DAILY PO 06/11/18 09:00 07/11/18 08:59 06/11/18 08:42 Carbidopa/Levodopa (Sinemet 25/100) 1 each TID PO 06/11/18 09:00 07/11/18 08:59 06/11/18 20:35 Carvedilol (Coreg) 6.25 mg BID PO 06/11/18 09:00 07/11/18 08:59 06/11/18 20:36 Clonazepam (KlonoPIN) 0.5 mg TID PO 06/11/18 09:00 07/11/18 08:59 06/11/18 20:35 Digoxin (Lanoxin) 125 mcg DAILY PO 06/11/18 09:00 07/11/18 08:59 06/11/18 08:42 Pantoprazole Sodium (Protonix) 40 mg BID PO 06/11/18 09:00 07/11/18 08:59 06/11/18 20:36 Pantoprazole Sodium (Protonix) 40 mg DAILY PO 06/11/18 09:00 06/11/18 09:00 DC Paroxetine HCl (Paxil) 20 mg HS PO 06/11/18 21:00 07/11/18 20:59 06/10/18 22:30 Ramipril (Altace) 2.5 mg BID PO 06/10/18 21:30 07/10/18 21:29 06/10/18 22:29 Tramadol HCl (Ultram) 50 mg Q6 PO 06/11/18 00:00 06/11/18 05:08 DC Metformin HCl (Glucophage Xr) 1 mg DAILY PO 06/11/18 09:00 06/11/18 12:45 DC Atorvastatin Calcium (Lipitor) 40 mg STK-MED ONCE .ROUTE 06/10/18 22:18 06/10/18 22:19 DC Carvedilol (Coreg) 6.25 mg STK-MED ONCE .ROUTE 06/10/18 22:18 06/10/18 22:20 DC Carbidopa/Levodopa (Sinemet 25/100) 1 each STK-MED ONCE .ROUTE 06/10/18 22:18 06/10/18 22:20 DC Clonazepam (Klonopin) 0.5 mg STK-MED ONCE .ROUTE 06/10/18 22:19 06/10/18 22:21 DC Atorvastatin Calcium (Lipitor) 40 mg HS PO 06/10/18 23:00 06/11/18 05:08 DC Tramadol HCl (Ultram) 50 mg Q6 PRN PO PAIN 4 - 6 06/11/18 05:30 06/11/18 11:55 DC Atorvastatin Calcium (Lipitor) 40 mg HS PO 06/11/18 21:00 07/11/18 20:59 06/10/18 22:30 Acetaminophen/ Codeine Phosphate (Tylenol #3) 1 each Q4H PRN PO PAIN 4 - 6 06/11/18 12:00 4/9/19 11:59 06/11/18 12:05 Acetaminophen/ Codeine Phosphate (Tylenol #3) 2 each Q4H PRN PO PAIN 7 - 10 06/11/18 12:00 07/11/18 11:59 06/11/18 19:25 Metformin HCl (Glucophage Xr) 500 mg DAILY PO 06/12/18 09:00 07/12/18 08:59 Dexamethasone Sodium Phosphate (Decadron) 4 mg STK-MED ONCE .ROUTE 06/12/18 06:50 06/12/18 06:52 DC Ondansetron HCl (Zofran) 4 mg STK-MED ONCE .ROUTE 06/12/18 06:50 06/12/18 06:52 DC Etomidate (Amidate) 40 mg STK-MED ONCE IV 06/12/18 06:50 06/12/18 06:52 DC Fentanyl Citrate (Sublimaze) 100 mcg STK-MED ONCE .ROUTE 06/12/18 06:51 06/12/18 06:52 DC Propofol (Diprivan) 200 mg STK-MED ONCE IV 06/12/18 06:51 06/12/18 06:52 DC Sodium Chloride 100 ml @ ud STK-MED ONCE IV 06/12/18 06:52 06/12/18 06:53 DC Course Sepsis Screening Results: Posi: POSITIVE Sepsis Qualifier/Stage: SEPSIS RISK Duration or Total Time Spent w: 30 mins Vitals & review Data Vital Sign - Last 24 Hours 06/11/18 06/11/18 06/11/18 06/11/18 10:36 10:58 11:04 16:44 Temp 98.8 98.8 98.8 98.8 Pulse 84 81 70 Resp 18 18 B/P (MAP) 116/71 116/71 (86) 103/58 (73) Pulse Ox 93 96 O2 Delivery Nasal Cannula Nasal Canula Nasal Canula O2 Flow Rate 2.00 2.00 2.00 06/11/18 06/11/18 06/11/18 06/11/18 19:20 19:20 20:35 20:36 Temp 98.5 98.5 Pulse 66 66 66 Resp 18 B/P (MAP) 124/66 (85) 124/66 124/66 Pulse Ox 95 O2 Delivery Nasal Cannula Nasal Canula O2 Flow Rate 2.00 2.00 06/11/18 06/11/18 06/12/18 20:36 23:33 05:08 Temp 98.1 98.8 98.1 98.8 Pulse 67 75 65 Resp 16 18 18 B/P (MAP) 109/65 (80) 136/74 (94) Pulse Ox 95 97 93 O2 Delivery Nasal Cannula Nasal Canula Nasal Canula O2 Flow Rate 2.00 2.00 2.00 FiO2 28 Intake and Output 06/11/18 06/11/18 06/12/18 15:00 23:00 07:00 Intake Total 700 ml Output Total 650 ml 575 ml Balance 50 ml -575 ml Laboratory Tests Test 06/11/18 16:25 06/12/18 05:17 White Blood Count 7.3 10^3/uL 6.3 10^3/uL Red Blood Count 3.04 10^6/uL 3.01 10^6/uL Hemoglobin 9.3 g/dL 9.1 g/dL Hematocrit 29.0 % 28.8 % Mean Corpuscular Volume 95.4 fL 95.7 fL Mean Corpuscular Hemoglobin 30.6 pg 30.2 pg Mean Corpuscular Hemoglobin Concent 32.1 g/dL 31.6 g/dL Red Cell Distribution Width 16.0 % 16.0 % Platelet Count 261 10^3/uL 267 10^3/uL Mean Platelet Volume 9.0 fL 9.1 fL Neutrophils (%) (Auto) 74.1 % 69.4 % Lymphocytes (%) (Auto) 8.3 % 11.7 % Monocytes (%) (Auto) 14.0 % 13.5 % Neutrophils # (Auto) 5.4 10^3/uL 4.4 10^3/uL Lymphocytes # (Auto) 0.6 10^3/uL 0.7 10^3/uL Monocytes # (Auto) 1.0 10^3/uL 0.9 10^3/uL Absolute Immature Granulocyte (auto 0.02 10^3 u/L 0.04 10^3 u/L Eosinophils % 3.2 % 4.6 % Basophils % 0.1 % 0.2 % Basophils # 0.0 10^3/uL 0.0 10^3/uL Eosinophil Count 0.2 10^3/uL 0.3 10^3/uL Sodium Level 141 mmol/L 142 mmol/L Potassium Level 4.0 mmol/L 3.8 mmol/L Chloride Level 103.0 mmol/L 104.0 mmol/L Carbon Dioxide Level 30.0 mmol/L 29.7 mmol/L Anion Gap 12.0 12.1 Blood Urea Nitrogen 15 mg/dL 14 mg/dL Creatinine 0.98 mg/dL 0.98 mg/dL Estimated GFR () 89.3 89.3 BUN/Creatinine Ratio 15.0 14.0 Glucose Level 112 mg/dL 104 mg/dL Calcium Level 8.4 mg/dL 8.5 mg/dL Total Bilirubin 1.2 mg/dL 1.1 mg/dL Aspartate Amino Transf (AST/SGOT) 31 U/L 31 U/L Alanine Aminotransferase (ALT/SGPT) 18 U/L 9 U/L Alkaline Phosphatase 65 U/L 65 U/L Total Protein 5.8 g/dL 5.9 g/dL Albumin 2.2 g/dL 2.4 g/dL Globulin 3.6 3.5 Percent Immature Gran (Cell Imm) 0.30 % 0.60 % Current Medications Medications (Trade) Dose Ordered Sig/Feliz PRN Reason Start Time Stop Time Status Last Admin Acetaminophen/ Codeine Phosphate (Tylenol #3) 1 each Q4H PRN PAIN 4 - 6 06/11/18 12:00 07/11/18 11:59 06/11/18 12:05 Acetaminophen/ Codeine Phosphate (Tylenol #3) 2 each Q4H PRN PAIN 7 - 10 06/11/18 12:00 07/11/18 11:59 06/11/18 19:25 Amiodarone HCl (Cordarone) 200 mg BID 06/10/18 21:30 07/10/18 21:29 06/11/18 20:35 Amoxicillin/ Clavulanate Potassium (Augmentin 875-125 Tablet) 1 each BIDM 06/11/18 08:00 07/11/18 07:59 06/11/18 16:40 Atorvastatin Calcium (Lipitor) 40 mg HS 06/11/18 21:00 07/11/18 20:59 06/10/18 22:30 Calcium Polycarbophil (Fibercon) 625 mg DAILY 06/11/18 09:00 07/11/18 08:59 06/11/18 08:42 Carbidopa/Levodopa (Sinemet 25/100) 1 each TID 06/11/18 09:00 07/11/18 08:59 06/11/18 20:35 Carvedilol (Coreg) 6.25 mg BID 06/11/18 09:00 07/11/18 08:59 06/11/18 20:36 Clonazepam (KlonoPIN) 0.5 mg TID 06/11/18 09:00 07/11/18 08:59 06/11/18 20:35 Digoxin (Lanoxin) 125 mcg DAILY 06/11/18 09:00 07/11/18 08:59 06/11/18 08:42 Metformin HCl (Glucophage Xr) 500 mg DAILY 06/12/18 09:00 07/12/18 08:59 Pantoprazole Sodium (Protonix) 40 mg BID 06/11/18 09:00 07/11/18 08:59 06/11/18 20:36 Paroxetine HCl (Paxil) 20 mg HS 06/11/18 21:00 07/11/18 20:59 06/10/18 22:30 Ramipril (Altace) 2.5 mg BID 06/10/18 21:30 07/10/18 21:29 06/10/18 22:29 Sepsis Infection Criteria Pres: Suspected Infection LEVEL 1 SEPSIS INFECTION CRITE: ABX Therapy, Recent Invasive Procedure LEVEL 2-SIRS (LIST ALL THAT AP: None/Not assessed Cardiovascular Evidence: Not Assessed or None Hematologic Evidence: None/Not assessed Hepatic Evidence: None/Not assessed Metabolic Evidence: None/Not assessed Neurological Evidence: None/Not assessed Respiratory Evidence: Need for O2 to keep>90% Renal Evidence: None/Not assessed O2 Sat by Pulse Oximetry: 95 Oxygen Flow Rate: 3.00 Assessment/Plan Assessment/Plan Assessment/Plan 1. 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 OR today for debridement. Cont PO abx. 2. DM: cont Oral hypoglycemics. 3. HTN: cont BB, DONTAE 4. Parkinson's Disease: cont Sinemet 5. Chronic Afib: cont dig/Amio. Restart Eliquis for anticoagulation per surgery. 6. HLD: cont Statin 7. Heart Failure with Reduced EF: no acute exacerbation. Cont DONTAE/BB. 8. PPx: PPI Plan 1. 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 OR today for debridement. Cont PO abx. 2. DM: cont Oral hypoglycemics. 3. HTN: cont BB, DONTAE 4. Parkinson's Disease: cont Sinemet 5. Chronic Afib: cont dig/Amio. Restart Eliquis for anticoagulation per surgery. 6. HLD: cont Statin 7. Heart Failure with Reduced EF: no acute exacerbation. Cont DONTAE/BB. 8. PPx: PPI ARACELI HUMPHREY MD Jun 13, 2018 09:31
--- NOTE | 2018-06-13 09:55 | PRM.PN ---
Subjective Subjective Date: Jun 13, 2018 Time: 09:54 Subjective No major events overnight. Still with considerable pain in his left post-op but able to transfer. No other complaints. Patient History: No known health problems 32 MOTHER, , Age:87 19 CHILD 19 CHILD, , Age:27 19 CHILD, , Age:54 Parkinson's disease G8 BROTHER, , Age:81 No Family History of: Alzheimer's disease Asthma Cerebrovascular disorder Chronic obstructive pulmonary disease Congestive heart failure Diabetes insipidus Diabetes mellitus Hypertension VTE VTE Risk Total Score: 5 VTE Risk Score VTE Risk: Score 0-1 = Low Risk (Aggressive mobilization; early ambulation; no VTE prophylaxis required) Score 2: Moderate Risk (Intermittent/Pneumatic Compression Device OR Lovenox/Heparin/Coumadin) Score 3-4: High Risk (Intermittent/Pneumatic Compression Device AND Lovenox/Heparin/Coumadin) Score > or =5: Highest Risk (Intermittent/Pneumatic Compression Device AND Lovenox/Heparin/Coumadin) Review of Systems Constitutional: Weakness; No: Fever, Chills, Sweats, Malaise, Other Respiratory: No: Cough, Dry, Shortness of breath, SOB with excertion, Wheezing , Hemoptysis, Pleuritic Pain, Sputum, Wheezing, Other Cardiovascular: No: Chest Pain, Palpitations, Orthopnea, Paroxysmal Noc. Dyspnea, Edema, Lt Headedness, Other Gastrointestinal: No: Nausea, Vomiting, Abdominal Pain, Diarrhea, Constipation , Melena, Hematochezia, Other Musculoskeletal: leg pain Neurological: Weakness; No: Numbness, Incoordination, Change in speech, Confusion, Seizures, Other Allergies: Coded Allergies: morphine (Verified Allergy, Severe, HALLUCINATIONS, 10/27/16) Scheduled Amiodarone Hcl (Cordarone), 200 MG PO BID Amoxicillin/Potassium Clav (Augmentin 875-125 Tablet), 1 EACH PO BIDM Atorvastatin 40MG (Lipitor 40MG), 40 MG PO HS Calcium Polycarbophil (Fibercon), 625 MG PO DAILY Carbidopa/Levodopa (Sinemet 25-100 Mg Tablet), 1 TAB PO TID, (Reported) Carvedilol 6.25MG (Coreg 6.25MG), 1 TAB PO BID, (Reported) Clonazepam (Clonazepam), 1 TAB PO TID, (Reported) Digoxin (Digitek), 125 MCG PO DAILY, (Reported) Metformin Hcl (Metformin Hcl Er), 1 TAB PO DAILY, (Reported) Pantoprazole Sodium (Protonix), 1 TAB PO BID, (Reported) Pantoprazole Sodium (Protonix), 40 MG PO DAILY Paroxetine Hcl (Paroxetine Hcl), 1 TAB PO HS, (Reported) Ramipril 2.5MG (Altace 2.5MG), 2.5 MG PO BID [Multivitamin,Therapeutic], 1 EACH PO DAILY Scheduled PRN Acetaminophen With Codeine (Tylenol With Codeine #4 Tablet), 1-2 EACH PO Q4 PRN for PAIN Discontinued Medications Apixaban (Eliquis), 2.5 MG PO BID Discontinued Reason: HOLD Aspirin (Aspir 81), 1 TAB PO DAILY, (Reported) Discontinued Reason: HOLD Simvastatin (Simvastatin), 1 TAB PO HS, (Reported) Discontinued Reason: Cancel Tramadol Hcl (Tramadol Hcl), 1 TAB PO Q6, (Reported) Discontinued Reason: No Longer Taking Warfarin Sodium (Warfarin Sodium), 1 TAB PO DAILY, (Reported) Discontinued Reason: HOLD Warfarin Sodium (Warfarin Sodium), 0.5 TAB PO DAILY, (Reported) Discontinued Reason: HOLD Objective Vitals and I/O Vital Sign - Last 24 Hours 06/11/18 06/11/18 06/11/18 06/11/18 10:36 10:58 11:04 16:44 Temp 98.8 98.8 98.8 98.8 Pulse 84 81 70 Resp 18 18 B/P (MAP) 116/71 116/71 (86) 103/58 (73) Pulse Ox 93 96 O2 Delivery Nasal Cannula Nasal Canula Nasal Canula O2 Flow Rate 2.00 2.00 2.00 06/11/18 06/11/18 06/11/18 06/11/18 19:20 19:20 20:35 20:36 Temp 98.5 98.5 Pulse 66 66 66 Resp 18 B/P (MAP) 124/66 (85) 124/66 124/66 Pulse Ox 95 O2 Delivery Nasal Cannula Nasal Canula O2 Flow Rate 2.00 2.00 06/11/18 06/11/18 06/12/18 20:36 23:33 05:08 Temp 98.1 98.8 98.1 98.8 Pulse 67 75 65 Resp 16 18 18 B/P (MAP) 109/65 (80) 136/74 (94) Pulse Ox 95 97 93 O2 Delivery Nasal Cannula Nasal Canula Nasal Canula O2 Flow Rate 2.00 2.00 2.00 FiO2 28 Intake and Output 06/11/18 06/11/18 06/12/18 15:00 23:00 07:00 Intake Total 700 ml Output Total 650 ml 575 ml Balance 50 ml -575 ml General: Alert, Oriented X3, Cooperative, No acute distress HEENT: Atraumatic, PERRLA, EOMI, Mucous membr. moist/pink Neck: Supple, No JVD Lungs: Clear to auscultation, Normal air movement Heart: Normal S1, Normal S2, No murmurs Abdomen: Normal bowel sounds, Soft, No tenderness, No masses Extremities: Normal pulses, Other (LLE wound with dressing in place) Skin: Other (LLE wound with dressing in place) Neuro: Normal speech, Strength at 5/5 X4 ext, Normal tone, Sensation intact, Cranial nerves 3-12 NL, Other (resting tremor worse on right side) Psych/Mental Status: Mental status NL, Mood NL All Results(Lab/Rad) Laboratory Tests Test 06/11/18 16:25 06/12/18 05:17 White Blood Count 7.3 10^3/uL 6.3 10^3/uL Red Blood Count 3.04 10^6/uL 3.01 10^6/uL Hemoglobin 9.3 g/dL 9.1 g/dL Hematocrit 29.0 % 28.8 % Mean Corpuscular Volume 95.4 fL 95.7 fL Mean Corpuscular Hemoglobin 30.6 pg 30.2 pg Mean Corpuscular Hemoglobin Concent 32.1 g/dL 31.6 g/dL Red Cell Distribution Width 16.0 % 16.0 % Platelet Count 261 10^3/uL 267 10^3/uL Mean Platelet Volume 9.0 fL 9.1 fL Neutrophils (%) (Auto) 74.1 % 69.4 % Lymphocytes (%) (Auto) 8.3 % 11.7 % Monocytes (%) (Auto) 14.0 % 13.5 % Neutrophils # (Auto) 5.4 10^3/uL 4.4 10^3/uL Lymphocytes # (Auto) 0.6 10^3/uL 0.7 10^3/uL Monocytes # (Auto) 1.0 10^3/uL 0.9 10^3/uL Absolute Immature Granulocyte (auto 0.02 10^3 u/L 0.04 10^3 u/L Eosinophils % 3.2 % 4.6 % Basophils % 0.1 % 0.2 % Basophils # 0.0 10^3/uL 0.0 10^3/uL Eosinophil Count 0.2 10^3/uL 0.3 10^3/uL Sodium Level 141 mmol/L 142 mmol/L Potassium Level 4.0 mmol/L 3.8 mmol/L Chloride Level 103.0 mmol/L 104.0 mmol/L Carbon Dioxide Level 30.0 mmol/L 29.7 mmol/L Anion Gap 12.0 12.1 Blood Urea Nitrogen 15 mg/dL 14 mg/dL Creatinine 0.98 mg/dL 0.98 mg/dL Estimated GFR () 89.3 89.3 BUN/Creatinine Ratio 15.0 14.0 Glucose Level 112 mg/dL 104 mg/dL Calcium Level 8.4 mg/dL 8.5 mg/dL Total Bilirubin 1.2 mg/dL 1.1 mg/dL Aspartate Amino Transf (AST/SGOT) 31 U/L 31 U/L Alanine Aminotransferase (ALT/SGPT) 18 U/L 9 U/L Alkaline Phosphatase 65 U/L 65 U/L Total Protein 5.8 g/dL 5.9 g/dL Albumin 2.2 g/dL 2.4 g/dL Globulin 3.6 3.5 Percent Immature Gran (Cell Imm) 0.30 % 0.60 % Current Medications Medications (Trade) Dose Ordered Sig/Feliz Route PRN Reason Start Time Stop Time Status Last Admin Dose Admin Acetaminophen/ Codeine Phosphate (Tylenol #4) 1 tablet Q4 PRN PO PAIN 06/10/18 21:30 06/11/18 11:55 DC 06/10/18 22:32 Amiodarone HCl (Cordarone) 200 mg BID PO 06/10/18 21:30 07/10/18 21:29 06/11/18 20:35 Amoxicillin/ Clavulanate Potassium (Augmentin 875-125 Tablet) 1 each BIDM PO 06/11/18 08:00 07/11/18 07:59 06/11/18 16:40 Atorvastatin Calcium (Lipitor) 40 mg HS PO 06/11/18 21:00 06/11/18 21:00 DC Calcium Polycarbophil (Fibercon) 625 mg DAILY PO 06/11/18 09:00 07/11/18 08:59 06/11/18 08:42 Carbidopa/Levodopa (Sinemet 25/100) 1 each TID PO 06/11/18 09:00 07/11/18 08:59 06/11/18 20:35 Carvedilol (Coreg) 6.25 mg BID PO 06/11/18 09:00 07/11/18 08:59 06/11/18 20:36 Clonazepam (KlonoPIN) 0.5 mg TID PO 06/11/18 09:00 07/11/18 08:59 06/11/18 20:35 Digoxin (Lanoxin) 125 mcg DAILY PO 06/11/18 09:00 07/11/18 08:59 06/11/18 08:42 Pantoprazole Sodium (Protonix) 40 mg BID PO 06/11/18 09:00 07/11/18 08:59 06/11/18 20:36 Pantoprazole Sodium (Protonix) 40 mg DAILY PO 06/11/18 09:00 06/11/18 09:00 DC Paroxetine HCl (Paxil) 20 mg HS PO 06/11/18 21:00 07/11/18 20:59 06/10/18 22:30 Ramipril (Altace) 2.5 mg BID PO 06/10/18 21:30 07/10/18 21:29 06/10/18 22:29 Tramadol HCl (Ultram) 50 mg Q6 PO 06/11/18 00:00 06/11/18 05:08 DC Metformin HCl (Glucophage Xr) 1 mg DAILY PO 06/11/18 09:00 06/11/18 12:45 DC Atorvastatin Calcium (Lipitor) 40 mg STK-MED ONCE .ROUTE 06/10/18 22:18 06/10/18 22:19 DC Carvedilol (Coreg) 6.25 mg STK-MED ONCE .ROUTE 06/10/18 22:18 06/10/18 22:20 DC Carbidopa/Levodopa (Sinemet 25/100) 1 each STK-MED ONCE .ROUTE 06/10/18 22:18 06/10/18 22:20 DC Clonazepam (Klonopin) 0.5 mg STK-MED ONCE .ROUTE 06/10/18 22:19 06/10/18 22:21 DC Atorvastatin Calcium (Lipitor) 40 mg HS PO 06/10/18 23:00 06/11/18 05:08 DC Tramadol HCl (Ultram) 50 mg Q6 PRN PO PAIN 4 - 6 06/11/18 05:30 06/11/18 11:55 DC Atorvastatin Calcium (Lipitor) 40 mg HS PO 06/11/18 21:00 07/11/18 20:59 06/10/18 22:30 Acetaminophen/ Codeine Phosphate (Tylenol #3) 1 each Q4H PRN PO PAIN 4 - 6 06/11/18 12:00 07/11/18 11:59 06/11/18 12:05 Acetaminophen/ Codeine Phosphate (Tylenol #3) 2 each Q4H PRN PO PAIN 7 - 10 06/11/18 12:00 07/11/18 11:59 06/11/18 19:25 Metformin HCl (Glucophage Xr) 500 mg DAILY PO 06/12/18 09:00 07/12/18 08:59 Dexamethasone Sodium Phosphate (Decadron) 4 mg STK-MED ONCE .ROUTE 06/12/18 06:50 06/12/18 06:52 DC Ondansetron HCl (Zofran) 4 mg STK-MED ONCE .ROUTE 06/12/18 06:50 06/12/18 06:52 DC Etomidate (Amidate) 40 mg STK-MED ONCE IV 06/12/18 06:50 06/12/18 06:52 DC Fentanyl Citrate (Sublimaze) 100 mcg STK-MED ONCE .ROUTE 06/12/18 06:51 06/12/18 06:52 DC Propofol (Diprivan) 200 mg STK-MED ONCE IV 06/12/18 06:51 06/12/18 06:52 DC Sodium Chloride 100 ml @ ud STK-MED ONCE IV 06/12/18 06:52 06/12/18 06:53 DC Course Sepsis Screening Results: Posi: NEGATIVE Sepsis Qualifier/Stage: NO DEFINITE RISK Duration or Total Time Spent w: 30 mins Vitals & review Data Vital Sign - Last 24 Hours 06/11/18 06/11/18 06/11/18 06/11/18 10:36 10:58 11:04 16:44 Temp 98.8 98.8 98.8 98.8 Pulse 84 81 70 Resp 18 18 B/P (MAP) 116/71 116/71 (86) 103/58 (73) Pulse Ox 93 96 O2 Delivery Nasal Cannula Nasal Canula Nasal Canula O2 Flow Rate 2.00 2.00 2.00 06/11/18 06/11/18 06/11/18 06/11/18 19:20 19:20 20:35 20:36 Temp 98.5 98.5 Pulse 66 66 66 Resp 18 B/P (MAP) 124/66 (85) 124/66 124/66 Pulse Ox 95 O2 Delivery Nasal Cannula Nasal Canula O2 Flow Rate 2.00 2.00 06/11/18 06/11/18 06/12/18 20:36 23:33 05:08 Temp 98.1 98.8 98.1 98.8 Pulse 67 75 65 Resp 16 18 18 B/P (MAP) 109/65 (80) 136/74 (94) Pulse Ox 95 97 93 O2 Delivery Nasal Cannula Nasal Canula Nasal Canula O2 Flow Rate 2.00 2.00 2.00 FiO2 28 Intake and Output 06/11/18 06/11/18 06/12/18 15:00 23:00 07:00 Intake Total 700 ml Output Total 650 ml 575 ml Balance 50 ml -575 ml Laboratory Tests Test 06/11/18 16:25 06/12/18 05:17 White Blood Count 7.3 10^3/uL 6.3 10^3/uL Red Blood Count 3.04 10^6/uL 3.01 10^6/uL Hemoglobin 9.3 g/dL 9.1 g/dL Hematocrit 29.0 % 28.8 % Mean Corpuscular Volume 95.4 fL 95.7 fL Mean Corpuscular Hemoglobin 30.6 pg 30.2 pg Mean Corpuscular Hemoglobin Concent 32.1 g/dL 31.6 g/dL Red Cell Distribution Width 16.0 % 16.0 % Platelet Count 261 10^3/uL 267 10^3/uL Mean Platelet Volume 9.0 fL 9.1 fL Neutrophils (%) (Auto) 74.1 % 69.4 % Lymphocytes (%) (Auto) 8.3 % 11.7 % Monocytes (%) (Auto) 14.0 % 13.5 % Neutrophils # (Auto) 5.4 10^3/uL 4.4 10^3/uL Lymphocytes # (Auto) 0.6 10^3/uL 0.7 10^3/uL Monocytes # (Auto) 1.0 10^3/uL 0.9 10^3/uL Absolute Immature Granulocyte (auto 0.02 10^3 u/L 0.04 10^3 u/L Eosinophils % 3.2 % 4.6 % Basophils % 0.1 % 0.2 % Basophils # 0.0 10^3/uL 0.0 10^3/uL Eosinophil Count 0.2 10^3/uL 0.3 10^3/uL Sodium Level 141 mmol/L 142 mmol/L Potassium Level 4.0 mmol/L 3.8 mmol/L Chloride Level 103.0 mmol/L 104.0 mmol/L Carbon Dioxide Level 30.0 mmol/L 29.7 mmol/L Anion Gap 12.0 12.1 Blood Urea Nitrogen 15 mg/dL 14 mg/dL Creatinine 0.98 mg/dL 0.98 mg/dL Estimated GFR () 89.3 89.3 BUN/Creatinine Ratio 15.0 14.0 Glucose Level 112 mg/dL 104 mg/dL Calcium Level 8.4 mg/dL 8.5 mg/dL Total Bilirubin 1.2 mg/dL 1.1 mg/dL Aspartate Amino Transf (AST/SGOT) 31 U/L 31 U/L Alanine Aminotransferase (ALT/SGPT) 18 U/L 9 U/L Alkaline Phosphatase 65 U/L 65 U/L Total Protein 5.8 g/dL 5.9 g/dL Albumin 2.2 g/dL 2.4 g/dL Globulin 3.6 3.5 Percent Immature Gran (Cell Imm) 0.30 % 0.60 % Current Medications Medications (Trade) Dose Ordered Sig/Feliz PRN Reason Start Time Stop Time Status Last Admin Acetaminophen/ Codeine Phosphate (Tylenol #3) 1 each Q4H PRN PAIN 4 - 6 06/11/18 12:00 07/11/18 11:59 06/11/18 12:05 Acetaminophen/ Codeine Phosphate (Tylenol #3) 2 each Q4H PRN PAIN 7 - 10 06/11/18 12:00 07/11/18 11:59 06/11/18 19:25 Amiodarone HCl (Cordarone) 200 mg BID 06/10/18 21:30 07/10/18 21:29 06/11/18 20:35 Amoxicillin/ Clavulanate Potassium (Augmentin 875-125 Tablet) 1 each BIDM 06/11/18 08:00 07/11/18 07:59 06/11/18 16:40 Atorvastatin Calcium (Lipitor) 40 mg HS 06/11/18 21:00 07/11/18 20:59 06/10/18 22:30 Calcium Polycarbophil (Fibercon) 625 mg DAILY 06/11/18 09:00 07/11/18 08:59 06/11/18 08:42 Carbidopa/Levodopa (Sinemet 25/100) 1 each TID 06/11/18 09:00 07/11/18 08:59 06/11/18 20:35 Carvedilol (Coreg) 6.25 mg BID 06/11/18 09:00 07/11/18 08:59 06/11/18 20:36 Clonazepam (KlonoPIN) 0.5 mg TID 06/11/18 09:00 07/11/18 08:59 06/11/18 20:35 Digoxin (Lanoxin) 125 mcg DAILY 06/11/18 09:00 07/11/18 08:59 06/11/18 08:42 Metformin HCl (Glucophage Xr) 500 mg DAILY 06/12/18 09:00 07/12/18 08:59 Pantoprazole Sodium (Protonix) 40 mg BID 06/11/18 09:00 07/11/18 08:59 06/11/18 20:36 Paroxetine HCl (Paxil) 20 mg HS 06/11/18 21:00 07/11/18 20:59 06/10/18 22:30 Ramipril (Altace) 2.5 mg BID 06/10/18 21:30 07/10/18 21:29 06/10/18 22:29 Sepsis Infection Criteria Pres: Suspected Infection LEVEL 1 SEPSIS INFECTION CRITE: ABX Therapy, Recent Invasive Procedure LEVEL 2-SIRS (LIST ALL THAT AP: None/Not assessed Cardiovascular Evidence: Not Assessed or None Hematologic Evidence: None/Not assessed Hepatic Evidence: None/Not assessed Metabolic Evidence: None/Not assessed Neurological Evidence: None/Not assessed Respiratory Evidence: None/Not assessed Renal Evidence: None/Not assessed O2 Sat by Pulse Oximetry: 93 Oxygen Flow Rate: 2.00 Assessment/Plan Assessment/Plan Assessment/Plan 1. LLE Hematoma with Compartment syndrome s/p Fasciotomy: Stable after return to OR yesterday. - Ortho managing. Cont PO abx. 2. DM: Stable. - cont Oral hypoglycemics. 3. HTN: cont BB, DONTAE 4. Parkinson's Disease: At baseline. - cont Sinemet 5. Chronic Afib: cont dig/Amio. - Restart Eliquis for anticoagulation per surgery, however I would strongly recommend him not being on Eliquis long-term if he is going to be walking. His fall risk is too great. 6. HLD: cont Statin 7. Heart Failure with Reduced EF: no acute exacerbation. Cont DONTAE/BB. LONG ORTEGA MD Jun 13, 2018 09:55
--- NOTE | 2018-06-13 10:51 | NUR ---
status dr perez notified of pt hallucinations, pt states, " I keep seeing a biker lavonne, but i know he isn't real." no s/s of distress noted. order received from dr. perez to hold tylenol #3. will cont to monitor. call light within reach.
--- NOTE | 2018-06-13 12:03 | NUR ---
report report called to lin almeida at [facility]
[2018-06-13] MEDS ORDERED: NS 1000ML 1,000 ML ONE (13:36)
[2018-06-13 13:42] VITALS: BP 130/73
--- NOTE | 2018-06-13 13:42 | NUR ---
d/c d/c instructions given to pt, verbalized and written understanding obtained. no s/s of distress noted. pt transferred to [facility] by [facility]. off of floor via gurney with ems staff. relinquished care of pt
--- NOTE | 2018-06-13 21:34 | DSH ---
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 OTHER DIAGNOSES: Include sleep apnea, Parkinson's, diabetes, hypertension, coronary artery disease, history of atrial fibrillation, anemia. DISCHARGE DIAGNOSES: Include sleep apnea, Parkinson's, diabetes, hypertension, coronary artery disease, history of atrial fibrillation, anemia. OPERATIVE DATE: 06/12/2018 PROCEDURE PERFORMED: Debridement of necrotic skin and subcutaneous tissue about the left lower leg. CONSULTATIONS: Will be Dr. Kulkarni. COMPLICATIONS: None. SUMMARY OF ADMISSION: The patient is a 77-year-old male who was initially admitted to the hospital approximately 10 days ago with a compartment syndrome of his left lower leg secondary to a large hematoma about the lower leg after he fell. The patient at that time was on Coumadin and developed a large hematoma over several days prior to his admission. At that point, the patient underwent I and D of his leg with 4 compartment fasciotomies. The patient was taken back to the operating room several days later and the wound was debrided. The patient had a wound VAC placed and was discharged from our hospital on 06/09 to a [facility] in [place]. On 06/10, the patient's wound VAC was being changed by the nurses at the [facility] and the family was concerned about the patient's wounds and said they basically brought him back to the [facility] in their private vehicle. At that time, the patient had developed some more necrosis about the anterior and posterior skin edges about the wound and was readmitted by myself. The patient was taken to the operating room yesterday for a repeat irrigation and debridement of his wounds. At that time, the patient had full thickness skin loss consistent with dry gangrene about some tissue anteriorly and posteriorly about the wound. The patient had the nonviable necrotic skin debrided. The underlying muscle was clean and healthy. There were no signs of infection. After the final debridement, the wound over the anterolateral portion of his leg was approximately 30 cm in length and approximately 15 cm in width. The skin in my opinion had completely declared itself and we debrided all necrotic tissue back to healthy bleeding skin. The patient's medial wound had been closed about a week ago. It was clean and dry. The patient on discharge is tolerating a regular diet well. He has some weak dorsiflexion about his toes and ankle. He states that he does have sensation about the first webspace to light touch. The patient is afebrile. His ____ has been held over the last several days because of the impending surgery. The patient is being discharged today to the [facility] in [place] for prolonged wound and nursing care as well as physical therapy. The patient will need to have wound care and eventually a skin graft in my opinion. The patient is on a regular diet. This therapist has been able to ambulate him a short distance weightbearing as tolerated on the left leg. Oseas Calle MD DR: ANILA/gabby JOB# [id number]
== END 2018-06-13 13:30 | DRG 907 ==
LOC: ER 16:40 → MS 18:48 → EDPENDDISTM 06-13 13:42
PROVIDERS: ADMIT Orthopaedic Surgery; ATTEND Orthopaedic Surgery
PROC: 0KDT0ZZ Extraction of Left Lower Leg Muscle, Open Approach (ICD-10-PCS; principal; 2018-06-12 14:33)
DX: L76.82 Other postprocedural complications of skin and subcutaneous tissue (principal); E43 Unspecified severe protein-calorie malnutrition; I50.22 Chronic systolic (congestive) heart failure; E11.52 Type 2 diabetes mellitus with diabetic peripheral angiopathy with gangrene; I96 Gangrene, not elsewhere classified; I11.0 Hypertensive heart disease with heart failure; G20 Parkinson's disease; I48.2 Chronic atrial fibrillation; E78.5 Hyperlipidemia, unspecified; G47.30 Sleep apnea, unspecified; I25.10 Atherosclerotic heart disease of native coronary artery without angina pectoris; Z96.653 Presence of artificial knee joint, bilateral; L98.9 Disorder of the skin and subcutaneous tissue, unspecified; M19.90 Unspecified osteoarthritis, unspecified site; Y83.8 Other surgical procedures as the cause of abnormal reaction of the patient, or of later complication, without mention of misadventure at the time of the procedure; Y82.8 Other medical devices associated with adverse incidents; Z91.81 History of falling; Z95.5 Presence of coronary angioplasty implant and graft; Z88.5 Allergy status to narcotic agent; Y92.89 Other specified places as the place of occurrence of the external cause; Z68.24 Body mass index [BMI] 24.0-24.9, adult
CPT/HCPCS: 36415; 80053; 82948; 85025; 93005; 97162; 99285; A4217; G0378; J0690; J1100; J2405; J3010; J3490; J7030; J7050; A9270